=== PATIENT | female | born 1960 | race Caucasian/White ===

== ENCOUNTER 2017-08-03 12:04 | Inpatient (IN) | payer MEDICAID ==
--- NOTE | 2017-08-03 12:20 | ED Physician Chart ---
ED Chief Complaint/HPI - Patient Information Date Seen:: 08/03/17 Time Seen:: 12:10 Chief Complaint:: Weakness History of Present Illness:: onset x one day of weakness and dizziness; pt denies trauma, H/As, S/T, neck pain, cough, C/P. SOB, Abd. Pain, A/N/V/D/C, fever, chills, or urinary s/s Allergies:: Allergies Allergy/AdvReac Type Severity Reaction Status Date / Time warfarin Allergy Verified 07/18/16 21:13 Historian:: Patient, EMS Review:: Nurse's Note Reviewed, EMS run form Reviewed ED Review of Systems - Review of Systems General/Constitutional: No fever, No chills, No weight loss, No weakness, No diaphoresis, No edema, No loss of appetite Skin: No skin lesions, No rash, No bruising Head: No headache, No light-headedness Eyes: No loss of vision, No pain, No diplopia ENT: No earache, No nasal drainage, No sore throat, No tinnitus Neck: No neck pain, No swelling, No thyromegaly, No stiffness, No mass noted Cardio Vascular: No chest pain, No palpitations, No PND, No orthopnea, No edema Pulmonary: No SOB, No cough, No sputum, No wheezing GI: No nausea, No vomiting, No diarrhea, No pain, No melena, No hematochezia, No constipation, No hematemesis G/U: No dysuria, No frequency, No hematuria, No nacturia [employer] Gas: No vaginal discharge, No abnormal vaginal bleed, No contraction Musculoskeletal: No bone or joint pain, No back pain, No muscle pain Endocrine: Polyuria, Polydipsia Psychiatric: No prior psych history, No depression, No anxiety, No suicidal ideation Hematopoietic: No bruising, No lymphadenopathy Allergic/Immuno: No urticaria, No angioedema Neurological: No syncope, No focal symptoms, No weakness, No paresthesia, No headache, No seizure, No dizziness, No confusion, No vertigo ED Past Medical History - Past Medical History Obtainable: Yes Past Medical History: DM Family History: Diabetes [place] Social History: Non Smoker, No Alcohol, No Drug Use, Single, Homeless Surgical History: None Psychiatricy History: None Medication: Reviewed Family Medical History - Family Member Mother History Unknown: Yes ED Physical Exam - Physical Examination General/Constitutional: Awake, Well-developed, well-nourished, Alert, No distress, GCS 15, Non-toxic appearing, Ambulatory Head: Atraumatic Eyes: Lids, conjuctiva normal, PERRL, EOMI Skin: Nl inspection, No rash, No skin lesions, No ecchymosis, Well hydrated, No lymphadenopathy ENMT: External ears, nose nl, TM canals nl, Nasal exam nl, Lips, teeth, gums nl , Oropharynx nl, Tonsils nl Neck: Nontender, Full ROM w/o pain, No JVD, No nuchal rigidity, No bruit, No mass, No stridor Respiratory: Nl effort/Exclusion, Clear to Auscultation, No Wheeze/Rhonchi/Rales Cardio Vascular: RRR, No murmur, gallop, rubs, NL S1 S2, Carotid/Femoral/Distal pulses equal bilaterally GI: No tenderness/rebounding/guarding, No organomegaly, No hernia, Normal BS's, Nondistended, No mass/bruits, No McBurney tenderness : No CVA tenderness Extremities: No tenderness or effusion, Full ROM, normal strength in all extremities, No edema, Normal digits & nails Neuro/Psych: Alert/oriented, DTR's symmetric, Normal sensory exam, Normal motor strength, Judgement/insight normal, Mood normal, Normal gait, No focal deficits Misc: Normal back, No paraspinal tenderness ED Labs/Radiology/EKG Results - Lab Results Comments:: Glucose: 641; BUN: 30; + Ketones ED Septic Shock - . Is Septic Shock (SBP<90, OR Lactate>4 mmol\L) present?: No ED Reassessment (Disposition) - Reassessment Reassessment Condition:: Improved - Diagnosis Diagnosis:: Uncontrolled Diabetes; Dehydration; DKA; Diabetes Mellitus; Hyperglycemia; Ketosis - Aftercare/Follow up Instructions Aftercare/Follow-Up Instructions:: Counseled pt regarding lab results/diagnosis & need follow up, Counseled pt & family regarding lab results/diagnosis & need follow up - Patient Disposition Discharge/Transfer:: Acute Care w/in this hosp Accepting Physician:: Dr. Saini Time Called:: 1400 Time Responded:: 14:00 Admitted to:: Telemetry Spoke to:: Dr. Saini Admitting Medical Physician:: Dr. Saini Condition at Disposition:: Stable, Improved
[2017-08-03] MEDS ORDERED: Sodium Chloride 0.9% 1,000 ML IV ONE (12:21)
[2017-08-03] MEDS ORDERED: Haloperidol Lactate 5 mg/mL 1mL Vial IM STA (12:51)
[2017-08-03] MEDS ORDERED: Haloperidol Lactate 5 mg/mL 1mL Vial ONE (12:53)
[2017-08-03 13:00] LABS: % EOSINOPHILS 0.3 % (0.0-5.0); % LYMPHOCYTES 13.6 % (20.0-50.0); % NEUTROPHILS 79.1 % (40.0-80.0); HEMOGLOBIN 16.8 gm/dL (12-16); LYMPHOCYTE ABSOLUTE 1.3 Th/cmm (1.5-3.0); MEAN CELL VOLUME 90.5 fl (81-100); MEAN CORPUSCULAR HEMOGLOBIN 29.4 pg (27.0-31.0); MEAN CORPUSCULAR HGB CONC 32.5 pg (28.0-36.0); MEAN PLATELET VOLUME 9.8 fl; MONOCYTE ABSOLUTE 0.7 Th/cmm (0.3-1.0); NEUTROPHILE ABSOLUTE 7.3 Th/cmm (1.8-8.0); WHITE BLOOD COUNT 9.3 Th/cmm (4.8-10.8)
[2017-08-03 13:01] LABS: HEMATOCRIT 51.5 % (41.0-60); PLATELET COUNT 164 Th/cmm (150-400)
[2017-08-03 13:15] LABS: INR 1.08 (0.5-1.4); PROTHROMBIN TIME (TEST) 11.2 SECONDS (9.5-11.5)
[2017-08-03 13:20] LABS: ALB/GLOB RATIO 1.1 (1.0-1.8); ALBUMIN 4.3 gm/dL (3.7-5.3); ALKALINE PHOSPHATASE 171 U/L (34-104); AMYLASE SERUM 72 U/L (29-103); ANION GAP 16.2 (7.0-16.0); BUN - UREA NITROGEN 30 mg/dL (7-25); CARBON DIOXIDE 27.1 mEq/L (21.0-31.0); CHLORIDE 101 mEq/L (98-107); CHOLESTEROL 156 mg/dL (<200); CREATININE - SERUM 0.9 mg/dL (0.6-1.2); GFR AFRICAN-AMERICAN > 60.0 ml/min (>90); GFR NON AFRICAN-AMERICAN > 60.0 ml/min; HDL -HIGH DENSITY LIPOPROTEIN 40 mg/dL (23-92); LIPASE 97 U/L (11-82); POTASSIUM SERUM 4.3 mEq/L (3.5-5.1); SGOT 54 U/L (13-39); SGPT/ALT 67 U/L (7-52); SODIUM SERUM 140 mEq/L (136-145); TOTAL PROTEIN,SERUM 8.2 gm/dL (6.0-8.3); TRIGLYCERIDES 127 mg/dL (<150)
[2017-08-03 13:24] LABS: GLUCOSE 641 mg/dL (70-105)
[2017-08-03] MEDS ORDERED: INSULIN HUMAN REGULAR 100 UNITS/ML UNIT IV ONE (13:26)
[2017-08-03] MEDS ORDERED: INSULIN HUMAN REGULAR 100 UNITS/ML UNIT ONE ×2 (13:57→14:30)
[2017-08-03 14:40] LABS: A1C % 12.3 % (4.0-6.0)
[2017-08-03] MEDS ORDERED: Sodium Chloride 0.9% 1,000 ML IV SCH (15:44)
[2017-08-03] MEDS: Sodium Chloride 0.45% 1,000 ML IV SCH (17:32)
[2017-08-03 17:51] VITALS: BP 157/56
[2017-08-03] MEDS ORDERED: INSULIN ASPART SLIDING SCALE 100 UNITS/ML UNIT SUBQ SCH ×2 (21:00)
[2017-08-03 22:15] LABS: URINE MICROSCOPIC INDICATED? YES; URINE SOURCE CLEAN C
[2017-08-03 22:22] LABS: URINE BILIRUBIN NEGATIVE (NEGATIVE); URINE BLOOD TRACE (NEGATIVE); URINE GLUCOSE (UA) >=1000 mg/dL (NEGATIVE); URINE KETONE NEGATIVE (NEGATIVE); URINE LEUKOCYTE ESTERASE NEGATIVE (NEGATIVE); URINE NITRATE POSITIVE (NEGATIVE); URINE PROTEIN 100 mg/dL (NEGATIVE); URINE UROBILINOGEN 0.2 E.U./dL (0.2 - 1.0)
[2017-08-03 22:27] LABS: URINE CLARITY HAZY (CLEAR); URINE COLOR YELLOW
[2017-08-03 22:34] LABS: URINE RBC 0-2 /hpf (0-5)
[2017-08-03 22:36] LABS: URINE BACTERIA MANY /hpf (NONE SEEN); URINE EPITHELIAL CELLS MODERATE /lpf (FEW)
[2017-08-03 22:48] LABS: AMPHETAMINE URINE NEGATIVE (NEGATIVE); BARBITURATES URINE NEGATIVE (NEGATIVE); BENZODIAZEPINES QUAL URINE NEGATIVE (NEGATIVE); CANNABINOID THC NEGATIVE (NEGATIVE); COCAINE METABOLITE QUAL URINE NEGATIVE (NEGATIVE); METHADONE URINE NEGATIVE (NEGATIVE); METHAMPHETAMINES QUAL URINE NEGATIVE (NEGATIVE); OPIATES (MORPHINE) QUAL. URINE NEGATIVE (NEGATIVE); PHENCYCLIDINE (PCP) URINE NEGATIVE (NEGATIVE); TRICYCLICS (TCA) QUAL. URINE NEGATIVE (NEGATIVE)
[2017-08-04] MEDS ORDERED: INSULIN ASPART SLIDING SCALE 100 UNITS/ML UNIT SUBQ SCH
[2017-08-04] MEDS: Sodium Chloride 0.45% 1,000 ML IV SCH ×3 (00:15→15:14)
[2017-08-04 04:54] LABS: % EOSINOPHILS 1.2 % (0.0-5.0); % NEUTROPHILS 71.8 % (40.0-80.0); EOSINOPHILE ABSOLUTE 0.1 Th/cmm (0.1-0.4); LYMPHOCYTE ABSOLUTE 1.5 Th/cmm (1.5-3.0); MONOCYTE ABSOLUTE 0.5 Th/cmm (0.3-1.0)
[2017-08-04 05:08] LABS: % BASOPHILS 0.1 % (0.0-2.0); % MONOCYTES 6.9 % (2.0-10.0); MEAN CELL VOLUME 89.5 fl (81-100); MEAN CORPUSCULAR HEMOGLOBIN 30.4 pg (27.0-31.0); MEAN PLATELET VOLUME 9.3 fl; NEUTROPHILE ABSOLUTE 5.4 Th/cmm (1.8-8.0); RED BLOOD COUNT 4.38 Mil/cmm (3.80-5.10); RED CELL DISTRIBUTION WIDTH 14.5 % (11.5-20.0); WHITE BLOOD COUNT 7.5 Th/cmm (4.8-10.8)
[2017-08-04 05:21] LABS: HEMATOCRIT 39.2 % (41.0-60); HEMOGLOBIN 13.3 gm/dL (12-16); PLATELET COUNT 123 Th/cmm (150-400)
[2017-08-04 05:22] LABS: ANION GAP 11.6 (7.0-16.0); BUN - UREA NITROGEN 34 mg/dL (7-25); CALCIUM SERUM 8.7 mg/dL (8.6-10.3); CHLORIDE 109 mEq/L (98-107); CHOLESTEROL 103 mg/dL (<200); CREATININE - SERUM 0.7 mg/dL (0.6-1.2); GFR AFRICAN-AMERICAN > 60.0 ml/min (>90); GFR NON AFRICAN-AMERICAN > 60.0 ml/min; HDL -HIGH DENSITY LIPOPROTEIN 26 mg/dL (23-92); MAGNESIUM 1.6 mg/dL (1.9-2.7); POTASSIUM SERUM 3.6 mEq/L (3.5-5.1); SODIUM SERUM 140 mEq/L (136-145)
[2017-08-04 05:23] LABS: GLUCOSE 116 mg/dL (70-105)
[2017-08-04 07:18] LABS: TRIGLYCERIDES 113 mg/dL (<150)
[2017-08-04] MEDS: INSULIN ASPART SLIDING SCALE 100 UNITS/ML UNIT SUBQ SCH ×4 (08:45→21:38)
[2017-08-04] MEDS ORDERED: Pneumococcal Vaccine 0.5 mL Vial IM ONE (09:00)
--- NOTE | 2017-08-04 16:07 | History and Physical ---
History of Present Illness - HPI Vital Signs: Last Vital Signs Temp 96.6 F 08/04/17 12:00 Pulse 66 08/04/17 15:00 Resp 13 08/04/17 15:00 BP 130/64 08/04/17 15:00 Pulse Ox 97 08/04/17 15:00 Family Medical History - Family Member Mother History Unknown: Yes - Medications Home Medications: Home Medication Medication Instructions Recorded Type Insulin Aspart Sliding Scale See Protocol SUBQ ACHS #0 unit 01/15/16 Rx [NovoLOG INSULIN SLIDING SCALE] metFORMIN [Glucophage] 1,000 mg PO BID 07/18/16 History - Allergies Allergies/Adverse Reactions: Allergies Allergy/AdvReac Type Severity Reaction Status Date / Time warfarin Allergy Verified 07/18/16 21:13 - Lab Results All Lab Results last 24 hours: Laboratory Results - last 24 hr 08/03/17 08/03/17 08/03/17 16:58 19:01 20:25 WBC RBC Hgb Hct MCV MCH MCHC Differential RDW Plt Count MPV Neutrophils % Lymphocytes % Monocytes % Eosinophils % Basophils % Sodium Potassium Chloride Carbon Dioxide Anion Gap BUN Creatinine Est GFR ( Amer) Est GFR (Non-Af Amer) BUN/Creatinine Ratio Glucose POC Glucose 306 H 225 H Calcium Magnesium Triglycerides Cholesterol LDL Cholesterol Direct HDL Cholesterol TSH Urine Source CLEAN C Urine Color YELLOW Urine Clarity HAZY Urine pH 5.0 Ur Specific [place] 1.025 Urine Protein 100 H Urine Glucose (UA) >=1000 H Urine Ketones NEGATIVE Urine Blood TRACE Urine Nitrate POSITIVE H Urine Bilirubin NEGATIVE Urine Urobilinogen 0.2 Ur Leukocyte Esterase NEGATIVE Urine RBC 0-2 Urine WBC 10-25 H Ur Epithelial Cells MODERATE Urine Bacteria MANY Urine Opiates Screen Urine Methadone Screen Ur Barbiturates Screen Ur Tricyclics Screen Ur Phencyclidine Scrn Amphetamines Screen U Methamphetamines Scrn U Benzodiazepines Scrn U Cocaine Metab Screen U Cannabinoids Screen 08/03/17 08/03/17 08/04/17 20:25 22:40 00:07 WBC RBC Hgb Hct MCV MCH MCHC Differential RDW Plt Count MPV Neutrophils % Lymphocytes % Monocytes % Eosinophils % Basophils % Sodium Potassium Chloride Carbon Dioxide Anion Gap BUN Creatinine Est GFR ( Amer) Est GFR (Non-Af Amer) BUN/Creatinine Ratio Glucose POC Glucose 496 H* 445 H Calcium Magnesium Triglycerides Cholesterol LDL Cholesterol Direct HDL Cholesterol TSH Urine Source Urine Color Urine Clarity Urine pH Ur Specific [place] Urine Protein Urine Glucose (UA) Urine Ketones Urine Blood Urine Nitrate Urine Bilirubin Urine Urobilinogen Ur Leukocyte Esterase Urine RBC Urine WBC Ur Epithelial Cells Urine Bacteria Urine Opiates Screen NEGATIVE Urine Methadone Screen NEGATIVE Ur Barbiturates Screen NEGATIVE Ur Tricyclics Screen NEGATIVE Ur Phencyclidine Scrn NEGATIVE Amphetamines Screen NEGATIVE U Methamphetamines Scrn NEGATIVE U Benzodiazepines Scrn NEGATIVE U Cocaine Metab Screen NEGATIVE U Cannabinoids Screen NEGATIVE 08/04/17 08/04/17 08/04/17 02:10 04:30 04:30 WBC 7.5 RBC 4.38 Hgb 13.3 D Hct 39.2 L D MCV 89.5 MCH 30.4 MCHC Differential 34.0 RDW 14.5 Plt Count 123 L D MPV 9.3 Neutrophils % 71.8 Lymphocytes % 20.0 Monocytes % 6.9 Eosinophils % 1.2 Basophils % 0.1 Sodium 140 Potassium 3.6 Chloride 109 H Carbon Dioxide 23.0 Anion Gap 11.6 BUN 34 H Creatinine 0.7 Est GFR ( Amer) > 60.0 Est GFR (Non-Af Amer) > 60.0 BUN/Creatinine Ratio 48.6 Glucose 116 H D POC Glucose 90 Calcium 8.7 Magnesium 1.6 L Triglycerides 113 Cholesterol 103 LDL Cholesterol Direct 85 HDL Cholesterol 26 TSH Urine Source Urine Color Urine Clarity Urine pH Ur Specific [place] Urine Protein Urine Glucose (UA) Urine Ketones Urine Blood Urine Nitrate Urine Bilirubin Urine Urobilinogen Ur Leukocyte Esterase Urine RBC Urine WBC Ur Epithelial Cells Urine Bacteria Urine Opiates Screen Urine Methadone Screen Ur Barbiturates Screen Ur Tricyclics Screen Ur Phencyclidine Scrn Amphetamines Screen U Methamphetamines Scrn U Benzodiazepines Scrn U Cocaine Metab Screen U Cannabinoids Screen 08/04/17 08/04/17 08/04/17 04:30 04:37 07:51 WBC RBC Hgb Hct MCV MCH MCHC Differential RDW Plt Count MPV Neutrophils % Lymphocytes % Monocytes % Eosinophils % Basophils % Sodium Potassium Chloride Carbon Dioxide Anion Gap BUN Creatinine Est GFR ( Amer) Est GFR (Non-Af Amer) BUN/Creatinine Ratio Glucose POC Glucose 131 H 188 H Calcium Magnesium Triglycerides Cholesterol LDL Cholesterol Direct HDL Cholesterol TSH 1.17 Urine Source Urine Color Urine Clarity Urine pH Ur Specific [place] Urine Protein Urine Glucose (UA) Urine Ketones Urine Blood Urine Nitrate Urine Bilirubin Urine Urobilinogen Ur Leukocyte Esterase Urine RBC Urine WBC Ur Epithelial Cells Urine Bacteria Urine Opiates Screen Urine Methadone Screen Ur Barbiturates Screen Ur Tricyclics Screen Ur Phencyclidine Scrn Amphetamines Screen U Methamphetamines Scrn U Benzodiazepines Scrn U Cocaine Metab Screen U Cannabinoids Screen 08/04/17 11:58 WBC RBC Hgb Hct MCV MCH MCHC Differential RDW Plt Count MPV Neutrophils % Lymphocytes % Monocytes % Eosinophils % Basophils % Sodium Potassium Chloride Carbon Dioxide Anion Gap BUN Creatinine Est GFR ( Amer) Est GFR (Non-Af Amer) BUN/Creatinine Ratio Glucose POC Glucose 475 H* Calcium Magnesium Triglycerides Cholesterol LDL Cholesterol Direct HDL Cholesterol TSH Urine Source Urine Color Urine Clarity Urine pH Ur Specific [place] Urine Protein Urine Glucose (UA) Urine Ketones Urine Blood Urine Nitrate Urine Bilirubin Urine Urobilinogen Ur Leukocyte Esterase Urine RBC Urine WBC Ur Epithelial Cells Urine Bacteria Urine Opiates Screen Urine Methadone Screen Ur Barbiturates Screen Ur Tricyclics Screen Ur Phencyclidine Scrn Amphetamines Screen U Methamphetamines Scrn U Benzodiazepines Scrn U Cocaine Metab Screen U Cannabinoids Screen Microbiology 08/03/17 15:25 - Final Nares - Assessment Assessment: Current Active Problems Problem Status Onset DIZZINESS WITH ELEVATED BLOOD GLUCOSE Acute
[2017-08-05] MEDS: INSULIN ASPART SLIDING SCALE 100 UNITS/ML UNIT SUBQ SCH ×4 (07:12→21:33)
[2017-08-05 09:11] LABS: % BASOPHILS 0.2 % (0.0-2.0); % MONOCYTES 4.5 % (2.0-10.0); % NEUTROPHILS 75.3 % (40.0-80.0); EOSINOPHILE ABSOLUTE 0.1 Th/cmm (0.1-0.4); HEMOGLOBIN 14.9 gm/dL (12-16); LYMPHOCYTE ABSOLUTE 1.2 Th/cmm (1.5-3.0); MEAN CELL VOLUME 90.8 fl (81-100); MEAN CORPUSCULAR HEMOGLOBIN 29.4 pg (27.0-31.0); MEAN CORPUSCULAR HGB CONC 32.4 pg (28.0-36.0); MEAN PLATELET VOLUME 9.5 fl; MONOCYTE ABSOLUTE 0.3 Th/cmm (0.3-1.0); NEUTROPHILE ABSOLUTE 4.7 Th/cmm (1.8-8.0); PLATELET COUNT 137 Th/cmm (150-400); RED BLOOD COUNT 5.07 Mil/cmm (3.80-5.10); RED CELL DISTRIBUTION WIDTH 14.1 % (11.5-20.0); WHITE BLOOD COUNT 6.3 Th/cmm (4.8-10.8)
[2017-08-05 09:14] LABS: HEMATOCRIT 46.1 % (41.0-60)
[2017-08-05 09:34] LABS: BUN - UREA NITROGEN 30 mg/dL (7-25); CALCIUM SERUM 9.4 mg/dL (8.6-10.3); CARBON DIOXIDE 23.9 mEq/L (21.0-31.0); CHLORIDE 101 mEq/L (98-107); CREATININE - SERUM 0.7 mg/dL (0.6-1.2); GFR AFRICAN-AMERICAN > 60.0 ml/min (>90); GFR NON AFRICAN-AMERICAN > 60.0 ml/min; GLUCOSE 325 mg/dL (70-105); POTASSIUM SERUM 3.9 mEq/L (3.5-5.1); SODIUM SERUM 132 mEq/L (136-145)
--- NOTE | 2017-08-05 16:29 | General Progress Note ---
Subjective - Review of Systems Events since last encounter: patient c/o dizzines and weakness in no acute distress Objective - Results Result Diagrams: 08/05/17 08:45 08/05/17 08:45 Recent Labs: Laboratory Last Values WBC 6.3 Th/cmm (4.8-10.8) 08/05/17 08:45 RBC 5.07 Mil/cmm (3.80-5.10) 08/05/17 08:45 Hgb 14.9 gm/dL (12-16) 08/05/17 08:45 Hct 46.1 % (41.0-60) D 08/05/17 08:45 MCV 90.8 fl (81-100) 08/05/17 08:45 MCH 29.4 pg (27.0-31.0) 08/05/17 08:45 MCHC Differential 32.4 pg (28.0-36.0) 08/05/17 08:45 RDW 14.1 % (11.5-20.0) 08/05/17 08:45 Plt Count 137 Th/cmm (150-400) L 08/05/17 08:45 MPV 9.5 fl 08/05/17 08:45 Neutrophils % 75.3 % (40.0-80.0) 08/05/17 08:45 Lymphocytes % 19.0 % (20.0-50.0) L 08/05/17 08:45 Monocytes % 4.5 % (2.0-10.0) 08/05/17 08:45 Eosinophils % 1.0 % (0.0-5.0) 08/05/17 08:45 Basophils % 0.2 % (0.0-2.0) 08/05/17 08:45 PT 11.2 SECONDS (9.5-11.5) 08/03/17 12:40 INR 1.08 (0.5-1.4) 08/03/17 12:40 Sodium 132 mEq/L (136-145) L 08/05/17 08:45 Potassium 3.9 mEq/L (3.5-5.1) 08/05/17 08:45 Chloride 101 mEq/L (98-107) 08/05/17 08:45 Carbon Dioxide 23.9 mEq/L (21.0-31.0) 08/05/17 08:45 Anion Gap 11.0 (7.0-16.0) 08/05/17 08:45 BUN 30 mg/dL (7-25) H 08/05/17 08:45 Creatinine 0.7 mg/dL (0.6-1.2) 08/05/17 08:45 Est GFR ( Amer) > 60.0 ml/min (>90) 08/05/17 08:45 Est GFR (Non-Af Amer) > 60.0 ml/min 08/05/17 08:45 BUN/Creatinine Ratio 42.9 08/05/17 08:45 Glucose 325 mg/dL (70-105) H 08/05/17 08:45 POC Glucose 387 MG/DL (70 - 105) H 08/05/17 16:18 Hemoglobin A1c % 12.3 % (4.0-6.0) H 08/03/17 12:40 Calcium 9.4 mg/dL (8.6-10.3) 08/05/17 08:45 Magnesium 1.6 mg/dL (1.9-2.7) L 08/04/17 04:30 Total Bilirubin 1.0 mg/dL (0.3-1.0) 08/03/17 12:40 AST 54 U/L (13-39) H 08/03/17 12:40 ALT 67 U/L (7-52) H 08/03/17 12:40 Alkaline Phosphatase 171 U/L (34-104) H 08/03/17 12:40 Creatine Kinase 55 U/L (30-223) 08/03/17 12:40 Troponin I < 0.01 ng/mL (0.01-0.05) L 08/03/17 12:40 B-Natriuretic Peptide 38.1 pg/mL (5.0-100.0) 08/03/17 12:40 Total Protein 8.2 gm/dL (6.0-8.3) 08/03/17 12:40 Albumin 4.3 gm/dL (3.7-5.3) 08/03/17 12:40 Globulin 3.9 gm/dL 08/03/17 12:40 Albumin/Globulin Ratio 1.1 (1.0-1.8) 08/03/17 12:40 Triglycerides 113 mg/dL (<150) 08/04/17 04:30 Cholesterol 103 mg/dL (<200) 08/04/17 04:30 LDL Cholesterol Direct 85 mg/dL (75-193) 08/04/17 04:30 HDL Cholesterol 26 mg/dL (23-92) 08/04/17 04:30 Amylase 72 U/L (29-103) 08/03/17 12:40 Lipase 97 U/L (11-82) H 08/03/17 12:40 TSH 1.17 uIU/ml (0.34-5.60) 08/04/17 04:30 Serum , Qual NEGATIVE (NEGATIVE) 08/03/17 12:22 Urine Source CLEAN C 08/03/17 20:25 Urine Color YELLOW 08/03/17 20:25 Urine Clarity HAZY (CLEAR) 08/03/17 20:25 Urine pH 5.0 (4.6 - 8.0) 08/03/17 20:25 Ur Specific [place] 1.025 (1.005-1.030) 08/03/17 20:25 Urine Protein 100 mg/dL (NEGATIVE) H 08/03/17 20:25 Urine Glucose (UA) >=1000 mg/dL (NEGATIVE) H 08/03/17 20:25 Urine Ketones NEGATIVE mg/dL (NEGATIVE) 08/03/17 20:25 Urine Blood TRACE (NEGATIVE) 08/03/17 20:25 Urine Nitrate POSITIVE (NEGATIVE) H 08/03/17 20:25 Urine Bilirubin NEGATIVE (NEGATIVE) 08/03/17 20:25 Urine Urobilinogen 0.2 E.U./dL (0.2 - 1.0) 08/03/17 20:25 Ur Leukocyte Esterase NEGATIVE (NEGATIVE) 08/03/17 20:25 Urine RBC 0-2 /hpf (0-5) 08/03/17 20:25 Urine WBC 10-25 /hpf (0-5) H 08/03/17 20:25 Ur Epithelial Cells MODERATE /lpf (FEW) 08/03/17 20:25 Urine Bacteria MANY /hpf (NONE SEEN) 08/03/17 20:25 Urine Opiates Screen NEGATIVE (NEGATIVE) 08/03/17 20:25 Urine Methadone Screen NEGATIVE (NEGATIVE) 08/03/17 20:25 Ur Barbiturates Screen NEGATIVE (NEGATIVE) 08/03/17 20:25 Ur Tricyclics Screen NEGATIVE (NEGATIVE) 08/03/17 20:25 Ur Phencyclidine Scrn NEGATIVE (NEGATIVE) 08/03/17 20:25 Amphetamines Screen NEGATIVE (NEGATIVE) 08/03/17 20:25 U Methamphetamines Scrn NEGATIVE (NEGATIVE) 08/03/17 20:25 U Benzodiazepines Scrn NEGATIVE (NEGATIVE) 08/03/17 20:25 U Cocaine Metab Screen NEGATIVE (NEGATIVE) 08/03/17 20:25 U Cannabinoids Screen NEGATIVE (NEGATIVE) 08/03/17 20:25 Serum Ketones SMALL (NEGATIVE) H 08/03/17 12:40 - Physical Exam Vitals and I&O: Vital Signs Temp 97.5 F 08/05/17 13:00 Pulse 67 08/05/17 13:00 Resp 17 08/05/17 13:00 BP 109/75 08/05/17 13:00 Pulse Ox 98 08/05/17 13:00 Intake & Output 08/04/17 08/05/17 08/05/17 18:59 06:59 18:59 Intake Total 1590 1000 400 Output Total 1200 Balance 390 1000 400 Weight (lbs) 45.359 kg 54.159 kg Intake: Intake, IV Amount 950 1000 Sodium Chloride 0.45% 1, 950 1000 000 ml @ 150 mls/hr IV . Q6H40M [facility] Rx#:[id number] Oral 640 400 Output: Urine 1200 Other: # Voids 2 # Bowel Movements 1 2 Active Medications: Current Medications Escitalopram Oxalate (Lexapro) 5 mg PO DAILY WINSTON PRN Reason: Protocol Stop: 10/05/17 08:59 Sodium Chloride (Nacl 0.45%) 1,000 mls @ 150 mls/hr IV .Q6H40M [facility] Stop: 10/02/17 17:14 Last Infusion: 08/04/17 22:00 Dose: Infused Insulin Aspart (Novolog Insulin Sliding Scale) 0 units SUBQ ACHS WINSTON PRN Reason: Protocol Stop: 10/03/17 07:29 Last Admin: 08/05/17 13:10 Dose: 12 units Lorazepam (Ativan) 1 mg IVP Q6HR PRN; Protocol PRN Reason: Agitation Stop: 10/02/17 17:08 Metformin HCl (Glucophage) 1,000 mg PO BID [facility] Stop: 10/03/17 08:59 Last Admin: 08/05/17 09:31 Dose: 1,000 mg Mupirocin (Bactroban Oint) 1 appl TP BID WINSTON Stop: 10/03/17 16:59 Last Admin: 08/05/17 09:31 Dose: 1 appl Zolpidem Tartrate (Ambien) 5 mg PO HS PRN PRN Reason: Insomnia Stop: 10/02/17 18:39 - Procedures Procedures: Procedures Procedure Code Date ELECTROCARDIOGRAM 89.52 05/25/95 INJECT/INFUSE NEC 99.29 12/02/12 NASAL SURGERY PROCEDURE 64908 12/05/01 REMOVE NASAL PACKING 97.32 12/05/01 THER/PROPH/DIAG INJ SC/IM 16112 12/02/12 Assessment/Plan - Problem List Patient Problems: All Active Problems DIZZINESS WITH ELEVATED BLOOD GLUCOSE (Acute) Blood glucose elevated (Acute) R73.9 Diabetes mellitus type 2, uncontrolled, without complications (Acute) E11.65 - Assessment Assessment: Current Active Problems Problem Status Onset DIZZINESS WITH ELEVATED BLOOD GLUCOSE Acute Nutritional Asmnt/Malnutr-PDOC - Dietary Evaluation Malnutrition Findings (Please click <Entered> for more info): Nutritional Asmnt/Malnutrition Start: 08/04/17 15: 39 Text: Status: Complete Freq: Document 08/04/17 15:40 [id number] (Rec: 08/04/17 16:02 [id number] Nutritional Asmnt/Malnutrition Patient General Information Nutritional Screening High Risk Consult Diagnosis DKA, uncontrolled DM Pertinent Medical Hx/Surgical Hx DM Subjective Information Consult received for BG>600. Pt seen lying in bed, awake and alert during the time of visit, no teeth noted. Pt complained did not like baby food, stated she is able to chew, ground diet ok. Pt stated like milk shake, eat everything, "don't care blood sugar". Nutrition education attempted, pt wanted RD to get out. Per notes, PO intake 75% . Current Diet Order/ Nutrition Support CCHO 60gm pureed Pertinent Medications Nacl 0.45%, glucopage, novolog Pertinent Labs 08/04 Na 140, K 3.6, Cl 109, BUN 34, Cr 0.7, Glucose 116, POC 90-475, Mg 1.6 08/03 A1c 12.3, glucose 641 Nutritional Hx/Data Height 1.5 m Height (Calculated Centimeters) 149.9 Current Weight (lbs) 45.359 kg Weight (Calculated Kilograms) 45.4 Weight (Calculated Grams) 53051.2 [place] Body Weight 98 % [place] Body Weight 102 Body Mass Index (BMI) 20.2 Weight Status Approriate GI Symptoms GI Symptoms None Last BM none Difficult in: None Usual diet at home Per pt 3 meals and 1 snack daily, no diet restriction, take DM medicine. Skin Integrity/Comment: intact Estimated Nutritional Goals BEE in Kcals: Using Current wt Calories/Kcals/Kg 25-30 Kcals Calculated 2456-5772 Protein: Using Current wt Protein g/k-1.2 Protein Calculated 46-55 Fluid: ml 4421-0737 Nutritional Problem 1. Problem Problem altered nutrition related lab values Etiology hx of DM, possible imbalanced carbohydrate intake Signs/Symptoms: A1c 12.3, glucose 641 Malnutrition Alert Protein-Calorie Malnutrition N/A Is there a minimum of two criteria No selected? Query Text:Check all the applicable criteria. A minimum of two criteria are recommended for diagnosis of either severe or non-severe malnutrition. Intervention/Recommendation Comments 1. Continue with [facility] diet. Notified RN, RN will talk to MD for diet texture change. 2. Monitor PO intake, wt weekly, labs and skin integrity 3. F/U as moderate risk in 3-5 days, 08/07-08/09 Expected Outcomes/Goals Expected Outcomes/Goals 1. PO intake to meet at least 75% of nutritional needs with tolerance. 2. Wt stability, skin to remain intact, labs to improve
--- NOTE | 2017-08-05 20:07 | Consultation ---
DATE OF CONSULTATION: 08/05/2017 PHYSICIAN REQUESTING CONSULTATION: Dr. Saini. REASON FOR CONSULTATION: Depression. HISTORY OF PRESENT ILLNESS: This patient is a 57-year-old woman, currently homeless. Information obtained by directly interviewing the patient as well as reviewing the admission papers. JUSTIFICATION OF HOSPITALIZATION: The patient is admitted here on a voluntary basis after she was medically cleared in the ICU. The patient has been transferred to the [facility] unit, where the consult has been done. The patient has been mentioning that she has been homeless, but she never had any problem with taking any psychotropic medication, but the patient is stating that she is sick and then she cannot be on the streets and she needs to find a safe place to live. The patient's coping skills at this time are noted to be very poor. Insight and judgment are also noted to be very poor. The patient has been stating that she is feeling frustrated and she would be better off , but she does not have any clear plans what she wants to do. PAST PSYCHIATRIC HISTORY: None. MEDICAL HISTORY: Physical examination has been done by Dr. Saini and is significant for diabetes. SUBSTANCE ABUSE HISTORY: None. PHYSICAL OR SEXUAL ABUSE HISTORY: None. LEGAL PROBLEMS: None at this time. SOCIAL HISTORY: The patient is stating that she does not have any children and parents are and the patient is stating that she does not have any support system. MENTAL EXAMINATION: The patient is a 57-year-old, looking her stated age, cooperative. Eye contact is fair. Mood is noted to be depressed. Affect is constricted. Insight and judgment at this time are noted to be still impaired. Impulse control seems to be poor. Coping skills are also noted to be poor. The patient has been having difficult time to cope with the stress. The patient has been isolative and withdrawn at this time, but at any time of the time talking about any discharge plan. The patient is tearful and crying, stating that she does not know where to go. ASSESSMENT: AXIS I: Depressive disorder, not otherwise specified. AXIS II: None. AXIS III: Diabetes mellitus. IMMEDIATE TREATMENT PLAN: The patient is going to be started with 5 mg of Lexapro and the patient is going to be followed up with supportive therapy. Once stabilized, the patient is going to be discharged to [facility] to be followed up on an outpatient basis. JOB# [id number]
[2017-08-06] MEDS: INSULIN ASPART SLIDING SCALE 100 UNITS/ML UNIT SUBQ SCH ×4 (07:14→20:57)
[2017-08-06] MEDS: Escitalopram Oxalate 5 mg Tab PO SCH (08:38)
--- NOTE | 2017-08-06 18:42 | Internal Medicine Prog Note ---
Internal Medicine Subjective - Subjective Service Date: 08/06/17 Patient seen and examined:: with staff Patient is:: awake Per staff patient has:: tolerating meds Internal Medicine Objective - Results Result Diagrams: 08/05/17 08:45 08/05/17 08:45 Recent Labs: Laboratory Last Values WBC 6.3 Th/cmm (4.8-10.8) 08/05/17 08:45 RBC 5.07 Mil/cmm (3.80-5.10) 08/05/17 08:45 Hgb 14.9 gm/dL (12-16) 08/05/17 08:45 Hct 46.1 % (41.0-60) D 08/05/17 08:45 MCV 90.8 fl (81-100) 08/05/17 08:45 MCH 29.4 pg (27.0-31.0) 08/05/17 08:45 MCHC Differential 32.4 pg (28.0-36.0) 08/05/17 08:45 RDW 14.1 % (11.5-20.0) 08/05/17 08:45 Plt Count 137 Th/cmm (150-400) L 08/05/17 08:45 MPV 9.5 fl 08/05/17 08:45 Neutrophils % 75.3 % (40.0-80.0) 08/05/17 08:45 Lymphocytes % 19.0 % (20.0-50.0) L 08/05/17 08:45 Monocytes % 4.5 % (2.0-10.0) 08/05/17 08:45 Eosinophils % 1.0 % (0.0-5.0) 08/05/17 08:45 Basophils % 0.2 % (0.0-2.0) 08/05/17 08:45 PT 11.2 SECONDS (9.5-11.5) 08/03/17 12:40 INR 1.08 (0.5-1.4) 08/03/17 12:40 Sodium 132 mEq/L (136-145) L 08/05/17 08:45 Potassium 3.9 mEq/L (3.5-5.1) 08/05/17 08:45 Chloride 101 mEq/L (98-107) 08/05/17 08:45 Carbon Dioxide 23.9 mEq/L (21.0-31.0) 08/05/17 08:45 Anion Gap 11.0 (7.0-16.0) 08/05/17 08:45 BUN 30 mg/dL (7-25) H 08/05/17 08:45 Creatinine 0.7 mg/dL (0.6-1.2) 08/05/17 08:45 Est GFR ( Amer) > 60.0 ml/min (>90) 08/05/17 08:45 Est GFR (Non-Af Amer) > 60.0 ml/min 08/05/17 08:45 BUN/Creatinine Ratio 42.9 08/05/17 08:45 Glucose 325 mg/dL (70-105) H 08/05/17 08:45 POC Glucose 374 MG/DL (70 - 105) H 08/06/17 17:30 Hemoglobin A1c % 12.3 % (4.0-6.0) H 08/03/17 12:40 Calcium 9.4 mg/dL (8.6-10.3) 08/05/17 08:45 Magnesium 1.6 mg/dL (1.9-2.7) L 08/04/17 04:30 Total Bilirubin 1.0 mg/dL (0.3-1.0) 08/03/17 12:40 AST 54 U/L (13-39) H 08/03/17 12:40 ALT 67 U/L (7-52) H 08/03/17 12:40 Alkaline Phosphatase 171 U/L (34-104) H 08/03/17 12:40 Creatine Kinase 55 U/L (30-223) 08/03/17 12:40 Troponin I < 0.01 ng/mL (0.01-0.05) L 08/03/17 12:40 B-Natriuretic Peptide 38.1 pg/mL (5.0-100.0) 08/03/17 12:40 Total Protein 8.2 gm/dL (6.0-8.3) 08/03/17 12:40 Albumin 4.3 gm/dL (3.7-5.3) 08/03/17 12:40 Globulin 3.9 gm/dL 08/03/17 12:40 Albumin/Globulin Ratio 1.1 (1.0-1.8) 08/03/17 12:40 Triglycerides 113 mg/dL (<150) 08/04/17 04:30 Cholesterol 103 mg/dL (<200) 08/04/17 04:30 LDL Cholesterol Direct 85 mg/dL (75-193) 08/04/17 04:30 HDL Cholesterol 26 mg/dL (23-92) 08/04/17 04:30 Amylase 72 U/L (29-103) 08/03/17 12:40 Lipase 97 U/L (11-82) H 08/03/17 12:40 TSH 1.17 uIU/ml (0.34-5.60) 08/04/17 04:30 Serum , Qual NEGATIVE (NEGATIVE) 08/03/17 12:22 Urine Source CLEAN C 08/03/17 20:25 Urine Color YELLOW 08/03/17 20:25 Urine Clarity HAZY (CLEAR) 08/03/17 20:25 Urine pH 5.0 (4.6 - 8.0) 08/03/17 20:25 Ur Specific [place] 1.025 (1.005-1.030) 08/03/17 20:25 Urine Protein 100 mg/dL (NEGATIVE) H 08/03/17 20:25 Urine Glucose (UA) >=1000 mg/dL (NEGATIVE) H 08/03/17 20:25 Urine Ketones NEGATIVE mg/dL (NEGATIVE) 08/03/17 20:25 Urine Blood TRACE (NEGATIVE) 08/03/17 20:25 Urine Nitrate POSITIVE (NEGATIVE) H 08/03/17 20:25 Urine Bilirubin NEGATIVE (NEGATIVE) 08/03/17 20:25 Urine Urobilinogen 0.2 E.U./dL (0.2 - 1.0) 08/03/17 20:25 Ur Leukocyte Esterase NEGATIVE (NEGATIVE) 08/03/17 20:25 Urine RBC 0-2 /hpf (0-5) 08/03/17 20:25 Urine WBC 10-25 /hpf (0-5) H 08/03/17 20:25 Ur Epithelial Cells MODERATE /lpf (FEW) 08/03/17 20:25 Urine Bacteria MANY /hpf (NONE SEEN) 08/03/17 20:25 Urine Opiates Screen NEGATIVE (NEGATIVE) 08/03/17 20:25 Urine Methadone Screen NEGATIVE (NEGATIVE) 08/03/17 20:25 Ur Barbiturates Screen NEGATIVE (NEGATIVE) 08/03/17 20:25 Ur Tricyclics Screen NEGATIVE (NEGATIVE) 08/03/17 20:25 Ur Phencyclidine Scrn NEGATIVE (NEGATIVE) 08/03/17 20:25 Amphetamines Screen NEGATIVE (NEGATIVE) 08/03/17 20:25 U Methamphetamines Scrn NEGATIVE (NEGATIVE) 08/03/17 20:25 U Benzodiazepines Scrn NEGATIVE (NEGATIVE) 08/03/17 20:25 U Cocaine Metab Screen NEGATIVE (NEGATIVE) 08/03/17 20:25 U Cannabinoids Screen NEGATIVE (NEGATIVE) 08/03/17 20:25 Serum Ketones SMALL (NEGATIVE) H 08/03/17 12:40 - Physical Exam Vitals and I&O: Vital Signs Temp 97.9 F 08/06/17 16:00 Pulse 60 08/06/17 16:00 Resp 18 08/06/17 16:00 BP 134/88 08/06/17 16:00 Pulse Ox 97 08/06/17 16:00 Intake & Output 08/05/17 08/06/17 08/06/17 18:59 06:59 18:59 Intake Total 981 522 9747 Output Total 500 Balance 400 -140 2000 Weight (lbs) 119 lb 6.4 oz 132 lb 132 lb Intake: Oral 903 957 3394 Output: Urine 500 Other: # Voids 2 2 3 # Bowel Movements 2 2 0 Active Medications: Current Medications Escitalopram Oxalate (Lexapro) 5 mg PO DAILY [facility] PRN Reason: Protocol Stop: 10/05/17 08:59 Last Admin: 08/06/17 08:38 Dose: 5 mg Sodium Chloride (Nacl 0.45%) 1,000 mls @ 150 mls/hr IV .Q6H40M [facility] Stop: 10/02/17 17:14 Last Infusion: 08/04/17 22:00 Dose: Infused Insulin Aspart (Novolog Insulin Sliding Scale) 0 units SUBQ ACHS [facility] PRN Reason: Protocol Stop: 10/03/17 07:29 Last Admin: 08/06/17 17:38 Dose: 15 units Lorazepam (Ativan) 1 mg IVP Q6HR PRN; Protocol PRN Reason: Agitation Stop: 10/02/17 17:08 Metformin HCl (Glucophage) 1,000 mg PO BID [facility] Stop: 10/03/17 08:59 Last Admin: 08/06/17 16:57 Dose: 1,000 mg Mupirocin (Bactroban Oint) 1 appl TP BID [facility] Stop: 10/03/17 16:59 Last Admin: 08/06/17 16:58 Dose: 1 appl Zolpidem Tartrate (Ambien) 5 mg PO HS PRN PRN Reason: Insomnia Stop: 10/02/17 18:39 HEENT: NC/AT, PERRLA Neck: Supple Lungs: CTAB Abdomen: positive bowel sound Neurological: alert - Procedures Procedures: Procedures Procedure Code Date ELECTROCARDIOGRAM 89.52 05/25/95 INJECT/INFUSE NEC 99.29 12/02/12 NASAL SURGERY PROCEDURE 71502 12/05/01 REMOVE NASAL PACKING 97.32 12/05/01 THER/PROPH/DIAG INJ SC/IM 17347 12/02/12 Internal Medicine Assmt/Plan - Assessment Assessment: DIZZINESS WITH ELEVATED BLOOD GLUCOSE (Acute) Blood glucose elevated (Acute) R73.9 Diabetes mellitus type 2, uncontrolled, without complications (Acute) E11.65 - Plan Plan: follow up labs in am empiric ivabx monitor glucose cpm Nutritional Asmnt/Malnutr-PDOC - Dietary Evaluation Malnutrition Findings (Please click <Entered> for more info): Nutritional Asmnt/Malnutrition Start: 08/04/17 15: 39 Text: Status: Complete Freq: Document 08/04/17 15:40 [facility] (Rec: 08/04/17 16:02 [facility]NS[facility]) Nutritional Asmnt/Malnutrition Patient General Information Nutritional Screening High Risk Consult Diagnosis DKA, uncontrolled DM Pertinent Medical Hx/Surgical Hx DM Subjective Information Consult received for BG>600. Pt seen lying in bed, awake and alert during the time of visit, no teeth noted. Pt complained did not like baby food, stated she is able to chew, ground diet ok. Pt stated like milk shake, eat everything, "don't care blood sugar". Nutrition education attempted, pt wanted RD to get out. Per notes, PO intake 75% . Current Diet Order/ Nutrition Support CCHO 60gm pureed Pertinent Medications Nacl 0.45%, glucopage, novolog Pertinent Labs 08/04 Na 140, K 3.6, Cl 109, BUN 34, Cr 0.7, Glucose 116, POC 90-475, Mg 1.6 08/03 A1c 12.3, glucose 641 Nutritional Hx/Data Height 4 ft 11 in Height (Calculated Centimeters) 149.9 Current Weight (lbs) 100 lb Weight (Calculated Kilograms) 45.4 Weight (Calculated Grams) 13876.2 [place] Body Weight 98 % [place] Body Weight 102 Body Mass Index (BMI) 20.2 Weight Status Approriate GI Symptoms GI Symptoms None Last BM none Difficult in: None Usual diet at home Per pt 3 meals and 1 snack daily, no diet restriction, take DM medicine. Skin Integrity/Comment: intact Estimated Nutritional Goals BEE in Kcals: Using Current wt Calories/Kcals/Kg 25-30 Kcals Calculated 9058-8503 Protein: Using Current wt Protein g/k-1.2 Protein Calculated 46-55 Fluid: ml 7590-4734 Nutritional Problem 1. Problem Problem altered nutrition related lab values Etiology hx of DM, possible imbalanced carbohydrate intake Signs/Symptoms: A1c 12.3, glucose 641 Malnutrition Alert Protein-Calorie Malnutrition N/A Is there a minimum of two criteria No selected? Query Text:Check all the applicable criteria. A minimum of two criteria are recommended for diagnosis of either severe or non-severe malnutrition. Intervention/Recommendation Comments 1. Continue with [facility] diet. Notified RN, RN will talk to MD for diet texture change. 2. Monitor PO intake, wt weekly, labs and skin integrity 3. F/U as moderate risk in 3-5 days, 08/07-08/09 Expected Outcomes/Goals Expected Outcomes/Goals 1. PO intake to meet at least 75% of nutritional needs with tolerance. 2. Wt stability, skin to remain intact, labs to improve
--- NOTE | 2017-08-07 02:02 | Progress Notes ---
DATE: 08/06/2017 Staff was spoken to. The patient is interviewed. Mood is noted to be depressed. Affect is constricted. Insight and judgment at this time are noted to be still impaired. Impulse control seems to be poor. Coping skills are also noted to be poor. The patient has been having a difficult time to cope with the stress. No side effects to the medications are noted. The patient is currently on Lexapro and is able to tolerate it. ASSESSMENT: The patient is still depressed and the patient has no place to return to. PLAN: To continue the patient with the supportive therapy and followup. JOB# [id number]
[2017-08-07] MEDS: INSULIN ASPART SLIDING SCALE 100 UNITS/ML UNIT SUBQ SCH ×6 (06:56→20:56)
[2017-08-07] MEDS: Escitalopram Oxalate 5 mg Tab PO SCH (10:01)
--- NOTE | 2017-08-07 13:27 | Progress Notes ---
DATE: 08/07/2017 Staff has spoken to patient. The patient is interviewed. Mood is depressed. The patient is isolated and withdrawn. The patient is stating that no one is helping. The patient is getting easily frustrated. Coping determined to be very poor. No side effects to the medications are noted. The patient has no place to return to. ASSESSMENT: The patient is still depressed, but is not suicidal today. PLAN: Plan to increase the dose on the Lexapro to 10 mg. Encouraged the patient to verbalize the concerns rather than to act out. JOB# [id number]
--- NOTE | 2017-08-08 00:19 | Progress Notes ---
DATE: 08/07/2017 SUBJECTIVE: The patient was seen in her room, lying on the bed. The patient denies any pain or discomfort at this time, otherwise, appears to be in no acute distress. OBJECTIVE: VITAL SIGNS: Temperature 98, heart rate of 90, blood pressure of 123/72, respirations of 19 and 99% on room air. HEENT: Head is atraumatic and normocephalic. Eyes: Bilateral conjunctivae are clear. Bilateral pupils are equally round and reactive. NECK: Supple. No JVD. CARDIOVASCULAR: S1 and S2 without murmur. PULMONARY: Clear to auscultation. GASTROINTESTINAL: Soft and nontender without guarding. Positive bowel sounds. MUSCULOSKELETAL: No clubbing. No cyanosis noted. ASSESSMENT: 1. Diabetes mellitus. 2. Major depression disorder. PLAN: We will continue current treatment. We will follow up with a psychiatrist to monitor the patient's condition and behavior once the patient is medically cleared. Treatment plans were discussed with the patient's nurse. Treatment plans were discussed with Dr. Saini. JOB# [id number]
[2017-08-08] MEDS: INSULIN ASPART SLIDING SCALE 100 UNITS/ML UNIT SUBQ SCH ×4 (06:41→20:31)
--- NOTE | 2017-08-08 09:09 | General Progress Note ---
Subjective - Review of Systems Events since last encounter: patient in no distress awake alert Objective - Results Result Diagrams: 08/05/17 08:45 08/05/17 08:45 Recent Labs: Laboratory Last Values WBC 6.3 Th/cmm (4.8-10.8) 08/05/17 08:45 RBC 5.07 Mil/cmm (3.80-5.10) 08/05/17 08:45 Hgb 14.9 gm/dL (12-16) 08/05/17 08:45 Hct 46.1 % (41.0-60) D 08/05/17 08:45 MCV 90.8 fl (81-100) 08/05/17 08:45 MCH 29.4 pg (27.0-31.0) 08/05/17 08:45 MCHC Differential 32.4 pg (28.0-36.0) 08/05/17 08:45 RDW 14.1 % (11.5-20.0) 08/05/17 08:45 Plt Count 137 Th/cmm (150-400) L 08/05/17 08:45 MPV 9.5 fl 08/05/17 08:45 Neutrophils % 75.3 % (40.0-80.0) 08/05/17 08:45 Lymphocytes % 19.0 % (20.0-50.0) L 08/05/17 08:45 Monocytes % 4.5 % (2.0-10.0) 08/05/17 08:45 Eosinophils % 1.0 % (0.0-5.0) 08/05/17 08:45 Basophils % 0.2 % (0.0-2.0) 08/05/17 08:45 PT 11.2 SECONDS (9.5-11.5) 08/03/17 12:40 INR 1.08 (0.5-1.4) 08/03/17 12:40 Sodium 132 mEq/L (136-145) L 08/05/17 08:45 Potassium 3.9 mEq/L (3.5-5.1) 08/05/17 08:45 Chloride 101 mEq/L (98-107) 08/05/17 08:45 Carbon Dioxide 23.9 mEq/L (21.0-31.0) 08/05/17 08:45 Anion Gap 11.0 (7.0-16.0) 08/05/17 08:45 BUN 30 mg/dL (7-25) H 08/05/17 08:45 Creatinine 0.7 mg/dL (0.6-1.2) 08/05/17 08:45 Est GFR ( Amer) > 60.0 ml/min (>90) 08/05/17 08:45 Est GFR (Non-Af Amer) > 60.0 ml/min 08/05/17 08:45 BUN/Creatinine Ratio 42.9 08/05/17 08:45 Glucose 325 mg/dL (70-105) H 08/05/17 08:45 POC Glucose 365 MG/DL (70 - 105) H 08/08/17 05:49 Hemoglobin A1c % 12.3 % (4.0-6.0) H 08/03/17 12:40 Calcium 9.4 mg/dL (8.6-10.3) 08/05/17 08:45 Magnesium 1.6 mg/dL (1.9-2.7) L 08/04/17 04:30 Total Bilirubin 1.0 mg/dL (0.3-1.0) 08/03/17 12:40 AST 54 U/L (13-39) H 08/03/17 12:40 ALT 67 U/L (7-52) H 08/03/17 12:40 Alkaline Phosphatase 171 U/L (34-104) H 08/03/17 12:40 Creatine Kinase 55 U/L (30-223) 08/03/17 12:40 Troponin I < 0.01 ng/mL (0.01-0.05) L 08/03/17 12:40 B-Natriuretic Peptide 38.1 pg/mL (5.0-100.0) 08/03/17 12:40 Total Protein 8.2 gm/dL (6.0-8.3) 08/03/17 12:40 Albumin 4.3 gm/dL (3.7-5.3) 08/03/17 12:40 Globulin 3.9 gm/dL 08/03/17 12:40 Albumin/Globulin Ratio 1.1 (1.0-1.8) 08/03/17 12:40 Triglycerides 113 mg/dL (<150) 08/04/17 04:30 Cholesterol 103 mg/dL (<200) 08/04/17 04:30 LDL Cholesterol Direct 85 mg/dL (75-193) 08/04/17 04:30 HDL Cholesterol 26 mg/dL (23-92) 08/04/17 04:30 Amylase 72 U/L (29-103) 08/03/17 12:40 Lipase 97 U/L (11-82) H 08/03/17 12:40 TSH 1.17 uIU/ml (0.34-5.60) 08/04/17 04:30 Serum , Qual NEGATIVE (NEGATIVE) 08/03/17 12:22 Urine Source CLEAN C 08/03/17 20:25 Urine Color YELLOW 08/03/17 20:25 Urine Clarity HAZY (CLEAR) 08/03/17 20:25 Urine pH 5.0 (4.6 - 8.0) 08/03/17 20:25 Ur Specific [place] 1.025 (1.005-1.030) 08/03/17 20:25 Urine Protein 100 mg/dL (NEGATIVE) H 08/03/17 20:25 Urine Glucose (UA) >=1000 mg/dL (NEGATIVE) H 08/03/17 20:25 Urine Ketones NEGATIVE mg/dL (NEGATIVE) 08/03/17 20:25 Urine Blood TRACE (NEGATIVE) 08/03/17 20:25 Urine Nitrate POSITIVE (NEGATIVE) H 08/03/17 20:25 Urine Bilirubin NEGATIVE (NEGATIVE) 08/03/17 20:25 Urine Urobilinogen 0.2 E.U./dL (0.2 - 1.0) 08/03/17 20:25 Ur Leukocyte Esterase NEGATIVE (NEGATIVE) 08/03/17 20:25 Urine RBC 0-2 /hpf (0-5) 08/03/17 20:25 Urine WBC 10-25 /hpf (0-5) H 08/03/17 20:25 Ur Epithelial Cells MODERATE /lpf (FEW) 08/03/17 20:25 Urine Bacteria MANY /hpf (NONE SEEN) 08/03/17 20:25 Urine Opiates Screen NEGATIVE (NEGATIVE) 08/03/17 20:25 Urine Methadone Screen NEGATIVE (NEGATIVE) 08/03/17 20:25 Ur Barbiturates Screen NEGATIVE (NEGATIVE) 08/03/17 20:25 Ur Tricyclics Screen NEGATIVE (NEGATIVE) 08/03/17 20:25 Ur Phencyclidine Scrn NEGATIVE (NEGATIVE) 08/03/17 20:25 Amphetamines Screen NEGATIVE (NEGATIVE) 08/03/17 20:25 U Methamphetamines Scrn NEGATIVE (NEGATIVE) 08/03/17 20:25 U Benzodiazepines Scrn NEGATIVE (NEGATIVE) 08/03/17 20:25 U Cocaine Metab Screen NEGATIVE (NEGATIVE) 08/03/17 20:25 U Cannabinoids Screen NEGATIVE (NEGATIVE) 08/03/17 20:25 Serum Ketones SMALL (NEGATIVE) H 08/03/17 12:40 - Physical Exam Vitals and I&O: Vital Signs Temp 97.8 F 08/08/17 00:00 Pulse 78 08/08/17 00:00 Resp 18 08/08/17 00:00 BP 138/74 08/08/17 00:00 Pulse Ox 99 08/07/17 20:00 Intake & Output 08/07/17 08/08/17 08/08/17 18:59 06:59 18:59 Intake Total 1500 850 Balance 1500 850 Weight (lbs) 59.874 kg 54.885 kg Intake: Oral 1500 850 Other: # Voids 3 3 Active Medications: Current Medications Escitalopram Oxalate (Lexapro) 10 mg PO DAILY [facility] PRN Reason: Protocol Stop: 10/05/17 08:59 Sodium Chloride (Nacl 0.45%) 1,000 mls @ 150 mls/hr IV .Q6H40M [facility] Stop: 10/02/17 17:14 Last Infusion: 08/04/17 22:00 Dose: Infused Insulin Aspart (Novolog Insulin Sliding Scale) 0 units SUBQ ACHS [facility] PRN Reason: Protocol Stop: 10/03/17 07:29 Last Admin: 08/08/17 06:41 Dose: 15 units Lorazepam (Ativan) 1 mg IVP Q6HR PRN; Protocol PRN Reason: Agitation Stop: 10/02/17 17:08 Metformin HCl (Glucophage) 1,000 mg PO BID [facility] Stop: 10/03/17 08:59 Last Admin: 08/07/17 16:46 Dose: 1,000 mg Mupirocin (Bactroban Oint) 1 appl TP BID [facility] Stop: 10/03/17 16:59 Last Admin: 08/07/17 16:47 Dose: 1 appl Zolpidem Tartrate (Ambien) 5 mg PO HS PRN PRN Reason: Insomnia Stop: 10/02/17 18:39 Last Admin: 08/06/17 20:57 Dose: 5 mg General: No acute distress HEENT: Atraumatic Neck: Supple - Procedures Procedures: Procedures Procedure Code Date ELECTROCARDIOGRAM 89.52 05/25/95 INJECT/INFUSE NEC 99.29 12/02/12 NASAL SURGERY PROCEDURE 96068 12/05/01 REMOVE NASAL PACKING 97.32 12/05/01 THER/PROPH/DIAG INJ SC/IM 58597 12/02/12 Assessment/Plan - Problem List Patient Problems: All Active Problems DIZZINESS WITH ELEVATED BLOOD GLUCOSE (Acute) Blood glucose elevated (Acute) R73.9 Diabetes mellitus type 2, uncontrolled, without complications (Acute) E11.65 - Assessment Assessment: Current Active Problems Problem Status Onset DIZZINESS WITH ELEVATED BLOOD GLUCOSE Acute - Plan Plan: cpm Nutritional Asmnt/Malnutr-PDOC - Dietary Evaluation Malnutrition Findings (Please click <Entered> for more info): Nutritional Asmnt/Malnutrition Start: 08/04/17 15: 39 Text: Status: Complete Freq: Document 08/04/17 15:40 [facility] (Rec: 08/04/17 16:02 [facility]-FNS1) Nutritional Asmnt/Malnutrition Patient General Information Nutritional Screening High Risk Consult Diagnosis DKA, uncontrolled DM Pertinent Medical Hx/Surgical Hx DM Subjective Information Consult received for BG>600. Pt seen lying in bed, awake and alert during the time of visit, no teeth noted. Pt complained did not like baby food, stated she is able to chew, ground diet ok. Pt stated like milk shake, eat everything, "don't care blood sugar". Nutrition education attempted, pt wanted RD to get out. Per notes, PO intake 75% . Current Diet Order/ Nutrition Support CCHO 60gm pureed Pertinent Medications Nacl 0.45%, glucopage, novolog Pertinent Labs 08/04 Na 140, K 3.6, Cl 109, BUN 34, Cr 0.7, Glucose 116, POC 90-475, Mg 1.6 08/03 A1c 12.3, glucose 641 Nutritional Hx/Data Height 1.5 m Height (Calculated Centimeters) 149.9 Current Weight (lbs) 45.359 kg Weight (Calculated Kilograms) 45.4 Weight (Calculated Grams) 52375.2 [place] Body Weight 98 % [place] Body Weight 102 Body Mass Index (BMI) 20.2 Weight Status Approriate GI Symptoms GI Symptoms None Last BM none Difficult in: None Usual diet at home Per pt 3 meals and 1 snack daily, no diet restriction, take DM medicine. Skin Integrity/Comment: intact Estimated Nutritional Goals BEE in Kcals: Using Current wt Calories/Kcals/Kg 25-30 Kcals Calculated 7864-9110 Protein: Using Current wt Protein g/k-1.2 Protein Calculated 46-55 Fluid: ml 3194-9597 Nutritional Problem 1. Problem Problem altered nutrition related lab values Etiology hx of DM, possible imbalanced carbohydrate intake Signs/Symptoms: A1c 12.3, glucose 641 Malnutrition Alert Protein-Calorie Malnutrition N/A Is there a minimum of two criteria No selected? Query Text:Check all the applicable criteria. A minimum of two criteria are recommended for diagnosis of either severe or non-severe malnutrition. Intervention/Recommendation Comments 1. Continue with [facility] diet. Notified RN, RN will talk to MD for diet texture change. 2. Monitor PO intake, wt weekly, labs and skin integrity 3. F/U as moderate risk in 3-5 days, 08/07-08/09 Expected Outcomes/Goals Expected Outcomes/Goals 1. PO intake to meet at least 75% of nutritional needs with tolerance. 2. Wt stability, skin to remain intact, labs to improve
[2017-08-08] MEDS: Escitalopram Oxalate 5 mg Tab PO SCH (09:13)
[2017-08-09] MEDS: INSULIN ASPART SLIDING SCALE 100 UNITS/ML UNIT SUBQ SCH ×4 (08:10→22:11)
[2017-08-09] MEDS: Escitalopram Oxalate 5 mg Tab PO SCH (10:03)
--- NOTE | 2017-08-09 10:46 | General Progress Note ---
Subjective - Review of Systems Events since last encounter: no change Objective - Results Result Diagrams: 08/05/17 08:45 08/05/17 08:45 Recent Labs: Laboratory Last Values WBC 6.3 Th/cmm (4.8-10.8) 08/05/17 08:45 RBC 5.07 Mil/cmm (3.80-5.10) 08/05/17 08:45 Hgb 14.9 gm/dL (12-16) 08/05/17 08:45 Hct 46.1 % (41.0-60) D 08/05/17 08:45 MCV 90.8 fl (81-100) 08/05/17 08:45 MCH 29.4 pg (27.0-31.0) 08/05/17 08:45 MCHC Differential 32.4 pg (28.0-36.0) 08/05/17 08:45 RDW 14.1 % (11.5-20.0) 08/05/17 08:45 Plt Count 137 Th/cmm (150-400) L 08/05/17 08:45 MPV 9.5 fl 08/05/17 08:45 Neutrophils % 75.3 % (40.0-80.0) 08/05/17 08:45 Lymphocytes % 19.0 % (20.0-50.0) L 08/05/17 08:45 Monocytes % 4.5 % (2.0-10.0) 08/05/17 08:45 Eosinophils % 1.0 % (0.0-5.0) 08/05/17 08:45 Basophils % 0.2 % (0.0-2.0) 08/05/17 08:45 PT 11.2 SECONDS (9.5-11.5) 08/03/17 12:40 INR 1.08 (0.5-1.4) 08/03/17 12:40 Sodium 132 mEq/L (136-145) L 08/05/17 08:45 Potassium 3.9 mEq/L (3.5-5.1) 08/05/17 08:45 Chloride 101 mEq/L (98-107) 08/05/17 08:45 Carbon Dioxide 23.9 mEq/L (21.0-31.0) 08/05/17 08:45 Anion Gap 11.0 (7.0-16.0) 08/05/17 08:45 BUN 30 mg/dL (7-25) H 08/05/17 08:45 Creatinine 0.7 mg/dL (0.6-1.2) 08/05/17 08:45 Est GFR ( Amer) > 60.0 ml/min (>90) 08/05/17 08:45 Est GFR (Non-Af Amer) > 60.0 ml/min 08/05/17 08:45 BUN/Creatinine Ratio 42.9 08/05/17 08:45 Glucose 325 mg/dL (70-105) H 08/05/17 08:45 POC Glucose 260 MG/DL (70 - 105) H 08/09/17 07:45 Hemoglobin A1c % 12.3 % (4.0-6.0) H 08/03/17 12:40 Calcium 9.4 mg/dL (8.6-10.3) 08/05/17 08:45 Magnesium 1.6 mg/dL (1.9-2.7) L 08/04/17 04:30 Total Bilirubin 1.0 mg/dL (0.3-1.0) 08/03/17 12:40 AST 54 U/L (13-39) H 08/03/17 12:40 ALT 67 U/L (7-52) H 08/03/17 12:40 Alkaline Phosphatase 171 U/L (34-104) H 08/03/17 12:40 Creatine Kinase 55 U/L (30-223) 08/03/17 12:40 Troponin I < 0.01 ng/mL (0.01-0.05) L 08/03/17 12:40 B-Natriuretic Peptide 38.1 pg/mL (5.0-100.0) 08/03/17 12:40 Total Protein 8.2 gm/dL (6.0-8.3) 08/03/17 12:40 Albumin 4.3 gm/dL (3.7-5.3) 08/03/17 12:40 Globulin 3.9 gm/dL 08/03/17 12:40 Albumin/Globulin Ratio 1.1 (1.0-1.8) 08/03/17 12:40 Triglycerides 113 mg/dL (<150) 08/04/17 04:30 Cholesterol 103 mg/dL (<200) 08/04/17 04:30 LDL Cholesterol Direct 85 mg/dL (75-193) 08/04/17 04:30 HDL Cholesterol 26 mg/dL (23-92) 08/04/17 04:30 Amylase 72 U/L (29-103) 08/03/17 12:40 Lipase 97 U/L (11-82) H 08/03/17 12:40 TSH 1.17 uIU/ml (0.34-5.60) 08/04/17 04:30 Serum , Qual NEGATIVE (NEGATIVE) 08/03/17 12:22 Urine Source CLEAN C 08/03/17 20:25 Urine Color YELLOW 08/03/17 20:25 Urine Clarity HAZY (CLEAR) 08/03/17 20:25 Urine pH 5.0 (4.6 - 8.0) 08/03/17 20:25 Ur Specific [place] 1.025 (1.005-1.030) 08/03/17 20:25 Urine Protein 100 mg/dL (NEGATIVE) H 08/03/17 20:25 Urine Glucose (UA) >=1000 mg/dL (NEGATIVE) H 08/03/17 20:25 Urine Ketones NEGATIVE mg/dL (NEGATIVE) 08/03/17 20:25 Urine Blood TRACE (NEGATIVE) 08/03/17 20:25 Urine Nitrate POSITIVE (NEGATIVE) H 08/03/17 20:25 Urine Bilirubin NEGATIVE (NEGATIVE) 08/03/17 20:25 Urine Urobilinogen 0.2 E.U./dL (0.2 - 1.0) 08/03/17 20:25 Ur Leukocyte Esterase NEGATIVE (NEGATIVE) 08/03/17 20:25 Urine RBC 0-2 /hpf (0-5) 08/03/17 20:25 Urine WBC 10-25 /hpf (0-5) H 08/03/17 20:25 Ur Epithelial Cells MODERATE /lpf (FEW) 08/03/17 20:25 Urine Bacteria MANY /hpf (NONE SEEN) 08/03/17 20:25 Urine Opiates Screen NEGATIVE (NEGATIVE) 08/03/17 20:25 Urine Methadone Screen NEGATIVE (NEGATIVE) 08/03/17 20:25 Ur Barbiturates Screen NEGATIVE (NEGATIVE) 08/03/17 20:25 Ur Tricyclics Screen NEGATIVE (NEGATIVE) 08/03/17 20:25 Ur Phencyclidine Scrn NEGATIVE (NEGATIVE) 08/03/17 20:25 Amphetamines Screen NEGATIVE (NEGATIVE) 08/03/17 20:25 U Methamphetamines Scrn NEGATIVE (NEGATIVE) 08/03/17 20:25 U Benzodiazepines Scrn NEGATIVE (NEGATIVE) 08/03/17 20:25 U Cocaine Metab Screen NEGATIVE (NEGATIVE) 08/03/17 20:25 U Cannabinoids Screen NEGATIVE (NEGATIVE) 08/03/17 20:25 Serum Ketones SMALL (NEGATIVE) H 08/03/17 12:40 - Physical Exam Vitals and I&O: Vital Signs Temp 97.5 F 08/09/17 04:00 Pulse 72 08/09/17 04:00 Resp 18 08/09/17 08:00 BP 127/62 08/09/17 04:00 Pulse Ox 98 08/09/17 04:00 Intake & Output 08/08/17 08/09/17 08/09/17 18:59 06:59 18:59 Intake Total 1000 800 Balance 1000 800 Weight (lbs) 54.885 kg 54.703 kg Intake: Oral 1000 800 Other: # Voids 3 2 # Bowel Movements 1 0 Active Medications: Current Medications Escitalopram Oxalate (Lexapro) 10 mg PO DAILY [facility] PRN Reason: Protocol Stop: 10/05/17 08:59 Last Admin: 08/09/17 10:03 Dose: 10 mg Sodium Chloride (Nacl 0.45%) 1,000 mls @ 150 mls/hr IV .Q6H40M [facility] Stop: 10/02/17 17:14 Last Infusion: 08/04/17 22:00 Dose: Infused Insulin Aspart (Novolog Insulin Sliding Scale) 0 units SUBQ ACHS [facility] PRN Reason: Protocol Stop: 10/03/17 07:29 Last Admin: 08/08/17 20:31 Dose: Not Given Lorazepam (Ativan) 1 mg IVP Q6HR PRN; Protocol PRN Reason: Agitation Stop: 10/02/17 17:08 Metformin HCl (Glucophage) 1,000 mg PO BID [facility] Stop: 10/03/17 08:59 Last Admin: 08/09/17 10:02 Dose: 1,000 mg Mupirocin (Bactroban Oint) 1 appl TP BID [facility] Stop: 10/03/17 16:59 Last Admin: 08/09/17 10:03 Dose: 1 appl Zolpidem Tartrate (Ambien) 5 mg PO HS PRN PRN Reason: Insomnia Stop: 10/02/17 18:39 Last Admin: 08/08/17 20:32 Dose: 5 mg General: No acute distress HEENT: Atraumatic Neck: Supple - Procedures Procedures: Procedures Procedure Code Date ELECTROCARDIOGRAM 89.52 05/25/95 INJECT/INFUSE NEC 99.29 12/02/12 NASAL SURGERY PROCEDURE 76835 12/05/01 REMOVE NASAL PACKING 97.32 12/05/01 THER/PROPH/DIAG INJ SC/IM 24980 12/02/12 Assessment/Plan - Problem List Patient Problems: All Active Problems DIZZINESS WITH ELEVATED BLOOD GLUCOSE (Acute) Blood glucose elevated (Acute) R73.9 Diabetes mellitus type 2, uncontrolled, without complications (Acute) E11.65 - Assessment Assessment: Current Active Problems Problem Status Onset DIZZINESS WITH ELEVATED BLOOD GLUCOSE Acute - Plan Plan: cpm Nutritional Asmnt/Malnutr-PDOC - Dietary Evaluation Malnutrition Findings (Please click <Entered> for more info): Nutritional Asmnt/Malnutrition Start: 08/04/17 15: 39 Text: Status: Complete Freq: Document 08/04/17 15:40 LCHENG (Rec: 08/04/17 16:02 [email or web address] [email or web address]) Nutritional Asmnt/Malnutrition Patient General Information Nutritional Screening High Risk Consult Diagnosis DKA, uncontrolled DM Pertinent Medical Hx/Surgical Hx DM Subjective Information Consult received for BG>600. Pt seen lying in bed, awake and alert during the time of visit, no teeth noted. Pt complained did not like baby food, stated she is able to chew, ground diet ok. Pt stated like milk shake, eat everything, "don't care blood sugar". Nutrition education attempted, pt wanted RD to get out. Per notes, PO intake 75% . Current Diet Order/ Nutrition Support CCHO 60gm pureed Pertinent Medications Nacl 0.45%, glucopage, novolog Pertinent Labs 08/04 Na 140, K 3.6, Cl 109, BUN 34, Cr 0.7, Glucose 116, POC 90-475, Mg 1.6 08/03 A1c 12.3, glucose 641 Nutritional Hx/Data Height 1.5 m Height (Calculated Centimeters) 149.9 Current Weight (lbs) 45.359 kg Weight (Calculated Kilograms) 45.4 Weight (Calculated Grams) 32346.2 [place] Body Weight 98 % [place] Body Weight 102 Body Mass Index (BMI) 20.2 Weight Status Approriate GI Symptoms GI Symptoms None Last BM none Difficult in: None Usual diet at home Per pt 3 meals and 1 snack daily, no diet restriction, take DM medicine. Skin Integrity/Comment: intact Estimated Nutritional Goals BEE in Kcals: Using Current wt Calories/Kcals/Kg 25-30 Kcals Calculated 4453-5503 Protein: Using Current wt Protein g/k-1.2 Protein Calculated 46-55 Fluid: ml 7993-2365 Nutritional Problem 1. Problem Problem altered nutrition related lab values Etiology hx of DM, possible imbalanced carbohydrate intake Signs/Symptoms: A1c 12.3, glucose 641 Malnutrition Alert Protein-Calorie Malnutrition N/A Is there a minimum of two criteria No selected? Query Text:Check all the applicable criteria. A minimum of two criteria are recommended for diagnosis of either severe or non-severe malnutrition. Intervention/Recommendation Comments 1. Continue with [facility] diet. Notified RN, RN will talk to MD for diet texture change. 2. Monitor PO intake, wt weekly, labs and skin integrity 3. F/U as moderate risk in 3-5 days, 08/07-08/09 Expected Outcomes/Goals Expected Outcomes/Goals 1. PO intake to meet at least 75% of nutritional needs with tolerance. 2. Wt stability, skin to remain intact, labs to improve
[2017-08-10] MEDS: INSULIN ASPART SLIDING SCALE 100 UNITS/ML UNIT SUBQ SCH ×4 (06:49→21:30)
[2017-08-10] MEDS: Escitalopram Oxalate 5 mg Tab PO SCH (09:12)
--- NOTE | 2017-08-10 12:14 | Internal Medicine Prog Note ---
Internal Medicine Subjective - Subjective Service Date: 08/10/17 Patient seen and examined:: with staff Patient is:: awake Per staff patient has:: no adverse event, tolerating meds Internal Medicine Objective - Results Result Diagrams: 08/05/17 08:45 08/05/17 08:45 Recent Labs: Laboratory Last Values WBC 6.3 Th/cmm (4.8-10.8) 08/05/17 08:45 RBC 5.07 Mil/cmm (3.80-5.10) 08/05/17 08:45 Hgb 14.9 gm/dL (12-16) 08/05/17 08:45 Hct 46.1 % (41.0-60) D 08/05/17 08:45 MCV 90.8 fl (81-100) 08/05/17 08:45 MCH 29.4 pg (27.0-31.0) 08/05/17 08:45 MCHC Differential 32.4 pg (28.0-36.0) 08/05/17 08:45 RDW 14.1 % (11.5-20.0) 08/05/17 08:45 Plt Count 137 Th/cmm (150-400) L 08/05/17 08:45 MPV 9.5 fl 08/05/17 08:45 Neutrophils % 75.3 % (40.0-80.0) 08/05/17 08:45 Lymphocytes % 19.0 % (20.0-50.0) L 08/05/17 08:45 Monocytes % 4.5 % (2.0-10.0) 08/05/17 08:45 Eosinophils % 1.0 % (0.0-5.0) 08/05/17 08:45 Basophils % 0.2 % (0.0-2.0) 08/05/17 08:45 PT 11.2 SECONDS (9.5-11.5) 08/03/17 12:40 INR 1.08 (0.5-1.4) 08/03/17 12:40 Sodium 132 mEq/L (136-145) L 08/05/17 08:45 Potassium 3.9 mEq/L (3.5-5.1) 08/05/17 08:45 Chloride 101 mEq/L (98-107) 08/05/17 08:45 Carbon Dioxide 23.9 mEq/L (21.0-31.0) 08/05/17 08:45 Anion Gap 11.0 (7.0-16.0) 08/05/17 08:45 BUN 30 mg/dL (7-25) H 08/05/17 08:45 Creatinine 0.7 mg/dL (0.6-1.2) 08/05/17 08:45 Est GFR ( Amer) > 60.0 ml/min (>90) 08/05/17 08:45 Est GFR (Non-Af Amer) > 60.0 ml/min 08/05/17 08:45 BUN/Creatinine Ratio 42.9 08/05/17 08:45 Glucose 325 mg/dL (70-105) H 08/05/17 08:45 POC Glucose 256 MG/DL (70 - 105) H 08/10/17 06:41 Hemoglobin A1c % 12.3 % (4.0-6.0) H 08/03/17 12:40 Calcium 9.4 mg/dL (8.6-10.3) 08/05/17 08:45 Magnesium 1.6 mg/dL (1.9-2.7) L 08/04/17 04:30 Total Bilirubin 1.0 mg/dL (0.3-1.0) 08/03/17 12:40 AST 54 U/L (13-39) H 08/03/17 12:40 ALT 67 U/L (7-52) H 08/03/17 12:40 Alkaline Phosphatase 171 U/L (34-104) H 08/03/17 12:40 Creatine Kinase 55 U/L (30-223) 08/03/17 12:40 Troponin I < 0.01 ng/mL (0.01-0.05) L 08/03/17 12:40 B-Natriuretic Peptide 38.1 pg/mL (5.0-100.0) 08/03/17 12:40 Total Protein 8.2 gm/dL (6.0-8.3) 08/03/17 12:40 Albumin 4.3 gm/dL (3.7-5.3) 08/03/17 12:40 Globulin 3.9 gm/dL 08/03/17 12:40 Albumin/Globulin Ratio 1.1 (1.0-1.8) 08/03/17 12:40 Triglycerides 113 mg/dL (<150) 08/04/17 04:30 Cholesterol 103 mg/dL (<200) 08/04/17 04:30 LDL Cholesterol Direct 85 mg/dL (75-193) 08/04/17 04:30 HDL Cholesterol 26 mg/dL (23-92) 08/04/17 04:30 Amylase 72 U/L (29-103) 08/03/17 12:40 Lipase 97 U/L (11-82) H 08/03/17 12:40 TSH 1.17 uIU/ml (0.34-5.60) 08/04/17 04:30 Serum , Qual NEGATIVE (NEGATIVE) 08/03/17 12:22 Urine Source CLEAN C 08/03/17 20:25 Urine Color YELLOW 08/03/17 20:25 Urine Clarity HAZY (CLEAR) 08/03/17 20:25 Urine pH 5.0 (4.6 - 8.0) 08/03/17 20:25 Ur Specific [place] 1.025 (1.005-1.030) 08/03/17 20:25 Urine Protein 100 mg/dL (NEGATIVE) H 08/03/17 20:25 Urine Glucose (UA) >=1000 mg/dL (NEGATIVE) H 08/03/17 20:25 Urine Ketones NEGATIVE mg/dL (NEGATIVE) 08/03/17 20:25 Urine Blood TRACE (NEGATIVE) 08/03/17 20:25 Urine Nitrate POSITIVE (NEGATIVE) H 08/03/17 20:25 Urine Bilirubin NEGATIVE (NEGATIVE) 08/03/17 20:25 Urine Urobilinogen 0.2 E.U./dL (0.2 - 1.0) 08/03/17 20:25 Ur Leukocyte Esterase NEGATIVE (NEGATIVE) 08/03/17 20:25 Urine RBC 0-2 /hpf (0-5) 08/03/17 20:25 Urine WBC 10-25 /hpf (0-5) H 08/03/17 20:25 Ur Epithelial Cells MODERATE /lpf (FEW) 08/03/17 20:25 Urine Bacteria MANY /hpf (NONE SEEN) 08/03/17 20:25 Urine Opiates Screen NEGATIVE (NEGATIVE) 08/03/17 20:25 Urine Methadone Screen NEGATIVE (NEGATIVE) 08/03/17 20:25 Ur Barbiturates Screen NEGATIVE (NEGATIVE) 08/03/17 20:25 Ur Tricyclics Screen NEGATIVE (NEGATIVE) 08/03/17 20:25 Ur Phencyclidine Scrn NEGATIVE (NEGATIVE) 08/03/17 20:25 Amphetamines Screen NEGATIVE (NEGATIVE) 08/03/17 20:25 U Methamphetamines Scrn NEGATIVE (NEGATIVE) 08/03/17 20:25 U Benzodiazepines Scrn NEGATIVE (NEGATIVE) 08/03/17 20:25 U Cocaine Metab Screen NEGATIVE (NEGATIVE) 08/03/17 20:25 U Cannabinoids Screen NEGATIVE (NEGATIVE) 08/03/17 20:25 Serum Ketones SMALL (NEGATIVE) H 08/03/17 12:40 - Physical Exam Vitals and I&O: Vital Signs Temp 98.1 F 08/10/17 00:00 Pulse 83 08/10/17 00:00 Resp 17 08/10/17 04:00 BP 112/68 08/10/17 00:00 Pulse Ox 100 08/10/17 00:00 Intake & Output 08/09/17 08/10/17 08/10/17 18:59 06:59 18:59 Intake Total 900 50 Balance 900 50 Weight (lbs) 120 lb 9.6 oz 116 lb 4 oz Intake: Oral 900 50 Other: # Voids 3 2 # Bowel Movements 1 Active Medications: Current Medications Escitalopram Oxalate (Lexapro) 10 mg PO DAILY [facility] PRN Reason: Protocol Stop: 10/05/17 08:59 Last Admin: 08/10/17 09:12 Dose: 10 mg Sodium Chloride (Nacl 0.45%) 1,000 mls @ 150 mls/hr IV .Q6H40M [facility] Stop: 10/02/17 17:14 Last Infusion: 08/04/17 22:00 Dose: Infused Insulin Aspart (Novolog Insulin Sliding Scale) 0 units SUBQ ACHS [facility] PRN Reason: Protocol Stop: 10/03/17 07:29 Last Admin: 08/10/17 06:49 Dose: 10 units Lorazepam (Ativan) 1 mg IVP Q6HR PRN; Protocol PRN Reason: Agitation Stop: 10/02/17 17:08 Metformin HCl (Glucophage) 1,000 mg PO BID [facility] Stop: 10/03/17 08:59 Last Admin: 08/10/17 09:13 Dose: 1,000 mg Mupirocin (Bactroban Oint) 1 appl TP BID [facility] Stop: 10/03/17 16:59 Last Admin: 08/10/17 09:42 Dose: 1 appl Zolpidem Tartrate (Ambien) 5 mg PO HS PRN PRN Reason: Insomnia Stop: 10/02/17 18:39 Last Admin: 08/08/17 20:32 Dose: 5 mg HEENT: NC/AT, PERRLA Neck: Supple Lungs: CTAB Abdomen: positive bowel sound Neurological: alert - Procedures Procedures: Procedures Procedure Code Date ELECTROCARDIOGRAM 89.52 05/25/95 INJECT/INFUSE NEC 99.29 12/02/12 NASAL SURGERY PROCEDURE 32056 12/05/01 REMOVE NASAL PACKING 97.32 12/05/01 THER/PROPH/DIAG INJ SC/IM 47548 12/02/12 Internal Medicine Assmt/Plan - Assessment Assessment: DIZZINESS WITH ELEVATED BLOOD GLUCOSE (Acute) Blood glucose elevated (Acute) R73.9 Diabetes mellitus type 2, uncontrolled, without complications (Acute) E11.65 - Plan Plan: follow up labs in am empiric ivabx monitor glucose cpm Nutritional Asmnt/Malnutr-PDOC - Dietary Evaluation Malnutrition Findings (Please click <Entered> for more info): Nutritional Asmnt/Malnutrition Start: 08/04/17 15: 39 Text: Status: Complete Freq: Document 08/04/17 15:40 LCHENG (Rec: 08/04/17 16:02 LCHENG [email or web address]) Nutritional Asmnt/Malnutrition Patient General Information Nutritional Screening High Risk Consult Diagnosis DKA, uncontrolled DM Pertinent Medical Hx/Surgical Hx DM Subjective Information Consult received for BG>600. Pt seen lying in bed, awake and alert during the time of visit, no teeth noted. Pt complained did not like baby food, stated she is able to chew, ground diet ok. Pt stated like milk shake, eat everything, "don't care blood sugar". Nutrition education attempted, pt wanted RD to get out. Per notes, PO intake 75% . Current Diet Order/ Nutrition Support CCHO 60gm pureed Pertinent Medications Nacl 0.45%, glucopage, novolog Pertinent Labs 08/04 Na 140, K 3.6, Cl 109, BUN 34, Cr 0.7, Glucose 116, POC 90-475, Mg 1.6 08/03 A1c 12.3, glucose 641 Nutritional Hx/Data Height 4 ft 11 in Height (Calculated Centimeters) 149.9 Current Weight (lbs) 100 lb Weight (Calculated Kilograms) 45.4 Weight (Calculated Grams) 74358.2 [place] Body Weight 98 % [place] Body Weight 102 Body Mass Index (BMI) 20.2 Weight Status Approriate GI Symptoms GI Symptoms None Last BM none Difficult in: None Usual diet at home Per pt 3 meals and 1 snack daily, no diet restriction, take DM medicine. Skin Integrity/Comment: intact Estimated Nutritional Goals BEE in Kcals: Using Current wt Calories/Kcals/Kg 25-30 Kcals Calculated 1304-6480 Protein: Using Current wt Protein g/k-1.2 Protein Calculated 46-55 Fluid: ml 4172-6624 Nutritional Problem 1. Problem Problem altered nutrition related lab values Etiology hx of DM, possible imbalanced carbohydrate intake Signs/Symptoms: A1c 12.3, glucose 641 Malnutrition Alert Protein-Calorie Malnutrition N/A Is there a minimum of two criteria No selected? Query Text:Check all the applicable criteria. A minimum of two criteria are recommended for diagnosis of either severe or non-severe malnutrition. Intervention/Recommendation Comments 1. Continue with [facility] diet. Notified RN, RN will talk to MD for diet texture change. 2. Monitor PO intake, wt weekly, labs and skin integrity 3. F/U as moderate risk in 3-5 days, 08/07-08/09 Expected Outcomes/Goals Expected Outcomes/Goals 1. PO intake to meet at least 75% of nutritional needs with tolerance. 2. Wt stability, skin to remain intact, labs to improve
[2017-08-11] MEDS: INSULIN ASPART SLIDING SCALE 100 UNITS/ML UNIT SUBQ SCH ×4 (06:54→21:28)
[2017-08-11] MEDS: Escitalopram Oxalate 5 mg Tab PO SCH (09:33)
--- NOTE | 2017-08-11 15:02 | General Progress Note ---
Subjective - Review of Systems Events since last encounter: no distress no change Objective - Results Result Diagrams: 08/05/17 08:45 08/05/17 08:45 Recent Labs: Laboratory Last Values WBC 6.3 Th/cmm (4.8-10.8) 08/05/17 08:45 RBC 5.07 Mil/cmm (3.80-5.10) 08/05/17 08:45 Hgb 14.9 gm/dL (12-16) 08/05/17 08:45 Hct 46.1 % (41.0-60) D 08/05/17 08:45 MCV 90.8 fl (81-100) 08/05/17 08:45 MCH 29.4 pg (27.0-31.0) 08/05/17 08:45 MCHC Differential 32.4 pg (28.0-36.0) 08/05/17 08:45 RDW 14.1 % (11.5-20.0) 08/05/17 08:45 Plt Count 137 Th/cmm (150-400) L 08/05/17 08:45 MPV 9.5 fl 08/05/17 08:45 Neutrophils % 75.3 % (40.0-80.0) 08/05/17 08:45 Lymphocytes % 19.0 % (20.0-50.0) L 08/05/17 08:45 Monocytes % 4.5 % (2.0-10.0) 08/05/17 08:45 Eosinophils % 1.0 % (0.0-5.0) 08/05/17 08:45 Basophils % 0.2 % (0.0-2.0) 08/05/17 08:45 PT 11.2 SECONDS (9.5-11.5) 08/03/17 12:40 INR 1.08 (0.5-1.4) 08/03/17 12:40 Sodium 132 mEq/L (136-145) L 08/05/17 08:45 Potassium 3.9 mEq/L (3.5-5.1) 08/05/17 08:45 Chloride 101 mEq/L (98-107) 08/05/17 08:45 Carbon Dioxide 23.9 mEq/L (21.0-31.0) 08/05/17 08:45 Anion Gap 11.0 (7.0-16.0) 08/05/17 08:45 BUN 30 mg/dL (7-25) H 08/05/17 08:45 Creatinine 0.7 mg/dL (0.6-1.2) 08/05/17 08:45 Est GFR ( Amer) > 60.0 ml/min (>90) 08/05/17 08:45 Est GFR (Non-Af Amer) > 60.0 ml/min 08/05/17 08:45 BUN/Creatinine Ratio 42.9 08/05/17 08:45 Glucose 325 mg/dL (70-105) H 08/05/17 08:45 POC Glucose 254 MG/DL (70 - 105) H 08/11/17 06:16 Hemoglobin A1c % 12.3 % (4.0-6.0) H 08/03/17 12:40 Calcium 9.4 mg/dL (8.6-10.3) 08/05/17 08:45 Magnesium 1.6 mg/dL (1.9-2.7) L 08/04/17 04:30 Total Bilirubin 1.0 mg/dL (0.3-1.0) 08/03/17 12:40 AST 54 U/L (13-39) H 08/03/17 12:40 ALT 67 U/L (7-52) H 08/03/17 12:40 Alkaline Phosphatase 171 U/L (34-104) H 08/03/17 12:40 Creatine Kinase 55 U/L (30-223) 08/03/17 12:40 Troponin I < 0.01 ng/mL (0.01-0.05) L 08/03/17 12:40 B-Natriuretic Peptide 38.1 pg/mL (5.0-100.0) 08/03/17 12:40 Total Protein 8.2 gm/dL (6.0-8.3) 08/03/17 12:40 Albumin 4.3 gm/dL (3.7-5.3) 08/03/17 12:40 Globulin 3.9 gm/dL 08/03/17 12:40 Albumin/Globulin Ratio 1.1 (1.0-1.8) 08/03/17 12:40 Triglycerides 113 mg/dL (<150) 08/04/17 04:30 Cholesterol 103 mg/dL (<200) 08/04/17 04:30 LDL Cholesterol Direct 85 mg/dL (75-193) 08/04/17 04:30 HDL Cholesterol 26 mg/dL (23-92) 08/04/17 04:30 Amylase 72 U/L (29-103) 08/03/17 12:40 Lipase 97 U/L (11-82) H 08/03/17 12:40 TSH 1.17 uIU/ml (0.34-5.60) 08/04/17 04:30 Serum , Qual NEGATIVE (NEGATIVE) 08/03/17 12:22 Urine Source CLEAN C 08/03/17 20:25 Urine Color YELLOW 08/03/17 20:25 Urine Clarity HAZY (CLEAR) 08/03/17 20:25 Urine pH 5.0 (4.6 - 8.0) 08/03/17 20:25 Ur Specific [place] 1.025 (1.005-1.030) 08/03/17 20:25 Urine Protein 100 mg/dL (NEGATIVE) H 08/03/17 20:25 Urine Glucose (UA) >=1000 mg/dL (NEGATIVE) H 08/03/17 20:25 Urine Ketones NEGATIVE mg/dL (NEGATIVE) 08/03/17 20:25 Urine Blood TRACE (NEGATIVE) 08/03/17 20:25 Urine Nitrate POSITIVE (NEGATIVE) H 08/03/17 20:25 Urine Bilirubin NEGATIVE (NEGATIVE) 08/03/17 20:25 Urine Urobilinogen 0.2 E.U./dL (0.2 - 1.0) 08/03/17 20:25 Ur Leukocyte Esterase NEGATIVE (NEGATIVE) 08/03/17 20:25 Urine RBC 0-2 /hpf (0-5) 08/03/17 20:25 Urine WBC 10-25 /hpf (0-5) H 08/03/17 20:25 Ur Epithelial Cells MODERATE /lpf (FEW) 08/03/17 20:25 Urine Bacteria MANY /hpf (NONE SEEN) 08/03/17 20:25 Urine Opiates Screen NEGATIVE (NEGATIVE) 08/03/17 20:25 Urine Methadone Screen NEGATIVE (NEGATIVE) 08/03/17 20:25 Ur Barbiturates Screen NEGATIVE (NEGATIVE) 08/03/17 20:25 Ur Tricyclics Screen NEGATIVE (NEGATIVE) 08/03/17 20:25 Ur Phencyclidine Scrn NEGATIVE (NEGATIVE) 08/03/17 20:25 Amphetamines Screen NEGATIVE (NEGATIVE) 08/03/17 20:25 U Methamphetamines Scrn NEGATIVE (NEGATIVE) 08/03/17 20:25 U Benzodiazepines Scrn NEGATIVE (NEGATIVE) 08/03/17 20:25 U Cocaine Metab Screen NEGATIVE (NEGATIVE) 08/03/17 20:25 U Cannabinoids Screen NEGATIVE (NEGATIVE) 08/03/17 20:25 Serum Ketones SMALL (NEGATIVE) H 08/03/17 12:40 - Physical Exam Vitals and I&O: Vital Signs Temp 98.3 F 08/10/17 20:00 Pulse 87 08/11/17 00:00 Resp 20 08/11/17 00:00 BP 124/99 08/11/17 00:00 Pulse Ox 98 08/11/17 00:00 Intake & Output 08/10/17 08/11/17 08/11/17 18:59 06:59 18:59 Intake Total 1020 300 Balance 1020 300 Weight (lbs) 52.617 kg 52.617 kg 52.617 kg Intake: Oral 1020 300 Other: # Voids 3 # Bowel Movements 0 Active Medications: Current Medications Escitalopram Oxalate (Lexapro) 10 mg PO DAILY [facility] PRN Reason: Protocol Stop: 10/05/17 08:59 Last Admin: 08/11/17 09:33 Dose: 10 mg Sodium Chloride (Nacl 0.45%) 1,000 mls @ 150 mls/hr IV .Q6H40M [facility] Stop: 10/02/17 17:14 Last Infusion: 08/04/17 22:00 Dose: Infused Insulin Aspart (Novolog Insulin Sliding Scale) 0 units SUBQ ACHS [facility] PRN Reason: Protocol Stop: 10/03/17 07:29 Last Admin: 08/11/17 12:08 Dose: Not Given Lorazepam (Ativan) 1 mg IVP Q6HR PRN; Protocol PRN Reason: Agitation Stop: 10/02/17 17:08 Metformin HCl (Glucophage) 1,000 mg PO BID [facility] Stop: 10/03/17 08:59 Last Admin: 08/11/17 09:33 Dose: 1,000 mg Mupirocin (Bactroban Oint) 1 appl TP BID [facility] Stop: 10/03/17 16:59 Last Admin: 08/11/17 09:33 Dose: 1 appl Zolpidem Tartrate (Ambien) 5 mg PO HS PRN PRN Reason: Insomnia Stop: 10/02/17 18:39 Last Admin: 08/08/17 20:32 Dose: 5 mg General: No acute distress HEENT: Atraumatic Neck: Supple - Procedures Procedures: Procedures Procedure Code Date ELECTROCARDIOGRAM 89.52 05/25/95 INJECT/INFUSE NEC 99.29 12/02/12 NASAL SURGERY PROCEDURE 57677 12/05/01 REMOVE NASAL PACKING 97.32 12/05/01 THER/PROPH/DIAG INJ SC/IM 75509 12/02/12 Assessment/Plan - Problem List Patient Problems: All Active Problems DIZZINESS WITH ELEVATED BLOOD GLUCOSE (Acute) Blood glucose elevated (Acute) R73.9 Diabetes mellitus type 2, uncontrolled, without complications (Acute) E11.65 - Assessment Assessment: Current Active Problems Problem Status Onset DIZZINESS WITH ELEVATED BLOOD GLUCOSE Acute - Plan Plan: cpm Nutritional Asmnt/Malnutr-PDOC - Dietary Evaluation Malnutrition Findings (Please click <Entered> for more info): Nutritional Asmnt/Malnutrition Start: 08/04/17 15: 39 Text: Status: Complete Freq: Document 08/04/17 15:40 MARCOG (Rec: 08/04/17 16:02 MONA [email or web address]) Nutritional Asmnt/Malnutrition Patient General Information Nutritional Screening High Risk Consult Diagnosis DKA, uncontrolled DM Pertinent Medical Hx/Surgical Hx DM Subjective Information Consult received for BG>600. Pt seen lying in bed, awake and alert during the time of visit, no teeth noted. Pt complained did not like baby food, stated she is able to chew, ground diet ok. Pt stated like milk shake, eat everything, "don't care blood sugar". Nutrition education attempted, pt wanted RD to get out. Per notes, PO intake 75% . Current Diet Order/ Nutrition Support CCHO 60gm pureed Pertinent Medications Nacl 0.45%, glucopage, novolog Pertinent Labs 08/04 Na 140, K 3.6, Cl 109, BUN 34, Cr 0.7, Glucose 116, POC 90-475, Mg 1.6 08/03 A1c 12.3, glucose 641 Nutritional Hx/Data Height 1.5 m Height (Calculated Centimeters) 149.9 Current Weight (lbs) 45.359 kg Weight (Calculated Kilograms) 45.4 Weight (Calculated Grams) 56660.2 [place] Body Weight 98 % [place] Body Weight 102 Body Mass Index (BMI) 20.2 Weight Status Approriate GI Symptoms GI Symptoms None Last BM none Difficult in: None Usual diet at home Per pt 3 meals and 1 snack daily, no diet restriction, take DM medicine. Skin Integrity/Comment: intact Estimated Nutritional Goals BEE in Kcals: Using Current wt Calories/Kcals/Kg 25-30 Kcals Calculated 4016-7772 Protein: Using Current wt Protein g/k-1.2 Protein Calculated 46-55 Fluid: ml 7129-9501 Nutritional Problem 1. Problem Problem altered nutrition related lab values Etiology hx of DM, possible imbalanced carbohydrate intake Signs/Symptoms: A1c 12.3, glucose 641 Malnutrition Alert Protein-Calorie Malnutrition N/A Is there a minimum of two criteria No selected? Query Text:Check all the applicable criteria. A minimum of two criteria are recommended for diagnosis of either severe or non-severe malnutrition. Intervention/Recommendation Comments 1. Continue with [facility] diet. Notified RN, RN will talk to MD for diet texture change. 2. Monitor PO intake, wt weekly, labs and skin integrity 3. F/U as moderate risk in 3-5 days, 08/07-08/09 Expected Outcomes/Goals Expected Outcomes/Goals 1. PO intake to meet at least 75% of nutritional needs with tolerance. 2. Wt stability, skin to remain intact, labs to improve
[2017-08-12] MEDS: Escitalopram Oxalate 5 mg Tab PO SCH (09:11)
[2017-08-12] MEDS: INSULIN ASPART SLIDING SCALE 100 UNITS/ML UNIT SUBQ SCH ×4 (12:07→23:22)
--- NOTE | 2017-08-12 21:31 | Internal Medicine Prog Note ---
Internal Medicine Subjective - Subjective Service Date: 08/12/17 Patient is:: awake Per staff patient has:: no adverse event, tolerating meds Internal Medicine Objective - Results Result Diagrams: 08/05/17 08:45 08/05/17 08:45 Recent Labs: Laboratory Last Values WBC 6.3 Th/cmm (4.8-10.8) 08/05/17 08:45 RBC 5.07 Mil/cmm (3.80-5.10) 08/05/17 08:45 Hgb 14.9 gm/dL (12-16) 08/05/17 08:45 Hct 46.1 % (41.0-60) D 08/05/17 08:45 MCV 90.8 fl (81-100) 08/05/17 08:45 MCH 29.4 pg (27.0-31.0) 08/05/17 08:45 MCHC Differential 32.4 pg (28.0-36.0) 08/05/17 08:45 RDW 14.1 % (11.5-20.0) 08/05/17 08:45 Plt Count 137 Th/cmm (150-400) L 08/05/17 08:45 MPV 9.5 fl 08/05/17 08:45 Neutrophils % 75.3 % (40.0-80.0) 08/05/17 08:45 Lymphocytes % 19.0 % (20.0-50.0) L 08/05/17 08:45 Monocytes % 4.5 % (2.0-10.0) 08/05/17 08:45 Eosinophils % 1.0 % (0.0-5.0) 08/05/17 08:45 Basophils % 0.2 % (0.0-2.0) 08/05/17 08:45 PT 11.2 SECONDS (9.5-11.5) 08/03/17 12:40 INR 1.08 (0.5-1.4) 08/03/17 12:40 Sodium 132 mEq/L (136-145) L 08/05/17 08:45 Potassium 3.9 mEq/L (3.5-5.1) 08/05/17 08:45 Chloride 101 mEq/L (98-107) 08/05/17 08:45 Carbon Dioxide 23.9 mEq/L (21.0-31.0) 08/05/17 08:45 Anion Gap 11.0 (7.0-16.0) 08/05/17 08:45 BUN 30 mg/dL (7-25) H 08/05/17 08:45 Creatinine 0.7 mg/dL (0.6-1.2) 08/05/17 08:45 Est GFR ( Amer) > 60.0 ml/min (>90) 08/05/17 08:45 Est GFR (Non-Af Amer) > 60.0 ml/min 08/05/17 08:45 BUN/Creatinine Ratio 42.9 08/05/17 08:45 Glucose 325 mg/dL (70-105) H 08/05/17 08:45 POC Glucose 351 MG/DL (70 - 105) H 08/11/17 21:27 Hemoglobin A1c % 12.3 % (4.0-6.0) H 08/03/17 12:40 Calcium 9.4 mg/dL (8.6-10.3) 08/05/17 08:45 Magnesium 1.6 mg/dL (1.9-2.7) L 08/04/17 04:30 Total Bilirubin 1.0 mg/dL (0.3-1.0) 08/03/17 12:40 AST 54 U/L (13-39) H 08/03/17 12:40 ALT 67 U/L (7-52) H 08/03/17 12:40 Alkaline Phosphatase 171 U/L (34-104) H 08/03/17 12:40 Creatine Kinase 55 U/L (30-223) 08/03/17 12:40 Troponin I < 0.01 ng/mL (0.01-0.05) L 08/03/17 12:40 B-Natriuretic Peptide 38.1 pg/mL (5.0-100.0) 08/03/17 12:40 Total Protein 8.2 gm/dL (6.0-8.3) 08/03/17 12:40 Albumin 4.3 gm/dL (3.7-5.3) 08/03/17 12:40 Globulin 3.9 gm/dL 08/03/17 12:40 Albumin/Globulin Ratio 1.1 (1.0-1.8) 08/03/17 12:40 Triglycerides 113 mg/dL (<150) 08/04/17 04:30 Cholesterol 103 mg/dL (<200) 08/04/17 04:30 LDL Cholesterol Direct 85 mg/dL (75-193) 08/04/17 04:30 HDL Cholesterol 26 mg/dL (23-92) 08/04/17 04:30 Amylase 72 U/L (29-103) 08/03/17 12:40 Lipase 97 U/L (11-82) H 08/03/17 12:40 TSH 1.17 uIU/ml (0.34-5.60) 08/04/17 04:30 Serum , Qual NEGATIVE (NEGATIVE) 08/03/17 12:22 Urine Source CLEAN C 08/03/17 20:25 Urine Color YELLOW 08/03/17 20:25 Urine Clarity HAZY (CLEAR) 08/03/17 20:25 Urine pH 5.0 (4.6 - 8.0) 08/03/17 20:25 Ur Specific [place] 1.025 (1.005-1.030) 08/03/17 20:25 Urine Protein 100 mg/dL (NEGATIVE) H 08/03/17 20:25 Urine Glucose (UA) >=1000 mg/dL (NEGATIVE) H 08/03/17 20:25 Urine Ketones NEGATIVE mg/dL (NEGATIVE) 08/03/17 20:25 Urine Blood TRACE (NEGATIVE) 08/03/17 20:25 Urine Nitrate POSITIVE (NEGATIVE) H 08/03/17 20:25 Urine Bilirubin NEGATIVE (NEGATIVE) 08/03/17 20:25 Urine Urobilinogen 0.2 E.U./dL (0.2 - 1.0) 08/03/17 20:25 Ur Leukocyte Esterase NEGATIVE (NEGATIVE) 08/03/17 20:25 Urine RBC 0-2 /hpf (0-5) 08/03/17 20:25 Urine WBC 10-25 /hpf (0-5) H 08/03/17 20:25 Ur Epithelial Cells MODERATE /lpf (FEW) 08/03/17 20:25 Urine Bacteria MANY /hpf (NONE SEEN) 08/03/17 20:25 Urine Opiates Screen NEGATIVE (NEGATIVE) 08/03/17 20:25 Urine Methadone Screen NEGATIVE (NEGATIVE) 08/03/17 20:25 Ur Barbiturates Screen NEGATIVE (NEGATIVE) 08/03/17 20:25 Ur Tricyclics Screen NEGATIVE (NEGATIVE) 08/03/17 20:25 Ur Phencyclidine Scrn NEGATIVE (NEGATIVE) 08/03/17 20:25 Amphetamines Screen NEGATIVE (NEGATIVE) 08/03/17 20:25 U Methamphetamines Scrn NEGATIVE (NEGATIVE) 08/03/17 20:25 U Benzodiazepines Scrn NEGATIVE (NEGATIVE) 08/03/17 20:25 U Cocaine Metab Screen NEGATIVE (NEGATIVE) 08/03/17 20:25 U Cannabinoids Screen NEGATIVE (NEGATIVE) 08/03/17 20:25 Serum Ketones SMALL (NEGATIVE) H 08/03/17 12:40 - Physical Exam Vitals and I&O: Vital Signs Temp 98.3 F 08/12/17 20:00 Pulse 82 08/12/17 20:00 Resp 18 08/12/17 20:00 BP 133/59 08/12/17 20:00 Pulse Ox 96 08/12/17 20:00 Intake & Output 08/12/17 08/12/17 08/13/17 06:59 18:59 06:59 Intake Total 740 480 Output Total 0 Balance 740 480 Weight (lbs) 116 lb 116 lb Intake: Oral 740 480 Output: Stool 0 Other: # Voids 3 1 # Bowel Movements 0 Active Medications: Current Medications Escitalopram Oxalate (Lexapro) 10 mg PO DAILY [facility] PRN Reason: Protocol Stop: 10/05/17 08:59 Last Admin: 08/12/17 09:11 Dose: 10 mg Sodium Chloride (Nacl 0.45%) 1,000 mls @ 150 mls/hr IV .Q6H40M [facility] Stop: 10/02/17 17:14 Last Infusion: 08/04/17 22:00 Dose: Infused Insulin Aspart (Novolog Insulin Sliding Scale) 0 units SUBQ ACHS [facility] PRN Reason: Protocol Stop: 10/03/17 07:29 Last Admin: 08/12/17 18:11 Dose: Not Given Lorazepam (Ativan) 1 mg IVP Q6HR PRN; Protocol PRN Reason: Agitation Stop: 10/02/17 17:08 Metformin HCl (Glucophage) 1,000 mg PO BID [facility] Stop: 10/03/17 08:59 Last Admin: 08/12/17 18:15 Dose: 1,000 mg Mupirocin (Bactroban Oint) 1 appl TP BID [facility] Stop: 10/03/17 16:59 Last Admin: 08/12/17 18:12 Dose: Not Given Zolpidem Tartrate (Ambien) 5 mg PO HS PRN PRN Reason: Insomnia Stop: 10/02/17 18:39 Last Admin: 08/08/17 20:32 Dose: 5 mg HEENT: NC/AT, PERRLA Neck: Supple Lungs: CTAB Abdomen: positive bowel sound Neurological: alert - Procedures Procedures: Procedures Procedure Code Date ELECTROCARDIOGRAM 89.52 05/25/95 INJECT/INFUSE NEC 99.29 12/02/12 NASAL SURGERY PROCEDURE 53378 12/05/01 REMOVE NASAL PACKING 97.32 12/05/01 THER/PROPH/DIAG INJ SC/IM 55311 12/02/12 Internal Medicine Assmt/Plan - Assessment Assessment: DIZZINESS WITH ELEVATED BLOOD GLUCOSE (Acute) Blood glucose elevated (Acute) R73.9 Diabetes mellitus type 2, uncontrolled, without complications (Acute) E11.65 - Plan Plan: follow up labs in am empiric ivabx monitor glucose cpm Nutritional Asmnt/Malnutr-PDOC - Dietary Evaluation Malnutrition Findings (Please click <Entered> for more info): Nutritional Asmnt/Malnutrition Start: 08/04/17 15: 39 Text: Status: Complete Freq: Document 08/04/17 15:40 LCHENG (Rec: 08/04/17 16:02 [email or web address] Nutritional Asmnt/Malnutrition Patient General Information Nutritional Screening High Risk Consult Diagnosis DKA, uncontrolled DM Pertinent Medical Hx/Surgical Hx DM Subjective Information Consult received for BG>600. Pt seen lying in bed, awake and alert during the time of visit, no teeth noted. Pt complained did not like baby food, stated she is able to chew, ground diet ok. Pt stated like milk shake, eat everything, "don't care blood sugar". Nutrition education attempted, pt wanted RD to get out. Per notes, PO intake 75% . Current Diet Order/ Nutrition Support CCHO 60gm pureed Pertinent Medications Nacl 0.45%, glucopage, novolog Pertinent Labs 08/04 Na 140, K 3.6, Cl 109, BUN 34, Cr 0.7, Glucose 116, POC 90-475, Mg 1.6 08/03 A1c 12.3, glucose 641 Nutritional Hx/Data Height 4 ft 11 in Height (Calculated Centimeters) 149.9 Current Weight (lbs) 100 lb Weight (Calculated Kilograms) 45.4 Weight (Calculated Grams) 93762.2 [place] Body Weight 98 % [place] Body Weight 102 Body Mass Index (BMI) 20.2 Weight Status Approriate GI Symptoms GI Symptoms None Last BM none Difficult in: None Usual diet at home Per pt 3 meals and 1 snack daily, no diet restriction, take DM medicine. Skin Integrity/Comment: intact Estimated Nutritional Goals BEE in Kcals: Using Current wt Calories/Kcals/Kg 25-30 Kcals Calculated 6333-6841 Protein: Using Current wt Protein g/k-1.2 Protein Calculated 46-55 Fluid: ml 4248-6954 Nutritional Problem 1. Problem Problem altered nutrition related lab values Etiology hx of DM, possible imbalanced carbohydrate intake Signs/Symptoms: A1c 12.3, glucose 641 Malnutrition Alert Protein-Calorie Malnutrition N/A Is there a minimum of two criteria No selected? Query Text:Check all the applicable criteria. A minimum of two criteria are recommended for diagnosis of either severe or non-severe malnutrition. Intervention/Recommendation Comments 1. Continue with [facility] diet. Notified RN, RN will talk to MD for diet texture change. 2. Monitor PO intake, wt weekly, labs and skin integrity 3. F/U as moderate risk in 3-5 days, 08/07-08/09 Expected Outcomes/Goals Expected Outcomes/Goals 1. PO intake to meet at least 75% of nutritional needs with tolerance. 2. Wt stability, skin to remain intact, labs to improve
[2017-08-13] MEDS: INSULIN ASPART SLIDING SCALE 100 UNITS/ML UNIT SUBQ SCH ×4 (06:30→20:32)
[2017-08-13] MEDS: Escitalopram Oxalate 5 mg Tab PO SCH (08:50)
[2017-08-14] MEDS: INSULIN ASPART SLIDING SCALE 100 UNITS/ML UNIT SUBQ SCH ×4 (06:44→21:51)
[2017-08-14] MEDS: Escitalopram Oxalate 5 mg Tab PO SCH (10:53)
[2017-08-15] MEDS: INSULIN ASPART SLIDING SCALE 100 UNITS/ML UNIT SUBQ SCH ×4 (07:01→20:10)
[2017-08-15] MEDS: Escitalopram Oxalate 5 mg Tab PO SCH (09:06)
[2017-08-15] MEDS ORDERED: Probiotic Screen MC PRN (10:30)
--- NOTE | 2017-08-15 12:49 | General Progress Note ---
Subjective - Review of Systems Events since last encounter: no distress Objective - Results Result Diagrams: 08/05/17 08:45 08/05/17 08:45 Recent Labs: Laboratory Last Values WBC 6.3 Th/cmm (4.8-10.8) 08/05/17 08:45 RBC 5.07 Mil/cmm (3.80-5.10) 08/05/17 08:45 Hgb 14.9 gm/dL (12-16) 08/05/17 08:45 Hct 46.1 % (41.0-60) D 08/05/17 08:45 MCV 90.8 fl (81-100) 08/05/17 08:45 MCH 29.4 pg (27.0-31.0) 08/05/17 08:45 MCHC Differential 32.4 pg (28.0-36.0) 08/05/17 08:45 RDW 14.1 % (11.5-20.0) 08/05/17 08:45 Plt Count 137 Th/cmm (150-400) L 08/05/17 08:45 MPV 9.5 fl 08/05/17 08:45 Neutrophils % 75.3 % (40.0-80.0) 08/05/17 08:45 Lymphocytes % 19.0 % (20.0-50.0) L 08/05/17 08:45 Monocytes % 4.5 % (2.0-10.0) 08/05/17 08:45 Eosinophils % 1.0 % (0.0-5.0) 08/05/17 08:45 Basophils % 0.2 % (0.0-2.0) 08/05/17 08:45 PT 11.2 SECONDS (9.5-11.5) 08/03/17 12:40 INR 1.08 (0.5-1.4) 08/03/17 12:40 Sodium 132 mEq/L (136-145) L 08/05/17 08:45 Potassium 3.9 mEq/L (3.5-5.1) 08/05/17 08:45 Chloride 101 mEq/L (98-107) 08/05/17 08:45 Carbon Dioxide 23.9 mEq/L (21.0-31.0) 08/05/17 08:45 Anion Gap 11.0 (7.0-16.0) 08/05/17 08:45 BUN 30 mg/dL (7-25) H 08/05/17 08:45 Creatinine 0.7 mg/dL (0.6-1.2) 08/05/17 08:45 Est GFR ( Amer) > 60.0 ml/min (>90) 08/05/17 08:45 Est GFR (Non-Af Amer) > 60.0 ml/min 08/05/17 08:45 BUN/Creatinine Ratio 42.9 08/05/17 08:45 Glucose 325 mg/dL (70-105) H 08/05/17 08:45 POC Glucose 224 MG/DL (70 - 105) H 08/15/17 06:22 Hemoglobin A1c % 12.3 % (4.0-6.0) H 08/03/17 12:40 Calcium 9.4 mg/dL (8.6-10.3) 08/05/17 08:45 Magnesium 1.6 mg/dL (1.9-2.7) L 08/04/17 04:30 Total Bilirubin 1.0 mg/dL (0.3-1.0) 08/03/17 12:40 AST 54 U/L (13-39) H 08/03/17 12:40 ALT 67 U/L (7-52) H 08/03/17 12:40 Alkaline Phosphatase 171 U/L (34-104) H 08/03/17 12:40 Creatine Kinase 55 U/L (30-223) 08/03/17 12:40 Troponin I < 0.01 ng/mL (0.01-0.05) L 08/03/17 12:40 B-Natriuretic Peptide 38.1 pg/mL (5.0-100.0) 08/03/17 12:40 Total Protein 8.2 gm/dL (6.0-8.3) 08/03/17 12:40 Albumin 4.3 gm/dL (3.7-5.3) 08/03/17 12:40 Globulin 3.9 gm/dL 08/03/17 12:40 Albumin/Globulin Ratio 1.1 (1.0-1.8) 08/03/17 12:40 Triglycerides 113 mg/dL (<150) 08/04/17 04:30 Cholesterol 103 mg/dL (<200) 08/04/17 04:30 LDL Cholesterol Direct 85 mg/dL (75-193) 08/04/17 04:30 HDL Cholesterol 26 mg/dL (23-92) 08/04/17 04:30 Amylase 72 U/L (29-103) 08/03/17 12:40 Lipase 97 U/L (11-82) H 08/03/17 12:40 TSH 1.17 uIU/ml (0.34-5.60) 08/04/17 04:30 Serum , Qual NEGATIVE (NEGATIVE) 08/03/17 12:22 Urine Source CLEAN C 08/03/17 20:25 Urine Color YELLOW 08/03/17 20:25 Urine Clarity HAZY (CLEAR) 08/03/17 20:25 Urine pH 5.0 (4.6 - 8.0) 08/03/17 20:25 Ur Specific [place] 1.025 (1.005-1.030) 08/03/17 20:25 Urine Protein 100 mg/dL (NEGATIVE) H 08/03/17 20:25 Urine Glucose (UA) >=1000 mg/dL (NEGATIVE) H 08/03/17 20:25 Urine Ketones NEGATIVE mg/dL (NEGATIVE) 08/03/17 20:25 Urine Blood TRACE (NEGATIVE) 08/03/17 20:25 Urine Nitrate POSITIVE (NEGATIVE) H 08/03/17 20:25 Urine Bilirubin NEGATIVE (NEGATIVE) 08/03/17 20:25 Urine Urobilinogen 0.2 E.U./dL (0.2 - 1.0) 08/03/17 20:25 Ur Leukocyte Esterase NEGATIVE (NEGATIVE) 08/03/17 20:25 Urine RBC 0-2 /hpf (0-5) 08/03/17 20:25 Urine WBC 10-25 /hpf (0-5) H 08/03/17 20:25 Ur Epithelial Cells MODERATE /lpf (FEW) 08/03/17 20:25 Urine Bacteria MANY /hpf (NONE SEEN) 08/03/17 20:25 Urine Opiates Screen NEGATIVE (NEGATIVE) 08/03/17 20:25 Urine Methadone Screen NEGATIVE (NEGATIVE) 08/03/17 20:25 Ur Barbiturates Screen NEGATIVE (NEGATIVE) 08/03/17 20:25 Ur Tricyclics Screen NEGATIVE (NEGATIVE) 08/03/17 20:25 Ur Phencyclidine Scrn NEGATIVE (NEGATIVE) 08/03/17 20:25 Amphetamines Screen NEGATIVE (NEGATIVE) 08/03/17 20:25 U Methamphetamines Scrn NEGATIVE (NEGATIVE) 08/03/17 20:25 U Benzodiazepines Scrn NEGATIVE (NEGATIVE) 08/03/17 20:25 U Cocaine Metab Screen NEGATIVE (NEGATIVE) 08/03/17 20:25 U Cannabinoids Screen NEGATIVE (NEGATIVE) 08/03/17 20:25 Serum Ketones SMALL (NEGATIVE) H 08/03/17 12:40 - Physical Exam Vitals and I&O: Vital Signs Temp 98.4 F 08/14/17 20:00 Pulse 89 08/14/17 20:00 Resp 20 08/14/17 20:00 BP 130/70 08/14/17 20:00 Pulse Ox 97 08/14/17 20:00 Intake & Output 08/14/17 08/15/17 08/15/17 18:59 06:59 18:59 Intake Total 300 480 Balance 300 480 Weight (lbs) 52.163 kg 51.71 kg 51.71 kg Intake: Oral 300 480 Other: # Voids 3 3 # Bowel Movements 1 1 Active Medications: Current Medications Escitalopram Oxalate (Lexapro) 10 mg PO DAILY [facility] PRN Reason: Protocol Stop: 10/05/17 08:59 Last Admin: 08/15/17 09:06 Dose: 10 mg Sodium Chloride (Nacl 0.45%) 1,000 mls @ 150 mls/hr IV .Q6H40M [facility] Stop: 10/02/17 17:14 Last Infusion: 08/04/17 22:00 Dose: Infused Insulin Aspart (Novolog Insulin Sliding Scale) 0 units SUBQ ACHS [facility] PRN Reason: Protocol Stop: 10/03/17 07:29 Last Admin: 08/15/17 07:01 Dose: Not Given Lactobacillus Rhamnosus (Culturelle 15b) 1 each PO DAILY [facility] Stop: 10/15/17 08:59 Levofloxacin (Levaquin) 500 mg PO DAILY [facility] Stop: 10/14/17 08:59 Last Admin: 08/15/17 09:06 Dose: 500 mg Lorazepam (Ativan) 1 mg IVP Q6HR PRN; Protocol PRN Reason: Agitation Stop: 10/02/17 17:08 Metformin HCl (Glucophage) 1,000 mg PO BID [facility] Stop: 10/03/17 08:59 Last Admin: 08/15/17 09:05 Dose: 1,000 mg Miscellaneous (Probiotic Screen) 1 ea MC PRN PRN PRN Reason: PROTOCOL Stop: 10/14/17 10:29 Mupirocin (Bactroban Oint) 1 appl TP BID [facility] Stop: 10/03/17 16:59 Last Admin: 08/15/17 09:05 Dose: 1 appl Zolpidem Tartrate (Ambien) 5 mg PO HS PRN PRN Reason: Insomnia Stop: 10/02/17 18:39 Last Admin: 08/08/17 20:32 Dose: 5 mg General: No acute distress HEENT: Atraumatic Neck: Supple - Procedures Procedures: Procedures Procedure Code Date ELECTROCARDIOGRAM 89.52 05/25/95 INJECT/INFUSE NEC 99.29 12/02/12 NASAL SURGERY PROCEDURE 60164 12/05/01 REMOVE NASAL PACKING 97.32 12/05/01 THER/PROPH/DIAG INJ SC/IM 28562 12/02/12 Assessment/Plan - Problem List Patient Problems: All Active Problems DIZZINESS WITH ELEVATED BLOOD GLUCOSE (Acute) Blood glucose elevated (Acute) R73.9 Diabetes mellitus type 2, uncontrolled, without complications (Acute) E11.65 - Assessment Assessment: Current Active Problems Problem Status Onset DIZZINESS WITH ELEVATED BLOOD GLUCOSE Acute - Plan Plan: cpm Nutritional Asmnt/Malnutr-PDOC - Dietary Evaluation Malnutrition Findings (Please click <Entered> for more info): Nutritional Asmnt/Malnutrition Start: 08/04/17 15: 39 Text: Status: Complete Freq: Document 08/04/17 15:40 HEN (Rec: 08/04/17 16:02 [email or web address]) Nutritional Asmnt/Malnutrition Patient General Information Nutritional Screening High Risk Consult Diagnosis DKA, uncontrolled DM Pertinent Medical Hx/Surgical Hx DM Subjective Information Consult received for BG>600. Pt seen lying in bed, awake and alert during the time of visit, no teeth noted. Pt complained did not like baby food, stated she is able to chew, ground diet ok. Pt stated like milk shake, eat everything, "don't care blood sugar". Nutrition education attempted, pt wanted RD to get out. Per notes, PO intake 75% . Current Diet Order/ Nutrition Support CCHO 60gm pureed Pertinent Medications Nacl 0.45%, glucopage, novolog Pertinent Labs 08/04 Na 140, K 3.6, Cl 109, BUN 34, Cr 0.7, Glucose 116, POC 90-475, Mg 1.6 08/03 A1c 12.3, glucose 641 Nutritional Hx/Data Height 1.5 m Height (Calculated Centimeters) 149.9 Current Weight (lbs) 45.359 kg Weight (Calculated Kilograms) 45.4 Weight (Calculated Grams) 93984.2 [place] Body Weight 98 % [place] Body Weight 102 Body Mass Index (BMI) 20.2 Weight Status Approriate GI Symptoms GI Symptoms None Last BM none Difficult in: None Usual diet at home Per pt 3 meals and 1 snack daily, no diet restriction, take DM medicine. Skin Integrity/Comment: intact Estimated Nutritional Goals BEE in Kcals: Using Current wt Calories/Kcals/Kg 25-30 Kcals Calculated 6176-4797 Protein: Using Current wt Protein g/k-1.2 Protein Calculated 46-55 Fluid: ml 7539-1252 Nutritional Problem 1. Problem Problem altered nutrition related lab values Etiology hx of DM, possible imbalanced carbohydrate intake Signs/Symptoms: A1c 12.3, glucose 641 Malnutrition Alert Protein-Calorie Malnutrition N/A Is there a minimum of two criteria No selected? Query Text:Check all the applicable criteria. A minimum of two criteria are recommended for diagnosis of either severe or non-severe malnutrition. Intervention/Recommendation Comments 1. Continue with [facility] diet. Notified RN, RN will talk to MD for diet texture change. 2. Monitor PO intake, wt weekly, labs and skin integrity 3. F/U as moderate risk in 3-5 days, 08/07-08/09 Expected Outcomes/Goals Expected Outcomes/Goals 1. PO intake to meet at least 75% of nutritional needs with tolerance. 2. Wt stability, skin to remain intact, labs to improve
--- NOTE | 2017-08-15 21:02 | Progress Notes ---
DATE: 08/14/2017 SUBJECTIVE: The patient was seen in her room, lying on the bed. The patient appears to be guarded at this time. Denies any pain or discomfort. Nausea report and according to the nurses. Otherwise, the patient appears to be in no acute distress. OBJECTIVE: VITAL SIGNS: Temperature 98.5, heart rate of 80, respiration of 20, blood pressure 127/43, 97% on room air. HEENT: Head is atraumatic and normocephalic. Eyes: Bilateral conjunctivae are clear. Bilateral pupils are equally round and reactive. NECK: Supple. No JVD. CARDIOVASCULAR: S1 and S2, without murmur. PULMONARY: Clear to auscultation. GASTROINTESTINAL: Soft and nontender without guarding. Positive bowel sounds. MUSCULOSKELETAL: No clubbing. No cyanosis noted. ASSESSMENT: 1. Major depression disorder. 2. Diabetes mellitus. 3. Anxiety. PLAN: We will keep the patient inpatient. We will follow up with the psychiatrist. Monitor the patient's condition and behavior. Treatment plans were discussed with the nurse. Treatment plans were discussed with Dr. Saini. JOB# [id number]
[2017-08-16] MEDS: Escitalopram Oxalate 5 mg Tab PO SCH (08:47)
[2017-08-16] MEDS: Lactobacillus Rhamnosus GG 15 Billion CFU CAP.SPRINK PO SCH (08:47)
[2017-08-16] MEDS: INSULIN ASPART SLIDING SCALE 100 UNITS/ML UNIT SUBQ SCH ×4 (08:48→21:55)
--- NOTE | 2017-08-16 13:33 | General Progress Note ---
Subjective - Review of Systems Events since last encounter: patient denies pain in no distress Objective - Results Result Diagrams: 08/05/17 08:45 08/05/17 08:45 Recent Labs: Laboratory Last Values WBC 6.3 Th/cmm (4.8-10.8) 08/05/17 08:45 RBC 5.07 Mil/cmm (3.80-5.10) 08/05/17 08:45 Hgb 14.9 gm/dL (12-16) 08/05/17 08:45 Hct 46.1 % (41.0-60) D 08/05/17 08:45 MCV 90.8 fl (81-100) 08/05/17 08:45 MCH 29.4 pg (27.0-31.0) 08/05/17 08:45 MCHC Differential 32.4 pg (28.0-36.0) 08/05/17 08:45 RDW 14.1 % (11.5-20.0) 08/05/17 08:45 Plt Count 137 Th/cmm (150-400) L 08/05/17 08:45 MPV 9.5 fl 08/05/17 08:45 Neutrophils % 75.3 % (40.0-80.0) 08/05/17 08:45 Lymphocytes % 19.0 % (20.0-50.0) L 08/05/17 08:45 Monocytes % 4.5 % (2.0-10.0) 08/05/17 08:45 Eosinophils % 1.0 % (0.0-5.0) 08/05/17 08:45 Basophils % 0.2 % (0.0-2.0) 08/05/17 08:45 PT 11.2 SECONDS (9.5-11.5) 08/03/17 12:40 INR 1.08 (0.5-1.4) 08/03/17 12:40 Sodium 132 mEq/L (136-145) L 08/05/17 08:45 Potassium 3.9 mEq/L (3.5-5.1) 08/05/17 08:45 Chloride 101 mEq/L (98-107) 08/05/17 08:45 Carbon Dioxide 23.9 mEq/L (21.0-31.0) 08/05/17 08:45 Anion Gap 11.0 (7.0-16.0) 08/05/17 08:45 BUN 30 mg/dL (7-25) H 08/05/17 08:45 Creatinine 0.7 mg/dL (0.6-1.2) 08/05/17 08:45 Est GFR ( Amer) > 60.0 ml/min (>90) 08/05/17 08:45 Est GFR (Non-Af Amer) > 60.0 ml/min 08/05/17 08:45 BUN/Creatinine Ratio 42.9 08/05/17 08:45 Glucose 325 mg/dL (70-105) H 08/05/17 08:45 POC Glucose 303 MG/DL (70 - 105) H 08/16/17 11:03 Hemoglobin A1c % 12.3 % (4.0-6.0) H 08/03/17 12:40 Calcium 9.4 mg/dL (8.6-10.3) 08/05/17 08:45 Magnesium 1.6 mg/dL (1.9-2.7) L 08/04/17 04:30 Total Bilirubin 1.0 mg/dL (0.3-1.0) 08/03/17 12:40 AST 54 U/L (13-39) H 08/03/17 12:40 ALT 67 U/L (7-52) H 08/03/17 12:40 Alkaline Phosphatase 171 U/L (34-104) H 08/03/17 12:40 Creatine Kinase 55 U/L (30-223) 08/03/17 12:40 Troponin I < 0.01 ng/mL (0.01-0.05) L 08/03/17 12:40 B-Natriuretic Peptide 38.1 pg/mL (5.0-100.0) 08/03/17 12:40 Total Protein 8.2 gm/dL (6.0-8.3) 08/03/17 12:40 Albumin 4.3 gm/dL (3.7-5.3) 08/03/17 12:40 Globulin 3.9 gm/dL 08/03/17 12:40 Albumin/Globulin Ratio 1.1 (1.0-1.8) 08/03/17 12:40 Triglycerides 113 mg/dL (<150) 08/04/17 04:30 Cholesterol 103 mg/dL (<200) 08/04/17 04:30 LDL Cholesterol Direct 85 mg/dL (75-193) 08/04/17 04:30 HDL Cholesterol 26 mg/dL (23-92) 08/04/17 04:30 Amylase 72 U/L (29-103) 08/03/17 12:40 Lipase 97 U/L (11-82) H 08/03/17 12:40 TSH 1.17 uIU/ml (0.34-5.60) 08/04/17 04:30 Serum , Qual NEGATIVE (NEGATIVE) 08/03/17 12:22 Urine Source CLEAN C 08/03/17 20:25 Urine Color YELLOW 08/03/17 20:25 Urine Clarity HAZY (CLEAR) 08/03/17 20:25 Urine pH 5.0 (4.6 - 8.0) 08/03/17 20:25 Ur Specific [place] 1.025 (1.005-1.030) 08/03/17 20:25 Urine Protein 100 mg/dL (NEGATIVE) H 08/03/17 20:25 Urine Glucose (UA) >=1000 mg/dL (NEGATIVE) H 08/03/17 20:25 Urine Ketones NEGATIVE mg/dL (NEGATIVE) 08/03/17 20:25 Urine Blood TRACE (NEGATIVE) 08/03/17 20:25 Urine Nitrate POSITIVE (NEGATIVE) H 08/03/17 20:25 Urine Bilirubin NEGATIVE (NEGATIVE) 08/03/17 20:25 Urine Urobilinogen 0.2 E.U./dL (0.2 - 1.0) 08/03/17 20:25 Ur Leukocyte Esterase NEGATIVE (NEGATIVE) 08/03/17 20:25 Urine RBC 0-2 /hpf (0-5) 08/03/17 20:25 Urine WBC 10-25 /hpf (0-5) H 08/03/17 20:25 Ur Epithelial Cells MODERATE /lpf (FEW) 08/03/17 20:25 Urine Bacteria MANY /hpf (NONE SEEN) 08/03/17 20:25 Urine Opiates Screen NEGATIVE (NEGATIVE) 08/03/17 20:25 Urine Methadone Screen NEGATIVE (NEGATIVE) 08/03/17 20:25 Ur Barbiturates Screen NEGATIVE (NEGATIVE) 08/03/17 20:25 Ur Tricyclics Screen NEGATIVE (NEGATIVE) 08/03/17 20:25 Ur Phencyclidine Scrn NEGATIVE (NEGATIVE) 08/03/17 20:25 Amphetamines Screen NEGATIVE (NEGATIVE) 08/03/17 20:25 U Methamphetamines Scrn NEGATIVE (NEGATIVE) 08/03/17 20:25 U Benzodiazepines Scrn NEGATIVE (NEGATIVE) 08/03/17 20:25 U Cocaine Metab Screen NEGATIVE (NEGATIVE) 08/03/17 20:25 U Cannabinoids Screen NEGATIVE (NEGATIVE) 08/03/17 20:25 Serum Ketones SMALL (NEGATIVE) H 08/03/17 12:40 - Physical Exam Vitals and I&O: Vital Signs Temp 96.8 F 08/16/17 11:57 Pulse 66 08/16/17 11:57 Resp 18 08/16/17 11:57 BP 127/59 08/16/17 11:57 Pulse Ox 100 08/16/17 11:57 Intake & Output 08/15/17 08/16/17 08/16/17 18:59 06:59 18:59 Intake Total 480 450 Balance 480 450 Weight (lbs) 51.71 kg 51.71 kg Intake: Oral 480 450 Other: # Voids 4 # Bowel Movements 1 Active Medications: Current Medications Escitalopram Oxalate (Lexapro) 10 mg PO DAILY [facility] PRN Reason: Protocol Stop: 10/05/17 08:59 Last Admin: 08/16/17 08:47 Dose: 10 mg Sodium Chloride (Nacl 0.45%) 1,000 mls @ 150 mls/hr IV .Q6H40M [facility] Stop: 10/02/17 17:14 Last Infusion: 08/04/17 22:00 Dose: Infused Insulin Aspart (Novolog Insulin Sliding Scale) 0 units SUBQ ACHS [facility] PRN Reason: Protocol Stop: 10/03/17 07:29 Last Admin: 08/16/17 11:29 Dose: 12 units Lactobacillus Rhamnosus (Culturelle 15b) 1 each PO DAILY [facility] Stop: 10/15/17 08:59 Last Admin: 08/16/17 08:47 Dose: 1 each Levofloxacin (Levaquin) 500 mg PO DAILY [facility] Stop: 10/14/17 08:59 Last Admin: 08/16/17 08:46 Dose: 500 mg Lorazepam (Ativan) 1 mg IVP Q6HR PRN; Protocol PRN Reason: Agitation Stop: 10/02/17 17:08 Metformin HCl (Glucophage) 1,000 mg PO BID [facility] Stop: 10/03/17 08:59 Last Admin: 08/16/17 08:47 Dose: 1,000 mg Miscellaneous (Probiotic Screen) 1 ea MC PRN PRN PRN Reason: PROTOCOL Stop: 10/14/17 10:29 Mupirocin (Bactroban Oint) 1 appl TP BID [facility] Stop: 10/03/17 16:59 Last Admin: 08/16/17 08:46 Dose: 1 appl Zolpidem Tartrate (Ambien) 5 mg PO HS PRN PRN Reason: Insomnia Stop: 10/02/17 18:39 Last Admin: 08/08/17 20:32 Dose: 5 mg General: No acute distress HEENT: Atraumatic Neck: Supple - Procedures Procedures: Procedures Procedure Code Date ELECTROCARDIOGRAM 89.52 05/25/95 INJECT/INFUSE NEC 99.29 12/02/12 NASAL SURGERY PROCEDURE 20446 12/05/01 REMOVE NASAL PACKING 97.32 12/05/01 THER/PROPH/DIAG INJ SC/IM 73485 12/02/12 Assessment/Plan - Problem List Patient Problems: All Active Problems DIZZINESS WITH ELEVATED BLOOD GLUCOSE (Acute) Blood glucose elevated (Acute) R73.9 Diabetes mellitus type 2, uncontrolled, without complications (Acute) E11.65 - Assessment Assessment: Current Active Problems Problem Status Onset DIZZINESS WITH ELEVATED BLOOD GLUCOSE Acute - Plan Plan: cpm Nutritional Asmnt/Malnutr-PDOC - Dietary Evaluation Malnutrition Findings (Please click <Entered> for more info): Nutritional Asmnt/Malnutrition Start: 08/04/17 15: 39 Text: Status: Complete Freq: Document 08/04/17 15:40 LCHENG (Rec: 08/04/17 16:02 [email or web address]) Nutritional Asmnt/Malnutrition Patient General Information Nutritional Screening High Risk Consult Diagnosis DKA, uncontrolled DM Pertinent Medical Hx/Surgical Hx DM Subjective Information Consult received for BG>600. Pt seen lying in bed, awake and alert during the time of visit, no teeth noted. Pt complained did not like baby food, stated she is able to chew, ground diet ok. Pt stated like milk shake, eat everything, "don't care blood sugar". Nutrition education attempted, pt wanted RD to get out. Per notes, PO intake 75% . Current Diet Order/ Nutrition Support [facility] 60gm pureed Pertinent Medications Nacl 0.45%, glucopage, novolog Pertinent Labs 08/04 Na 140, K 3.6, Cl 109, BUN 34, Cr 0.7, Glucose 116, POC 90-475, Mg 1.6 08/03 A1c 12.3, glucose 641 Nutritional Hx/Data Height 1.5 m Height (Calculated Centimeters) 149.9 Current Weight (lbs) 45.359 kg Weight (Calculated Kilograms) 45.4 Weight (Calculated Grams) 27108.2 [place] Body Weight 98 % [place] Body Weight 102 Body Mass Index (BMI) 20.2 Weight Status Approriate GI Symptoms GI Symptoms None Last BM none Difficult in: None Usual diet at home Per pt 3 meals and 1 snack daily, no diet restriction, take DM medicine. Skin Integrity/Comment: intact Estimated Nutritional Goals BEE in Kcals: Using Current wt Calories/Kcals/Kg 25-30 Kcals Calculated 0997-8444 Protein: Using Current wt Protein g/k-1.2 Protein Calculated 46-55 Fluid: ml 4630-3645 Nutritional Problem 1. Problem Problem altered nutrition related lab values Etiology hx of DM, possible imbalanced carbohydrate intake Signs/Symptoms: A1c 12.3, glucose 641 Malnutrition Alert Protein-Calorie Malnutrition N/A Is there a minimum of two criteria No selected? Query Text:Check all the applicable criteria. A minimum of two criteria are recommended for diagnosis of either severe or non-severe malnutrition. Intervention/Recommendation Comments 1. Continue with [facility] diet. Notified RN, RN will talk to MD for diet texture change. 2. Monitor PO intake, wt weekly, labs and skin integrity 3. F/U as moderate risk in 3-5 days, 08/07-08/09 Expected Outcomes/Goals Expected Outcomes/Goals 1. PO intake to meet at least 75% of nutritional needs with tolerance. 2. Wt stability, skin to remain intact, labs to improve
[2017-08-17] MEDS: INSULIN ASPART SLIDING SCALE 100 UNITS/ML UNIT SUBQ SCH ×4 (06:36→20:48)
[2017-08-17] MEDS: Lactobacillus Rhamnosus GG 15 Billion CFU CAP.SPRINK PO SCH (08:30)
[2017-08-17] MEDS: Escitalopram Oxalate 5 mg Tab PO SCH (08:30)
--- NOTE | 2017-08-17 10:47 | Internal Medicine Prog Note ---
Internal Medicine Subjective - Subjective Service Date: 08/17/17 Patient is:: awake Per staff patient has:: no adverse event, tolerating meds Internal Medicine Objective - Results Result Diagrams: 08/05/17 08:45 08/05/17 08:45 Recent Labs: Laboratory Last Values WBC 6.3 Th/cmm (4.8-10.8) 08/05/17 08:45 RBC 5.07 Mil/cmm (3.80-5.10) 08/05/17 08:45 Hgb 14.9 gm/dL (12-16) 08/05/17 08:45 Hct 46.1 % (41.0-60) D 08/05/17 08:45 MCV 90.8 fl (81-100) 08/05/17 08:45 MCH 29.4 pg (27.0-31.0) 08/05/17 08:45 MCHC Differential 32.4 pg (28.0-36.0) 08/05/17 08:45 RDW 14.1 % (11.5-20.0) 08/05/17 08:45 Plt Count 137 Th/cmm (150-400) L 08/05/17 08:45 MPV 9.5 fl 08/05/17 08:45 Neutrophils % 75.3 % (40.0-80.0) 08/05/17 08:45 Lymphocytes % 19.0 % (20.0-50.0) L 08/05/17 08:45 Monocytes % 4.5 % (2.0-10.0) 08/05/17 08:45 Eosinophils % 1.0 % (0.0-5.0) 08/05/17 08:45 Basophils % 0.2 % (0.0-2.0) 08/05/17 08:45 PT 11.2 SECONDS (9.5-11.5) 08/03/17 12:40 INR 1.08 (0.5-1.4) 08/03/17 12:40 Sodium 132 mEq/L (136-145) L 08/05/17 08:45 Potassium 3.9 mEq/L (3.5-5.1) 08/05/17 08:45 Chloride 101 mEq/L (98-107) 08/05/17 08:45 Carbon Dioxide 23.9 mEq/L (21.0-31.0) 08/05/17 08:45 Anion Gap 11.0 (7.0-16.0) 08/05/17 08:45 BUN 30 mg/dL (7-25) H 08/05/17 08:45 Creatinine 0.7 mg/dL (0.6-1.2) 08/05/17 08:45 Est GFR ( Amer) > 60.0 ml/min (>90) 08/05/17 08:45 Est GFR (Non-Af Amer) > 60.0 ml/min 08/05/17 08:45 BUN/Creatinine Ratio 42.9 08/05/17 08:45 Glucose 325 mg/dL (70-105) H 08/05/17 08:45 POC Glucose 263 MG/DL (70 - 105) H 08/16/17 20:30 Hemoglobin A1c % 12.3 % (4.0-6.0) H 08/03/17 12:40 Calcium 9.4 mg/dL (8.6-10.3) 08/05/17 08:45 Magnesium 1.6 mg/dL (1.9-2.7) L 08/04/17 04:30 Total Bilirubin 1.0 mg/dL (0.3-1.0) 08/03/17 12:40 AST 54 U/L (13-39) H 08/03/17 12:40 ALT 67 U/L (7-52) H 08/03/17 12:40 Alkaline Phosphatase 171 U/L (34-104) H 08/03/17 12:40 Creatine Kinase 55 U/L (30-223) 08/03/17 12:40 Troponin I < 0.01 ng/mL (0.01-0.05) L 08/03/17 12:40 B-Natriuretic Peptide 38.1 pg/mL (5.0-100.0) 08/03/17 12:40 Total Protein 8.2 gm/dL (6.0-8.3) 08/03/17 12:40 Albumin 4.3 gm/dL (3.7-5.3) 08/03/17 12:40 Globulin 3.9 gm/dL 08/03/17 12:40 Albumin/Globulin Ratio 1.1 (1.0-1.8) 08/03/17 12:40 Triglycerides 113 mg/dL (<150) 08/04/17 04:30 Cholesterol 103 mg/dL (<200) 08/04/17 04:30 LDL Cholesterol Direct 85 mg/dL (75-193) 08/04/17 04:30 HDL Cholesterol 26 mg/dL (23-92) 08/04/17 04:30 Amylase 72 U/L (29-103) 08/03/17 12:40 Lipase 97 U/L (11-82) H 08/03/17 12:40 TSH 1.17 uIU/ml (0.34-5.60) 08/04/17 04:30 Serum , Qual NEGATIVE (NEGATIVE) 08/03/17 12:22 Urine Source CLEAN C 08/03/17 20:25 Urine Color YELLOW 08/03/17 20:25 Urine Clarity HAZY (CLEAR) 08/03/17 20:25 Urine pH 5.0 (4.6 - 8.0) 08/03/17 20:25 Ur Specific [place] 1.025 (1.005-1.030) 08/03/17 20:25 Urine Protein 100 mg/dL (NEGATIVE) H 08/03/17 20:25 Urine Glucose (UA) >=1000 mg/dL (NEGATIVE) H 08/03/17 20:25 Urine Ketones NEGATIVE mg/dL (NEGATIVE) 08/03/17 20:25 Urine Blood TRACE (NEGATIVE) 08/03/17 20:25 Urine Nitrate POSITIVE (NEGATIVE) H 08/03/17 20:25 Urine Bilirubin NEGATIVE (NEGATIVE) 08/03/17 20:25 Urine Urobilinogen 0.2 E.U./dL (0.2 - 1.0) 08/03/17 20:25 Ur Leukocyte Esterase NEGATIVE (NEGATIVE) 08/03/17 20:25 Urine RBC 0-2 /hpf (0-5) 08/03/17 20:25 Urine WBC 10-25 /hpf (0-5) H 08/03/17 20:25 Ur Epithelial Cells MODERATE /lpf (FEW) 08/03/17 20:25 Urine Bacteria MANY /hpf (NONE SEEN) 08/03/17 20:25 Urine Opiates Screen NEGATIVE (NEGATIVE) 08/03/17 20:25 Urine Methadone Screen NEGATIVE (NEGATIVE) 08/03/17 20:25 Ur Barbiturates Screen NEGATIVE (NEGATIVE) 08/03/17 20:25 Ur Tricyclics Screen NEGATIVE (NEGATIVE) 08/03/17 20:25 Ur Phencyclidine Scrn NEGATIVE (NEGATIVE) 08/03/17 20:25 Amphetamines Screen NEGATIVE (NEGATIVE) 08/03/17 20:25 U Methamphetamines Scrn NEGATIVE (NEGATIVE) 08/03/17 20:25 U Benzodiazepines Scrn NEGATIVE (NEGATIVE) 08/03/17 20:25 U Cocaine Metab Screen NEGATIVE (NEGATIVE) 08/03/17 20:25 U Cannabinoids Screen NEGATIVE (NEGATIVE) 08/03/17 20:25 Serum Ketones SMALL (NEGATIVE) H 08/03/17 12:40 - Physical Exam Vitals and I&O: Vital Signs Temp 97.6 F 08/17/17 08:00 Pulse 54 08/17/17 08:00 Resp 18 08/17/17 10:00 BP 149/83 08/17/17 08:00 Pulse Ox 98 08/17/17 08:00 Intake & Output 08/16/17 08/17/17 08/17/17 18:59 06:59 18:59 Intake Total 450 Balance 450 Weight (lbs) 114 lb Intake: Oral 450 Other: # Voids 4 # Bowel Movements 1 Active Medications: Current Medications Escitalopram Oxalate (Lexapro) 10 mg PO DAILY [facility] PRN Reason: Protocol Stop: 10/05/17 08:59 Last Admin: 08/17/17 08:30 Dose: 10 mg Sodium Chloride (Nacl 0.45%) 1,000 mls @ 150 mls/hr IV .Q6H40M [facility] Stop: 10/02/17 17:14 Last Infusion: 08/04/17 22:00 Dose: Infused Insulin Aspart (Novolog Insulin Sliding Scale) 0 units SUBQ ACHS [facility] PRN Reason: Protocol Stop: 10/03/17 07:29 Last Admin: 08/17/17 06:36 Dose: Not Given Lactobacillus Rhamnosus (Culturelle 15b) 1 each PO DAILY [facility] Stop: 10/15/17 08:59 Last Admin: 08/17/17 08:30 Dose: 1 each Levofloxacin (Levaquin) 500 mg PO DAILY [facility] Stop: 10/14/17 08:59 Last Admin: 08/17/17 08:30 Dose: 500 mg Lorazepam (Ativan) 1 mg IVP Q6HR PRN; Protocol PRN Reason: Agitation Stop: 10/02/17 17:08 Metformin HCl (Glucophage) 1,000 mg PO BID [facility] Stop: 10/03/17 08:59 Last Admin: 08/17/17 08:29 Dose: 1,000 mg Miscellaneous (Probiotic Screen) 1 ea MC PRN PRN PRN Reason: PROTOCOL Stop: 10/14/17 10:29 Mupirocin (Bactroban Oint) 1 appl TP BID [facility] Stop: 10/03/17 16:59 Last Admin: 08/17/17 08:29 Dose: 1 appl Zolpidem Tartrate (Ambien) 5 mg PO HS PRN PRN Reason: Insomnia Stop: 10/02/17 18:39 Last Admin: 08/08/17 20:32 Dose: 5 mg HEENT: NC/AT, PERRLA Neck: Supple Lungs: CTAB Abdomen: positive bowel sound Neurological: alert - Procedures Procedures: Procedures Procedure Code Date ELECTROCARDIOGRAM 89.52 05/25/95 INJECT/INFUSE NEC 99.29 12/02/12 NASAL SURGERY PROCEDURE 32797 12/05/01 REMOVE NASAL PACKING 97.32 12/05/01 THER/PROPH/DIAG INJ SC/IM 40983 12/02/12 Internal Medicine Assmt/Plan - Assessment Assessment: DIZZINESS WITH ELEVATED BLOOD GLUCOSE (Acute) Blood glucose elevated (Acute) R73.9 Diabetes mellitus type 2, uncontrolled, without complications (Acute) E11.65 - Plan Plan: follow up labs in am empiric ivabx monitor glucose cpm Nutritional Asmnt/Malnutr-PDOC - Dietary Evaluation Malnutrition Findings (Please click <Entered> for more info): Nutritional Asmnt/Malnutrition Start: 08/04/17 15: 39 Text: Status: Complete Freq: Document 08/04/17 15:40 LCHENG (Rec: 08/04/17 16:02 [email or web address]) Nutritional Asmnt/Malnutrition Patient General Information Nutritional Screening High Risk Consult Diagnosis DKA, uncontrolled DM Pertinent Medical Hx/Surgical Hx DM Subjective Information Consult received for BG>600. Pt seen lying in bed, awake and alert during the time of visit, no teeth noted. Pt complained did not like baby food, stated she is able to chew, ground diet ok. Pt stated like milk shake, eat everything, "don't care blood sugar". Nutrition education attempted, pt wanted RD to get out. Per notes, PO intake 75% . Current Diet Order/ Nutrition Support [facility] 60gm pureed Pertinent Medications Nacl 0.45%, glucopage, novolog Pertinent Labs 08/04 Na 140, K 3.6, Cl 109, BUN 34, Cr 0.7, Glucose 116, POC 90-475, Mg 1.6 08/03 A1c 12.3, glucose 641 Nutritional Hx/Data Height 4 ft 11 in Height (Calculated Centimeters) 149.9 Current Weight (lbs) 100 lb Weight (Calculated Kilograms) 45.4 Weight (Calculated Grams) 97133.2 [place] Body Weight 98 % [place] Body Weight 102 Body Mass Index (BMI) 20.2 Weight Status Approriate GI Symptoms GI Symptoms None Last BM none Difficult in: None Usual diet at home Per pt 3 meals and 1 snack daily, no diet restriction, take DM medicine. Skin Integrity/Comment: intact Estimated Nutritional Goals BEE in Kcals: Using Current wt Calories/Kcals/Kg 25-30 Kcals Calculated 4017-3094 Protein: Using Current wt Protein g/k-1.2 Protein Calculated 46-55 Fluid: ml 7956-4182 Nutritional Problem 1. Problem Problem altered nutrition related lab values Etiology hx of DM, possible imbalanced carbohydrate intake Signs/Symptoms: A1c 12.3, glucose 641 Malnutrition Alert Protein-Calorie Malnutrition N/A Is there a minimum of two criteria No selected? Query Text:Check all the applicable criteria. A minimum of two criteria are recommended for diagnosis of either severe or non-severe malnutrition. Intervention/Recommendation Comments 1. Continue with [facility] diet. Notified RN, RN will talk to MD for diet texture change. 2. Monitor PO intake, wt weekly, labs and skin integrity 3. F/U as moderate risk in 3-5 days, 08/07-08/09 Expected Outcomes/Goals Expected Outcomes/Goals 1. PO intake to meet at least 75% of nutritional needs with tolerance. 2. Wt stability, skin to remain intact, labs to improve
[2017-08-18] MEDS: INSULIN ASPART SLIDING SCALE 100 UNITS/ML UNIT SUBQ SCH ×4 (06:40→20:39)
[2017-08-18] MEDS: Escitalopram Oxalate 5 mg Tab PO SCH (10:05)
[2017-08-18] MEDS: Lactobacillus Rhamnosus GG 15 Billion CFU CAP.SPRINK PO SCH (10:05)
--- NOTE | 2017-08-18 16:18 | General Progress Note ---
Subjective - Review of Systems Events since last encounter: no distress Objective - Results Result Diagrams: 08/05/17 08:45 08/05/17 08:45 Recent Labs: Laboratory Last Values WBC 6.3 Th/cmm (4.8-10.8) 08/05/17 08:45 RBC 5.07 Mil/cmm (3.80-5.10) 08/05/17 08:45 Hgb 14.9 gm/dL (12-16) 08/05/17 08:45 Hct 46.1 % (41.0-60) D 08/05/17 08:45 MCV 90.8 fl (81-100) 08/05/17 08:45 MCH 29.4 pg (27.0-31.0) 08/05/17 08:45 MCHC Differential 32.4 pg (28.0-36.0) 08/05/17 08:45 RDW 14.1 % (11.5-20.0) 08/05/17 08:45 Plt Count 137 Th/cmm (150-400) L 08/05/17 08:45 MPV 9.5 fl 08/05/17 08:45 Neutrophils % 75.3 % (40.0-80.0) 08/05/17 08:45 Lymphocytes % 19.0 % (20.0-50.0) L 08/05/17 08:45 Monocytes % 4.5 % (2.0-10.0) 08/05/17 08:45 Eosinophils % 1.0 % (0.0-5.0) 08/05/17 08:45 Basophils % 0.2 % (0.0-2.0) 08/05/17 08:45 PT 11.2 SECONDS (9.5-11.5) 08/03/17 12:40 INR 1.08 (0.5-1.4) 08/03/17 12:40 Sodium 132 mEq/L (136-145) L 08/05/17 08:45 Potassium 3.9 mEq/L (3.5-5.1) 08/05/17 08:45 Chloride 101 mEq/L (98-107) 08/05/17 08:45 Carbon Dioxide 23.9 mEq/L (21.0-31.0) 08/05/17 08:45 Anion Gap 11.0 (7.0-16.0) 08/05/17 08:45 BUN 30 mg/dL (7-25) H 08/05/17 08:45 Creatinine 0.7 mg/dL (0.6-1.2) 08/05/17 08:45 Est GFR ( Amer) > 60.0 ml/min (>90) 08/05/17 08:45 Est GFR (Non-Af Amer) > 60.0 ml/min 08/05/17 08:45 BUN/Creatinine Ratio 42.9 08/05/17 08:45 Glucose 325 mg/dL (70-105) H 08/05/17 08:45 POC Glucose 307 MG/DL (70 - 105) H 08/18/17 11:15 Hemoglobin A1c % 12.3 % (4.0-6.0) H 08/03/17 12:40 Calcium 9.4 mg/dL (8.6-10.3) 08/05/17 08:45 Magnesium 1.6 mg/dL (1.9-2.7) L 08/04/17 04:30 Total Bilirubin 1.0 mg/dL (0.3-1.0) 08/03/17 12:40 AST 54 U/L (13-39) H 08/03/17 12:40 ALT 67 U/L (7-52) H 08/03/17 12:40 Alkaline Phosphatase 171 U/L (34-104) H 08/03/17 12:40 Creatine Kinase 55 U/L (30-223) 08/03/17 12:40 Troponin I < 0.01 ng/mL (0.01-0.05) L 08/03/17 12:40 B-Natriuretic Peptide 38.1 pg/mL (5.0-100.0) 08/03/17 12:40 Total Protein 8.2 gm/dL (6.0-8.3) 08/03/17 12:40 Albumin 4.3 gm/dL (3.7-5.3) 08/03/17 12:40 Globulin 3.9 gm/dL 08/03/17 12:40 Albumin/Globulin Ratio 1.1 (1.0-1.8) 08/03/17 12:40 Triglycerides 113 mg/dL (<150) 08/04/17 04:30 Cholesterol 103 mg/dL (<200) 08/04/17 04:30 LDL Cholesterol Direct 85 mg/dL (75-193) 08/04/17 04:30 HDL Cholesterol 26 mg/dL (23-92) 08/04/17 04:30 Amylase 72 U/L (29-103) 08/03/17 12:40 Lipase 97 U/L (11-82) H 08/03/17 12:40 TSH 1.17 uIU/ml (0.34-5.60) 08/04/17 04:30 Serum , Qual NEGATIVE (NEGATIVE) 08/03/17 12:22 Urine Source CLEAN C 08/03/17 20:25 Urine Color YELLOW 08/03/17 20:25 Urine Clarity HAZY (CLEAR) 08/03/17 20:25 Urine pH 5.0 (4.6 - 8.0) 08/03/17 20:25 Ur Specific [place] 1.025 (1.005-1.030) 08/03/17 20:25 Urine Protein 100 mg/dL (NEGATIVE) H 08/03/17 20:25 Urine Glucose (UA) >=1000 mg/dL (NEGATIVE) H 08/03/17 20:25 Urine Ketones NEGATIVE mg/dL (NEGATIVE) 08/03/17 20:25 Urine Blood TRACE (NEGATIVE) 08/03/17 20:25 Urine Nitrate POSITIVE (NEGATIVE) H 08/03/17 20:25 Urine Bilirubin NEGATIVE (NEGATIVE) 08/03/17 20:25 Urine Urobilinogen 0.2 E.U./dL (0.2 - 1.0) 08/03/17 20:25 Ur Leukocyte Esterase NEGATIVE (NEGATIVE) 08/03/17 20:25 Urine RBC 0-2 /hpf (0-5) 08/03/17 20:25 Urine WBC 10-25 /hpf (0-5) H 08/03/17 20:25 Ur Epithelial Cells MODERATE /lpf (FEW) 08/03/17 20:25 Urine Bacteria MANY /hpf (NONE SEEN) 08/03/17 20:25 Urine Opiates Screen NEGATIVE (NEGATIVE) 08/03/17 20:25 Urine Methadone Screen NEGATIVE (NEGATIVE) 08/03/17 20:25 Ur Barbiturates Screen NEGATIVE (NEGATIVE) 08/03/17 20:25 Ur Tricyclics Screen NEGATIVE (NEGATIVE) 08/03/17 20:25 Ur Phencyclidine Scrn NEGATIVE (NEGATIVE) 08/03/17 20:25 Amphetamines Screen NEGATIVE (NEGATIVE) 08/03/17 20:25 U Methamphetamines Scrn NEGATIVE (NEGATIVE) 08/03/17 20:25 U Benzodiazepines Scrn NEGATIVE (NEGATIVE) 08/03/17 20:25 U Cocaine Metab Screen NEGATIVE (NEGATIVE) 08/03/17 20:25 U Cannabinoids Screen NEGATIVE (NEGATIVE) 08/03/17 20:25 Serum Ketones SMALL (NEGATIVE) H 08/03/17 12:40 - Physical Exam Vitals and I&O: Vital Signs Temp 97.6 F 08/18/17 00:00 Pulse 77 08/18/17 00:00 Resp 18 08/18/17 10:00 BP 113/46 08/18/17 00:00 Pulse Ox 98 08/18/17 00:00 Intake & Output 08/17/17 08/18/17 08/18/17 18:59 06:59 18:59 Intake Total 420 250 Balance 420 250 Weight (lbs) 51.71 kg 51.71 kg Intake: Oral 420 250 Other: # Voids 3 # Bowel Movements 1 Active Medications: Current Medications Escitalopram Oxalate (Lexapro) 10 mg PO DAILY [facility] PRN Reason: Protocol Stop: 10/05/17 08:59 Last Admin: 08/18/17 10:05 Dose: 10 mg Sodium Chloride (Nacl 0.45%) 1,000 mls @ 150 mls/hr IV .Q6H40M [facility] Stop: 10/02/17 17:14 Last Infusion: 08/04/17 22:00 Dose: Infused Insulin Aspart (Novolog Insulin Sliding Scale) 0 units SUBQ ACHS [facility] PRN Reason: Protocol Stop: 10/03/17 07:29 Last Admin: 08/18/17 12:52 Dose: 12 units Lactobacillus Rhamnosus (Culturelle 15b) 1 each PO DAILY [facility] Stop: 10/15/17 08:59 Last Admin: 08/18/17 10:05 Dose: 1 each Levofloxacin (Levaquin) 500 mg PO DAILY [facility] Stop: 10/14/17 08:59 Last Admin: 08/18/17 10:05 Dose: 500 mg Metformin HCl (Glucophage) 1,000 mg PO BID [facility] Stop: 10/03/17 08:59 Last Admin: 08/18/17 10:05 Dose: 1,000 mg Miscellaneous (Probiotic Screen) 1 ea MC PRN PRN PRN Reason: PROTOCOL Stop: 10/14/17 10:29 Mupirocin (Bactroban Oint) 1 appl TP BID [facility] Stop: 10/03/17 16:59 Last Admin: 08/18/17 10:05 Dose: 1 appl General: No acute distress HEENT: Atraumatic Neck: Supple - Procedures Procedures: Procedures Procedure Code Date ELECTROCARDIOGRAM 89.52 05/25/95 INJECT/INFUSE NEC 99.29 12/02/12 NASAL SURGERY PROCEDURE 21196 12/05/01 REMOVE NASAL PACKING 97.32 12/05/01 THER/PROPH/DIAG INJ SC/IM 77125 12/02/12 Assessment/Plan - Problem List Patient Problems: All Active Problems DIZZINESS WITH ELEVATED BLOOD GLUCOSE (Acute) Blood glucose elevated (Acute) R73.9 Diabetes mellitus type 2, uncontrolled, without complications (Acute) E11.65 - Assessment Assessment: Current Active Problems Problem Status Onset DIZZINESS WITH ELEVATED BLOOD GLUCOSE Acute - Plan Plan: cpm Nutritional Asmnt/Malnutr-PDOC - Dietary Evaluation Malnutrition Findings (Please click <Entered> for more info): Nutritional Asmnt/Malnutrition Start: 08/04/17 15: 39 Text: Status: Complete Freq: Document 08/04/17 15:40 MINALG (Rec: 08/04/17 16:02 [email or web address] Nutritional Asmnt/Malnutrition Patient General Information Nutritional Screening High Risk Consult Diagnosis DKA, uncontrolled DM Pertinent Medical Hx/Surgical Hx DM Subjective Information Consult received for BG>600. Pt seen lying in bed, awake and alert during the time of visit, no teeth noted. Pt complained did not like baby food, stated she is able to chew, ground diet ok. Pt stated like milk shake, eat everything, "don't care blood sugar". Nutrition education attempted, pt wanted RD to get out. Per notes, PO intake 75% . Current Diet Order/ Nutrition Support [facility] 60gm pureed Pertinent Medications Nacl 0.45%, glucopage, novolog Pertinent Labs 08/04 Na 140, K 3.6, Cl 109, BUN 34, Cr 0.7, Glucose 116, POC 90-475, Mg 1.6 08/03 A1c 12.3, glucose 641 Nutritional Hx/Data Height 1.5 m Height (Calculated Centimeters) 149.9 Current Weight (lbs) 45.359 kg Weight (Calculated Kilograms) 45.4 Weight (Calculated Grams) 63065.2 [place] Body Weight 98 % [place] Body Weight 102 Body Mass Index (BMI) 20.2 Weight Status Approriate GI Symptoms GI Symptoms None Last BM none Difficult in: None Usual diet at home Per pt 3 meals and 1 snack daily, no diet restriction, take DM medicine. Skin Integrity/Comment: intact Estimated Nutritional Goals BEE in Kcals: Using Current wt Calories/Kcals/Kg 25-30 Kcals Calculated 5542-8628 Protein: Using Current wt Protein g/k-1.2 Protein Calculated 46-55 Fluid: ml 0439-4414 Nutritional Problem 1. Problem Problem altered nutrition related lab values Etiology hx of DM, possible imbalanced carbohydrate intake Signs/Symptoms: A1c 12.3, glucose 641 Malnutrition Alert Protein-Calorie Malnutrition N/A Is there a minimum of two criteria No selected? Query Text:Check all the applicable criteria. A minimum of two criteria are recommended for diagnosis of either severe or non-severe malnutrition. Intervention/Recommendation Comments 1. Continue with [facility] diet. Notified RN, RN will talk to MD for diet texture change. 2. Monitor PO intake, wt weekly, labs and skin integrity 3. F/U as moderate risk in 3-5 days, 08/07-08/09 Expected Outcomes/Goals Expected Outcomes/Goals 1. PO intake to meet at least 75% of nutritional needs with tolerance. 2. Wt stability, skin to remain intact, labs to improve
[2017-08-19] MEDS: INSULIN ASPART SLIDING SCALE 100 UNITS/ML UNIT SUBQ SCH ×3 (07:46→18:17)
[2017-08-19] MEDS: Escitalopram Oxalate 5 mg Tab PO SCH (08:40)
[2017-08-19] MEDS: Lactobacillus Rhamnosus GG 15 Billion CFU CAP.SPRINK PO SCH (08:40)
[2017-08-20] MEDS: INSULIN ASPART SLIDING SCALE 100 UNITS/ML UNIT SUBQ SCH ×5 (03:47→21:20)
[2017-08-20] MEDS: Lactobacillus Rhamnosus GG 15 Billion CFU CAP.SPRINK PO SCH (09:59)
[2017-08-20] MEDS: Escitalopram Oxalate 5 mg Tab PO SCH (09:59)
--- NOTE | 2017-08-20 12:15 | Internal Medicine Prog Note ---
Internal Medicine Subjective - Subjective Service Date: 08/20/17 Patient is:: awake Per staff patient has:: no adverse event, tolerating meds Internal Medicine Objective - Results Result Diagrams: 08/05/17 08:45 08/05/17 08:45 Recent Labs: Laboratory Last Values WBC 6.3 Th/cmm (4.8-10.8) 08/05/17 08:45 RBC 5.07 Mil/cmm (3.80-5.10) 08/05/17 08:45 Hgb 14.9 gm/dL (12-16) 08/05/17 08:45 Hct 46.1 % (41.0-60) D 08/05/17 08:45 MCV 90.8 fl (81-100) 08/05/17 08:45 MCH 29.4 pg (27.0-31.0) 08/05/17 08:45 MCHC Differential 32.4 pg (28.0-36.0) 08/05/17 08:45 RDW 14.1 % (11.5-20.0) 08/05/17 08:45 Plt Count 137 Th/cmm (150-400) L 08/05/17 08:45 MPV 9.5 fl 08/05/17 08:45 Neutrophils % 75.3 % (40.0-80.0) 08/05/17 08:45 Lymphocytes % 19.0 % (20.0-50.0) L 08/05/17 08:45 Monocytes % 4.5 % (2.0-10.0) 08/05/17 08:45 Eosinophils % 1.0 % (0.0-5.0) 08/05/17 08:45 Basophils % 0.2 % (0.0-2.0) 08/05/17 08:45 PT 11.2 SECONDS (9.5-11.5) 08/03/17 12:40 INR 1.08 (0.5-1.4) 08/03/17 12:40 Sodium 132 mEq/L (136-145) L 08/05/17 08:45 Potassium 3.9 mEq/L (3.5-5.1) 08/05/17 08:45 Chloride 101 mEq/L (98-107) 08/05/17 08:45 Carbon Dioxide 23.9 mEq/L (21.0-31.0) 08/05/17 08:45 Anion Gap 11.0 (7.0-16.0) 08/05/17 08:45 BUN 30 mg/dL (7-25) H 08/05/17 08:45 Creatinine 0.7 mg/dL (0.6-1.2) 08/05/17 08:45 Est GFR ( Amer) > 60.0 ml/min (>90) 08/05/17 08:45 Est GFR (Non-Af Amer) > 60.0 ml/min 08/05/17 08:45 BUN/Creatinine Ratio 42.9 08/05/17 08:45 Glucose 325 mg/dL (70-105) H 08/05/17 08:45 POC Glucose 374 MG/DL (70 - 105) H 08/19/17 20:35 Hemoglobin A1c % 12.3 % (4.0-6.0) H 08/03/17 12:40 Calcium 9.4 mg/dL (8.6-10.3) 08/05/17 08:45 Magnesium 1.6 mg/dL (1.9-2.7) L 08/04/17 04:30 Total Bilirubin 1.0 mg/dL (0.3-1.0) 08/03/17 12:40 AST 54 U/L (13-39) H 08/03/17 12:40 ALT 67 U/L (7-52) H 08/03/17 12:40 Alkaline Phosphatase 171 U/L (34-104) H 08/03/17 12:40 Creatine Kinase 55 U/L (30-223) 08/03/17 12:40 Troponin I < 0.01 ng/mL (0.01-0.05) L 08/03/17 12:40 B-Natriuretic Peptide 38.1 pg/mL (5.0-100.0) 08/03/17 12:40 Total Protein 8.2 gm/dL (6.0-8.3) 08/03/17 12:40 Albumin 4.3 gm/dL (3.7-5.3) 08/03/17 12:40 Globulin 3.9 gm/dL 08/03/17 12:40 Albumin/Globulin Ratio 1.1 (1.0-1.8) 08/03/17 12:40 Triglycerides 113 mg/dL (<150) 08/04/17 04:30 Cholesterol 103 mg/dL (<200) 08/04/17 04:30 LDL Cholesterol Direct 85 mg/dL (75-193) 08/04/17 04:30 HDL Cholesterol 26 mg/dL (23-92) 08/04/17 04:30 Amylase 72 U/L (29-103) 08/03/17 12:40 Lipase 97 U/L (11-82) H 08/03/17 12:40 TSH 1.17 uIU/ml (0.34-5.60) 08/04/17 04:30 Serum , Qual NEGATIVE (NEGATIVE) 08/03/17 12:22 Urine Source CLEAN C 08/03/17 20:25 Urine Color YELLOW 08/03/17 20:25 Urine Clarity HAZY (CLEAR) 08/03/17 20:25 Urine pH 5.0 (4.6 - 8.0) 08/03/17 20:25 Ur Specific Felt 1.025 (1.005-1.030) 08/03/17 20:25 Urine Protein 100 mg/dL (NEGATIVE) H 08/03/17 20:25 Urine Glucose (UA) >=1000 mg/dL (NEGATIVE) H 08/03/17 20:25 Urine Ketones NEGATIVE mg/dL (NEGATIVE) 08/03/17 20:25 Urine Blood TRACE (NEGATIVE) 08/03/17 20:25 Urine Nitrate POSITIVE (NEGATIVE) H 08/03/17 20:25 Urine Bilirubin NEGATIVE (NEGATIVE) 08/03/17 20:25 Urine Urobilinogen 0.2 E.U./dL (0.2 - 1.0) 08/03/17 20:25 Ur Leukocyte Esterase NEGATIVE (NEGATIVE) 08/03/17 20:25 Urine RBC 0-2 /hpf (0-5) 08/03/17 20:25 Urine WBC 10-25 /hpf (0-5) H 08/03/17 20:25 Ur Epithelial Cells MODERATE /lpf (FEW) 08/03/17 20:25 Urine Bacteria MANY /hpf (NONE SEEN) 08/03/17 20:25 Urine Opiates Screen NEGATIVE (NEGATIVE) 08/03/17 20:25 Urine Methadone Screen NEGATIVE (NEGATIVE) 08/03/17 20:25 Ur Barbiturates Screen NEGATIVE (NEGATIVE) 08/03/17 20:25 Ur Tricyclics Screen NEGATIVE (NEGATIVE) 08/03/17 20:25 Ur Phencyclidine Scrn NEGATIVE (NEGATIVE) 08/03/17 20:25 Amphetamines Screen NEGATIVE (NEGATIVE) 08/03/17 20:25 U Methamphetamines Scrn NEGATIVE (NEGATIVE) 08/03/17 20:25 U Benzodiazepines Scrn NEGATIVE (NEGATIVE) 08/03/17 20:25 U Cocaine Metab Screen NEGATIVE (NEGATIVE) 08/03/17 20:25 U Cannabinoids Screen NEGATIVE (NEGATIVE) 08/03/17 20:25 Serum Ketones SMALL (NEGATIVE) H 08/03/17 12:40 - Physical Exam Vitals and I&O: Vital Signs Temp 97.6 F 08/20/17 11:39 Pulse 59 08/20/17 11:39 Resp 17 08/20/17 11:39 BP 137/75 08/20/17 11:39 Pulse Ox 100 08/20/17 11:39 Intake & Output 08/19/17 08/20/17 08/20/17 18:59 06:59 18:59 Intake Total 300 Balance 300 Weight (lbs) 114 lb 116 lb 14.4 oz Intake: Oral 300 Other: # Voids 4 2 # Bowel Movements 1 Active Medications: Current Medications Escitalopram Oxalate (Lexapro) 10 mg PO DAILY [facility] PRN Reason: Protocol Stop: 10/05/17 08:59 Last Admin: 08/20/17 09:59 Dose: 10 mg Sodium Chloride (Nacl 0.45%) 1,000 mls @ 150 mls/hr IV .Q6H40M [facility] Stop: 10/02/17 17:14 Last Infusion: 08/04/17 22:00 Dose: Infused Insulin Aspart (Novolog Insulin Sliding Scale) 0 units SUBQ ACHS [facility] PRN Reason: Protocol Stop: 10/03/17 07:29 Last Admin: 08/20/17 09:59 Dose: Not Given Lactobacillus Rhamnosus (Culturelle 15b) 1 each PO DAILY [facility] Stop: 10/15/17 08:59 Last Admin: 08/20/17 09:59 Dose: 1 each Levofloxacin (Levaquin) 500 mg PO DAILY [facility] Stop: 10/14/17 08:59 Last Admin: 08/20/17 09:59 Dose: 500 mg Metformin HCl (Glucophage) 1,000 mg PO BID [facility] Stop: 10/03/17 08:59 Last Admin: 08/20/17 10:00 Dose: 1,000 mg Miscellaneous (Probiotic Screen) 1 ea [facility] PRN PRN PRN Reason: PROTOCOL Stop: 10/14/17 10:29 Mupirocin (Bactroban Oint) 1 appl TP BID [facility] Stop: 10/03/17 16:59 Last Admin: 08/20/17 10:00 Dose: 1 appl HEENT: NC/AT, PERRLA Neck: Supple Lungs: CTAB Abdomen: positive bowel sound Neurological: alert - Procedures Procedures: Procedures Procedure Code Date ELECTROCARDIOGRAM 89.52 05/25/95 INJECT/INFUSE NEC 99.29 12/02/12 NASAL SURGERY PROCEDURE 58644 12/05/01 REMOVE NASAL PACKING 97.32 12/05/01 THER/PROPH/DIAG INJ SC/IM 00299 12/02/12 Internal Medicine Assmt/Plan - Assessment Assessment: DIZZINESS WITH ELEVATED BLOOD GLUCOSE (Acute) Blood glucose elevated (Acute) R73.9 Diabetes mellitus type 2, uncontrolled, without complications (Acute) E11.65 - Plan Plan: follow up labs in am empiric ivabx monitor glucose cpm Nutritional Asmnt/Malnutr-PDOC - Dietary Evaluation Malnutrition Findings (Please click <Entered> for more info): Nutritional Asmnt/Malnutrition Start: 08/04/17 15: 39 Text: Status: Complete Freq: Document 08/04/17 15:40 LCHENG (Rec: 08/04/17 16:02 [email or web address]) Nutritional Asmnt/Malnutrition Patient General Information Nutritional Screening High Risk Consult Diagnosis DKA, uncontrolled DM Pertinent Medical Hx/Surgical Hx DM Subjective Information Consult received for BG>600. Pt seen lying in bed, awake and alert during the time of visit, no teeth noted. Pt complained did not like baby food, stated she is able to chew, ground diet ok. Pt stated like milk shake, eat everything, "don't care blood sugar". Nutrition education attempted, pt wanted RD to get out. Per notes, PO intake 75% . Current Diet Order/ Nutrition Support CCHO 60gm pureed Pertinent Medications Nacl 0.45%, glucopage, novolog Pertinent Labs 08/04 Na 140, K 3.6, Cl 109, BUN 34, Cr 0.7, Glucose 116, POC 90-475, Mg 1.6 08/03 A1c 12.3, glucose 641 Nutritional Hx/Data Height 4 ft 11 in Height (Calculated Centimeters) 149.9 Current Weight (lbs) 100 lb Weight (Calculated Kilograms) 45.4 Weight (Calculated Grams) 90396.2 [place] Body Weight 98 % [place] Body Weight 102 Body Mass Index (BMI) 20.2 Weight Status Approriate GI Symptoms GI Symptoms None Last BM none Difficult in: None Usual diet at home Per pt 3 meals and 1 snack daily, no diet restriction, take DM medicine. Skin Integrity/Comment: intact Estimated Nutritional Goals BEE in Kcals: Using Current wt Calories/Kcals/Kg 25-30 Kcals Calculated 0684-3083 Protein: Using Current wt Protein g/k-1.2 Protein Calculated 46-55 Fluid: ml 3836-5214 Nutritional Problem 1. Problem Problem altered nutrition related lab values Etiology hx of DM, possible imbalanced carbohydrate intake Signs/Symptoms: A1c 12.3, glucose 641 Malnutrition Alert Protein-Calorie Malnutrition N/A Is there a minimum of two criteria No selected? Query Text:Check all the applicable criteria. A minimum of two criteria are recommended for diagnosis of either severe or non-severe malnutrition. Intervention/Recommendation Comments 1. Continue with [facility] diet. Notified RN, RN will talk to MD for diet texture change. 2. Monitor PO intake, wt weekly, labs and skin integrity 3. F/U as moderate risk in 3-5 days, 08/07-08/09 Expected Outcomes/Goals Expected Outcomes/Goals 1. PO intake to meet at least 75% of nutritional needs with tolerance. 2. Wt stability, skin to remain intact, labs to improve
[2017-08-21] MEDS: INSULIN ASPART SLIDING SCALE 100 UNITS/ML UNIT SUBQ SCH ×4 (08:12→20:46)
[2017-08-21] MEDS: Lactobacillus Rhamnosus GG 15 Billion CFU CAP.SPRINK PO SCH (12:16)
[2017-08-21] MEDS: Escitalopram Oxalate 5 mg Tab PO SCH (12:21)
[2017-08-21 15:09] LABS: % BASOPHILS 0.2 % (0.0-2.0); % EOSINOPHILS 1.6 % (0.0-5.0); % LYMPHOCYTES 22.5 % (20.0-50.0); % NEUTROPHILS 67.7 % (40.0-80.0); EOSINOPHILE ABSOLUTE 0.1 Th/cmm (0.1-0.4); HEMATOCRIT 43.1 % (41.0-60); HEMOGLOBIN 14.1 gm/dL (12-16); LYMPHOCYTE ABSOLUTE 1.4 Th/cmm (1.5-3.0); MEAN CELL VOLUME 90.5 fl (81-100); MEAN CORPUSCULAR HEMOGLOBIN 29.7 pg (27.0-31.0); MEAN CORPUSCULAR HGB CONC 32.8 pg (28.0-36.0); MEAN PLATELET VOLUME 9.3 fl; MONOCYTE ABSOLUTE 0.5 Th/cmm (0.3-1.0); NEUTROPHILE ABSOLUTE 4.1 Th/cmm (1.8-8.0); PLATELET COUNT 131 Th/cmm (150-400); RED BLOOD COUNT 4.76 Mil/cmm (3.80-5.10); RED CELL DISTRIBUTION WIDTH 14.5 % (11.5-20.0); WHITE BLOOD COUNT 6.1 Th/cmm (4.8-10.8)
[2017-08-21 15:46] LABS: ANION GAP 7.4 (7.0-16.0); BUN - UREA NITROGEN 26 mg/dL (7-25); CARBON DIOXIDE 29.1 mEq/L (21.0-31.0); CHLORIDE 103 mEq/L (98-107); CREATININE - SERUM 0.7 mg/dL (0.6-1.2); GFR AFRICAN-AMERICAN > 60.0 ml/min (>90); GFR NON AFRICAN-AMERICAN > 60.0 ml/min; GLUCOSE 165 mg/dL (70-105); POTASSIUM SERUM 4.5 mEq/L (3.5-5.1); SODIUM SERUM 135 mEq/L (136-145)
--- NOTE | 2017-08-21 22:12 | Progress Notes ---
DATE: 08/21/2017 SUBJECTIVE: The patient was seen in her room, lying in a bed. The patient is asleep, but she is arousable. Denies any pain or discomfort. OBJECTIVE: GENERAL: The patient appears to be comfortable and in no acute distress. VITAL SIGNS: Temperature 97, heart rate of 80, blood pressure 130/66, respiratory rate of 18 and 97% on room air. HEENT: Head is atraumatic and normocephalic. Eyes: Bilateral conjunctivae are clear. Bilateral pupils are equally round and reactive. NECK: Supple. No JVD. CARDIOVASCULAR: S1 and S2 without murmur. PULMONARY: Clear to auscultation. GASTROINTESTINAL: Soft and nontender without guarding. Positive bowel sounds. MUSCULOSKELETAL: No clubbing, no cyanosis noted. ASSESSMENT: 1. Diabetes mellitus, uncontrolled. 2. Major depression disorder. 3. Anxiety. PLAN: We will continue to monitor the patient's electrolytes. We will also continue to monitor patient's blood glucose and also going to monitor the patient's nutritional status. Treatment plans were discussed with the patient's nurse. Treatment plans were discussed with Dr. Saini. JOB# [id number]
[2017-08-22] MEDS: INSULIN ASPART SLIDING SCALE 100 UNITS/ML UNIT SUBQ SCH ×4 (07:30→22:58)
[2017-08-22] MEDS: Lactobacillus Rhamnosus GG 15 Billion CFU CAP.SPRINK PO SCH (10:31)
[2017-08-22] MEDS: Escitalopram Oxalate 5 mg Tab PO SCH (10:32)
--- NOTE | 2017-08-22 10:38 | General Progress Note ---
Subjective - Review of Systems Events since last encounter: patient awake denies pain in no distress Objective - Results Result Diagrams: 08/21/17 14:42 08/21/17 14:42 Recent Labs: Laboratory Last Values WBC 6.1 Th/cmm (4.8-10.8) 08/21/17 14:42 RBC 4.76 Mil/cmm (3.80-5.10) 08/21/17 14:42 Hgb 14.1 gm/dL (12-16) 08/21/17 14:42 Hct 43.1 % (41.0-60) 08/21/17 14:42 MCV 90.5 fl (81-100) 08/21/17 14:42 MCH 29.7 pg (27.0-31.0) 08/21/17 14:42 MCHC Differential 32.8 pg (28.0-36.0) 08/21/17 14:42 RDW 14.5 % (11.5-20.0) 08/21/17 14:42 Plt Count 131 Th/cmm (150-400) L 08/21/17 14:42 MPV 9.3 fl 08/21/17 14:42 Neutrophils % 67.7 % (40.0-80.0) 08/21/17 14:42 Lymphocytes % 22.5 % (20.0-50.0) 08/21/17 14:42 Monocytes % 8.0 % (2.0-10.0) 08/21/17 14:42 Eosinophils % 1.6 % (0.0-5.0) 08/21/17 14:42 Basophils % 0.2 % (0.0-2.0) 08/21/17 14:42 PT 11.2 SECONDS (9.5-11.5) 08/03/17 12:40 INR 1.08 (0.5-1.4) 08/03/17 12:40 Sodium 135 mEq/L (136-145) L 08/21/17 14:42 Potassium 4.5 mEq/L (3.5-5.1) 08/21/17 14:42 Chloride 103 mEq/L (98-107) 08/21/17 14:42 Carbon Dioxide 29.1 mEq/L (21.0-31.0) 08/21/17 14:42 Anion Gap 7.4 (7.0-16.0) 08/21/17 14:42 BUN 26 mg/dL (7-25) H 08/21/17 14:42 Creatinine 0.7 mg/dL (0.6-1.2) 08/21/17 14:42 Est GFR ( Amer) > 60.0 ml/min (>90) 08/21/17 14:42 Est GFR (Non-Af Amer) > 60.0 ml/min 08/21/17 14:42 BUN/Creatinine Ratio 37.1 08/21/17 14:42 Glucose 165 mg/dL (70-105) H 08/21/17 14:42 POC Glucose 264 MG/DL (70 - 105) H 08/21/17 20:37 Hemoglobin A1c % 12.3 % (4.0-6.0) H 08/03/17 12:40 Calcium 9.0 mg/dL (8.6-10.3) 08/21/17 14:42 Magnesium 1.6 mg/dL (1.9-2.7) L 08/04/17 04:30 Total Bilirubin 1.0 mg/dL (0.3-1.0) 08/03/17 12:40 AST 54 U/L (13-39) H 08/03/17 12:40 ALT 67 U/L (7-52) H 08/03/17 12:40 Alkaline Phosphatase 171 U/L (34-104) H 08/03/17 12:40 Creatine Kinase 55 U/L (30-223) 08/03/17 12:40 Troponin I < 0.01 ng/mL (0.01-0.05) L 08/03/17 12:40 B-Natriuretic Peptide 38.1 pg/mL (5.0-100.0) 08/03/17 12:40 Total Protein 8.2 gm/dL (6.0-8.3) 08/03/17 12:40 Albumin 4.3 gm/dL (3.7-5.3) 08/03/17 12:40 Globulin 3.9 gm/dL 08/03/17 12:40 Albumin/Globulin Ratio 1.1 (1.0-1.8) 08/03/17 12:40 Triglycerides 113 mg/dL (<150) 08/04/17 04:30 Cholesterol 103 mg/dL (<200) 08/04/17 04:30 LDL Cholesterol Direct 85 mg/dL (75-193) 08/04/17 04:30 HDL Cholesterol 26 mg/dL (23-92) 08/04/17 04:30 Amylase 72 U/L (29-103) 08/03/17 12:40 Lipase 97 U/L (11-82) H 08/03/17 12:40 TSH 1.17 uIU/ml (0.34-5.60) 08/04/17 04:30 Serum , Qual NEGATIVE (NEGATIVE) 08/03/17 12:22 Urine Source CLEAN C 08/03/17 20:25 Urine Color YELLOW 08/03/17 20:25 Urine Clarity HAZY (CLEAR) 08/03/17 20:25 Urine pH 5.0 (4.6 - 8.0) 08/03/17 20:25 Ur Specific [place] 1.025 (1.005-1.030) 08/03/17 20:25 Urine Protein 100 mg/dL (NEGATIVE) H 08/03/17 20:25 Urine Glucose (UA) >=1000 mg/dL (NEGATIVE) H 08/03/17 20:25 Urine Ketones NEGATIVE mg/dL (NEGATIVE) 08/03/17 20:25 Urine Blood TRACE (NEGATIVE) 08/03/17 20:25 Urine Nitrate POSITIVE (NEGATIVE) H 08/03/17 20:25 Urine Bilirubin NEGATIVE (NEGATIVE) 08/03/17 20:25 Urine Urobilinogen 0.2 E.U./dL (0.2 - 1.0) 08/03/17 20:25 Ur Leukocyte Esterase NEGATIVE (NEGATIVE) 08/03/17 20:25 Urine RBC 0-2 /hpf (0-5) 08/03/17 20:25 Urine WBC 10-25 /hpf (0-5) H 08/03/17 20:25 Ur Epithelial Cells MODERATE /lpf (FEW) 08/03/17 20:25 Urine Bacteria MANY /hpf (NONE SEEN) 08/03/17 20:25 Urine Opiates Screen NEGATIVE (NEGATIVE) 08/03/17 20:25 Urine Methadone Screen NEGATIVE (NEGATIVE) 08/03/17 20:25 Ur Barbiturates Screen NEGATIVE (NEGATIVE) 08/03/17 20:25 Ur Tricyclics Screen NEGATIVE (NEGATIVE) 08/03/17 20:25 Ur Phencyclidine Scrn NEGATIVE (NEGATIVE) 08/03/17 20:25 Amphetamines Screen NEGATIVE (NEGATIVE) 08/03/17 20:25 U Methamphetamines Scrn NEGATIVE (NEGATIVE) 08/03/17 20:25 U Benzodiazepines Scrn NEGATIVE (NEGATIVE) 08/03/17 20:25 U Cocaine Metab Screen NEGATIVE (NEGATIVE) 08/03/17 20:25 U Cannabinoids Screen NEGATIVE (NEGATIVE) 08/03/17 20:25 Serum Ketones SMALL (NEGATIVE) H 08/03/17 12:40 - Physical Exam Vitals and I&O: Vital Signs Temp 98 F 08/22/17 04:00 Pulse 72 08/22/17 04:00 Resp 18 08/22/17 04:00 BP 134/56 08/22/17 04:00 Pulse Ox 97 08/22/17 04:00 Intake & Output 08/21/17 08/22/17 08/22/17 18:59 06:59 18:59 Intake Total 1000 360 Balance 1000 360 Weight (lbs) 53.07 kg 52.617 kg Intake: Oral 1000 360 Other: # Voids 5 3 # Bowel Movements 1 Active Medications: Current Medications Escitalopram Oxalate (Lexapro) 10 mg PO DAILY [facility] PRN Reason: Protocol Stop: 10/05/17 08:59 Last Admin: 08/22/17 10:32 Dose: Not Given Sodium Chloride (Nacl 0.45%) 1,000 mls @ 150 mls/hr IV .Q6H40M [facility] Stop: 10/02/17 17:14 Last Infusion: 08/04/17 22:00 Dose: Infused Insulin Aspart (Novolog Insulin Sliding Scale) 0 units SUBQ ACHS [facility] PRN Reason: Protocol Stop: 10/03/17 07:29 Last Admin: 08/22/17 07:30 Dose: Not Given Lactobacillus Rhamnosus (Culturelle 15b) 1 each PO DAILY [facility] Stop: 10/15/17 08:59 Last Admin: 08/22/17 10:31 Dose: Not Given Levofloxacin (Levaquin) 500 mg PO DAILY [facility] Stop: 10/14/17 08:59 Last Admin: 08/22/17 10:30 Dose: 500 mg Metformin HCl (Glucophage) 1,000 mg PO BID [facility] Stop: 10/03/17 08:59 Last Admin: 08/22/17 10:30 Dose: 1,000 mg Miscellaneous (Probiotic Screen) 1 ea [facility] PRN PRN PRN Reason: PROTOCOL Stop: 10/14/17 10:29 Mupirocin (Bactroban Oint) 1 appl TP BID [facility] Stop: 10/03/17 16:59 Last Admin: 08/22/17 10:30 Dose: Not Given General: No acute distress HEENT: Atraumatic Neck: Supple - Procedures Procedures: Procedures Procedure Code Date ELECTROCARDIOGRAM 89.52 05/25/95 INJECT/INFUSE NEC 99.29 12/02/12 NASAL SURGERY PROCEDURE 34309 12/05/01 REMOVE NASAL PACKING 97.32 12/05/01 THER/PROPH/DIAG INJ SC/IM 80291 12/02/12 Assessment/Plan - Problem List Patient Problems: All Active Problems DIZZINESS WITH ELEVATED BLOOD GLUCOSE (Acute) Blood glucose elevated (Acute) R73.9 Diabetes mellitus type 2, uncontrolled, without complications (Acute) E11.65 - Assessment Assessment: Current Active Problems Problem Status Onset DIZZINESS WITH ELEVATED BLOOD GLUCOSE Acute - Plan Plan: continue current management Nutritional Asmnt/Malnutr-PDOC - Dietary Evaluation Malnutrition Findings (Please click <Entered> for more info): Nutritional Asmnt/Malnutrition Start: 08/04/17 15: 39 Text: Status: Complete Freq: Document 08/04/17 15:40 HENG (Rec: 08/04/17 16:02 HENG [email or web address]) Nutritional Asmnt/Malnutrition Patient General Information Nutritional Screening High Risk Consult Diagnosis DKA, uncontrolled DM Pertinent Medical Hx/Surgical Hx DM Subjective Information Consult received for BG>600. Pt seen lying in bed, awake and alert during the time of visit, no teeth noted. Pt complained did not like baby food, stated she is able to chew, ground diet ok. Pt stated like milk shake, eat everything, "don't care blood sugar". Nutrition education attempted, pt wanted RD to get out. Per notes, PO intake 75% . Current Diet Order/ Nutrition Support CCHO 60gm pureed Pertinent Medications Nacl 0.45%, glucopage, novolog Pertinent Labs 08/04 Na 140, K 3.6, Cl 109, BUN 34, Cr 0.7, Glucose 116, POC 90-475, Mg 1.6 08/03 A1c 12.3, glucose 641 Nutritional Hx/Data Height 1.5 m Height (Calculated Centimeters) 149.9 Current Weight (lbs) 45.359 kg Weight (Calculated Kilograms) 45.4 Weight (Calculated Grams) 67693.2 [place] Body Weight 98 % [place] Body Weight 102 Body Mass Index (BMI) 20.2 Weight Status Approriate GI Symptoms GI Symptoms None Last BM none Difficult in: None Usual diet at home Per pt 3 meals and 1 snack daily, no diet restriction, take DM medicine. Skin Integrity/Comment: intact Estimated Nutritional Goals BEE in Kcals: Using Current wt Calories/Kcals/Kg 25-30 Kcals Calculated 6019-8706 Protein: Using Current wt Protein g/k-1.2 Protein Calculated 46-55 Fluid: ml 2246-5663 Nutritional Problem 1. Problem Problem altered nutrition related lab values Etiology hx of DM, possible imbalanced carbohydrate intake Signs/Symptoms: A1c 12.3, glucose 641 Malnutrition Alert Protein-Calorie Malnutrition N/A Is there a minimum of two criteria No selected? Query Text:Check all the applicable criteria. A minimum of two criteria are recommended for diagnosis of either severe or non-severe malnutrition. Intervention/Recommendation Comments 1. Continue with [facility] diet. Notified RN, RN will talk to MD for diet texture change. 2. Monitor PO intake, wt weekly, labs and skin integrity 3. F/U as moderate risk in 3-5 days, 08/07-08/09 Expected Outcomes/Goals Expected Outcomes/Goals 1. PO intake to meet at least 75% of nutritional needs with tolerance. 2. Wt stability, skin to remain intact, labs to improve
[2017-08-23] MEDS: INSULIN ASPART SLIDING SCALE 100 UNITS/ML UNIT SUBQ SCH ×4 (08:10→21:19)
[2017-08-23] MEDS: Lactobacillus Rhamnosus GG 15 Billion CFU CAP.SPRINK PO SCH (09:44)
[2017-08-23] MEDS: Escitalopram Oxalate 5 mg Tab PO SCH (09:44)
--- NOTE | 2017-08-23 11:33 | Internal Medicine Prog Note ---
Internal Medicine Subjective - Subjective Service Date: 08/23/17 Patient is:: awake Per staff patient has:: no adverse event, tolerating meds Internal Medicine Objective - Results Result Diagrams: 08/21/17 14:42 08/21/17 14:42 Recent Labs: Laboratory Last Values WBC 6.1 Th/cmm (4.8-10.8) 08/21/17 14:42 RBC 4.76 Mil/cmm (3.80-5.10) 08/21/17 14:42 Hgb 14.1 gm/dL (12-16) 08/21/17 14:42 Hct 43.1 % (41.0-60) 08/21/17 14:42 MCV 90.5 fl (81-100) 08/21/17 14:42 MCH 29.7 pg (27.0-31.0) 08/21/17 14:42 MCHC Differential 32.8 pg (28.0-36.0) 08/21/17 14:42 RDW 14.5 % (11.5-20.0) 08/21/17 14:42 Plt Count 131 Th/cmm (150-400) L 08/21/17 14:42 MPV 9.3 fl 08/21/17 14:42 Neutrophils % 67.7 % (40.0-80.0) 08/21/17 14:42 Lymphocytes % 22.5 % (20.0-50.0) 08/21/17 14:42 Monocytes % 8.0 % (2.0-10.0) 08/21/17 14:42 Eosinophils % 1.6 % (0.0-5.0) 08/21/17 14:42 Basophils % 0.2 % (0.0-2.0) 08/21/17 14:42 PT 11.2 SECONDS (9.5-11.5) 08/03/17 12:40 INR 1.08 (0.5-1.4) 08/03/17 12:40 Sodium 135 mEq/L (136-145) L 08/21/17 14:42 Potassium 4.5 mEq/L (3.5-5.1) 08/21/17 14:42 Chloride 103 mEq/L (98-107) 08/21/17 14:42 Carbon Dioxide 29.1 mEq/L (21.0-31.0) 08/21/17 14:42 Anion Gap 7.4 (7.0-16.0) 08/21/17 14:42 BUN 26 mg/dL (7-25) H 08/21/17 14:42 Creatinine 0.7 mg/dL (0.6-1.2) 08/21/17 14:42 Est GFR ( Amer) > 60.0 ml/min (>90) 08/21/17 14:42 Est GFR (Non-Af Amer) > 60.0 ml/min 08/21/17 14:42 BUN/Creatinine Ratio 37.1 08/21/17 14:42 Glucose 165 mg/dL (70-105) H 08/21/17 14:42 POC Glucose 286 MG/DL (70 - 105) H 08/22/17 22:18 Hemoglobin A1c % 12.3 % (4.0-6.0) H 08/03/17 12:40 Calcium 9.0 mg/dL (8.6-10.3) 08/21/17 14:42 Magnesium 1.6 mg/dL (1.9-2.7) L 08/04/17 04:30 Total Bilirubin 1.0 mg/dL (0.3-1.0) 08/03/17 12:40 AST 54 U/L (13-39) H 08/03/17 12:40 ALT 67 U/L (7-52) H 08/03/17 12:40 Alkaline Phosphatase 171 U/L (34-104) H 08/03/17 12:40 Creatine Kinase 55 U/L (30-223) 08/03/17 12:40 Troponin I < 0.01 ng/mL (0.01-0.05) L 08/03/17 12:40 B-Natriuretic Peptide 38.1 pg/mL (5.0-100.0) 08/03/17 12:40 Total Protein 8.2 gm/dL (6.0-8.3) 08/03/17 12:40 Albumin 4.3 gm/dL (3.7-5.3) 08/03/17 12:40 Globulin 3.9 gm/dL 08/03/17 12:40 Albumin/Globulin Ratio 1.1 (1.0-1.8) 08/03/17 12:40 Triglycerides 113 mg/dL (<150) 08/04/17 04:30 Cholesterol 103 mg/dL (<200) 08/04/17 04:30 LDL Cholesterol Direct 85 mg/dL (75-193) 08/04/17 04:30 HDL Cholesterol 26 mg/dL (23-92) 08/04/17 04:30 Amylase 72 U/L (29-103) 08/03/17 12:40 Lipase 97 U/L (11-82) H 08/03/17 12:40 TSH 1.17 uIU/ml (0.34-5.60) 08/04/17 04:30 Serum , Qual NEGATIVE (NEGATIVE) 08/03/17 12:22 Urine Source CLEAN C 08/03/17 20:25 Urine Color YELLOW 08/03/17 20:25 Urine Clarity HAZY (CLEAR) 08/03/17 20:25 Urine pH 5.0 (4.6 - 8.0) 08/03/17 20:25 Ur Specific [place] 1.025 (1.005-1.030) 08/03/17 20:25 Urine Protein 100 mg/dL (NEGATIVE) H 08/03/17 20:25 Urine Glucose (UA) >=1000 mg/dL (NEGATIVE) H 08/03/17 20:25 Urine Ketones NEGATIVE mg/dL (NEGATIVE) 08/03/17 20:25 Urine Blood TRACE (NEGATIVE) 08/03/17 20:25 Urine Nitrate POSITIVE (NEGATIVE) H 08/03/17 20:25 Urine Bilirubin NEGATIVE (NEGATIVE) 08/03/17 20:25 Urine Urobilinogen 0.2 E.U./dL (0.2 - 1.0) 08/03/17 20:25 Ur Leukocyte Esterase NEGATIVE (NEGATIVE) 08/03/17 20:25 Urine RBC 0-2 /hpf (0-5) 08/03/17 20:25 Urine WBC 10-25 /hpf (0-5) H 08/03/17 20:25 Ur Epithelial Cells MODERATE /lpf (FEW) 08/03/17 20:25 Urine Bacteria MANY /hpf (NONE SEEN) 08/03/17 20:25 Urine Opiates Screen NEGATIVE (NEGATIVE) 08/03/17 20:25 Urine Methadone Screen NEGATIVE (NEGATIVE) 08/03/17 20:25 Ur Barbiturates Screen NEGATIVE (NEGATIVE) 08/03/17 20:25 Ur Tricyclics Screen NEGATIVE (NEGATIVE) 08/03/17 20:25 Ur Phencyclidine Scrn NEGATIVE (NEGATIVE) 08/03/17 20:25 Amphetamines Screen NEGATIVE (NEGATIVE) 08/03/17 20:25 U Methamphetamines Scrn NEGATIVE (NEGATIVE) 08/03/17 20:25 U Benzodiazepines Scrn NEGATIVE (NEGATIVE) 08/03/17 20:25 U Cocaine Metab Screen NEGATIVE (NEGATIVE) 08/03/17 20:25 U Cannabinoids Screen NEGATIVE (NEGATIVE) 08/03/17 20:25 Serum Ketones SMALL (NEGATIVE) H 08/03/17 12:40 - Physical Exam Vitals and I&O: Vital Signs Temp 97.1 F 08/23/17 08:00 Pulse 52 08/23/17 08:00 Resp 17 08/23/17 08:00 BP 150/62 08/23/17 08:00 Pulse Ox 100 08/23/17 08:00 Intake & Output 08/22/17 08/23/17 08/23/17 18:59 06:59 18:59 Intake Total 1600 480 Output Total 0 Balance 1600 480 Weight (lbs) 116 lb 118 lb Intake: Oral 1600 480 Output: Stool 0 Other: # Voids 5 3 # Bowel Movements 1 Active Medications: Current Medications Escitalopram Oxalate (Lexapro) 10 mg PO DAILY WINSTON PRN Reason: Protocol Stop: 10/05/17 08:59 Last Admin: 08/23/17 09:44 Dose: 10 mg Sodium Chloride (Nacl 0.45%) 1,000 mls @ 150 mls/hr IV .Q6H40M [facility] Stop: 10/02/17 17:14 Last Infusion: 08/04/17 22:00 Dose: Infused Insulin Aspart (Novolog Insulin Sliding Scale) 0 units SUBQ ACHS WINSTON PRN Reason: Protocol Stop: 10/03/17 07:29 Last Admin: 08/23/17 08:10 Dose: Not Given Lactobacillus Rhamnosus (Culturelle 15b) 1 each PO DAILY WINSTON Stop: 10/15/17 08:59 Last Admin: 08/23/17 09:44 Dose: 1 each Metformin HCl (Glucophage) 1,000 mg PO BID WINSTON Stop: 10/03/17 08:59 Last Admin: 08/23/17 09:44 Dose: 1,000 mg Miscellaneous (Probiotic Screen) 1 ea MC PRN PRN PRN Reason: PROTOCOL Stop: 10/14/17 10:29 Mupirocin (Bactroban Oint) 1 appl TP BID WINSTON Stop: 10/03/17 16:59 Last Admin: 08/23/17 09:50 Dose: 1 appl HEENT: NC/AT, PERRLA Neck: Supple Lungs: CTAB Abdomen: positive bowel sound Neurological: alert - Procedures Procedures: Procedures Procedure Code Date ELECTROCARDIOGRAM 89.52 05/25/95 INJECT/INFUSE NEC 99.29 12/02/12 NASAL SURGERY PROCEDURE 77715 12/05/01 REMOVE NASAL PACKING 97.32 12/05/01 THER/PROPH/DIAG INJ SC/IM 52074 12/02/12 Internal Medicine Assmt/Plan - Assessment Assessment: DIZZINESS WITH ELEVATED BLOOD GLUCOSE (Acute) Blood glucose elevated (Acute) R73.9 Diabetes mellitus type 2, uncontrolled, without complications (Acute) E11.65 - Plan Plan: placement issues follow up labs in am empiric ivabx monitor glucose cpm Nutritional Asmnt/Malnutr-PDOC - Dietary Evaluation Malnutrition Findings (Please click <Entered> for more info): Nutritional Asmnt/Malnutrition Start: 08/04/17 15: 39 Text: Status: Complete Freq: Document 08/04/17 15:40 LCHENG (Rec: 08/04/17 16:02 [email or web address]) Nutritional Asmnt/Malnutrition Patient General Information Nutritional Screening High Risk Consult Diagnosis DKA, uncontrolled DM Pertinent Medical Hx/Surgical Hx DM Subjective Information Consult received for BG>600. Pt seen lying in bed, awake and alert during the time of visit, no teeth noted. Pt complained did not like baby food, stated she is able to chew, ground diet ok. Pt stated like milk shake, eat everything, "don't care blood sugar". Nutrition education attempted, pt wanted RD to get out. Per notes, PO intake 75% . Current Diet Order/ Nutrition Support CCHO 60gm pureed Pertinent Medications Nacl 0.45%, glucopage, novolog Pertinent Labs 08/04 Na 140, K 3.6, Cl 109, BUN 34, Cr 0.7, Glucose 116, POC 90-475, Mg 1.6 08/03 A1c 12.3, glucose 641 Nutritional Hx/Data Height 4 ft 11 in Height (Calculated Centimeters) 149.9 Current Weight (lbs) 100 lb Weight (Calculated Kilograms) 45.4 Weight (Calculated Grams) 80421.2 [place] Body Weight 98 % [place] Body Weight 102 Body Mass Index (BMI) 20.2 Weight Status Approriate GI Symptoms GI Symptoms None Last BM none Difficult in: None Usual diet at home Per pt 3 meals and 1 snack daily, no diet restriction, take DM medicine. Skin Integrity/Comment: intact Estimated Nutritional Goals BEE in Kcals: Using Current wt Calories/Kcals/Kg 25-30 Kcals Calculated 8701-1837 Protein: Using Current wt Protein g/k-1.2 Protein Calculated 46-55 Fluid: ml 5147-9295 Nutritional Problem 1. Problem Problem altered nutrition related lab values Etiology hx of DM, possible imbalanced carbohydrate intake Signs/Symptoms: A1c 12.3, glucose 641 Malnutrition Alert Protein-Calorie Malnutrition N/A Is there a minimum of two criteria No selected? Query Text:Check all the applicable criteria. A minimum of two criteria are recommended for diagnosis of either severe or non-severe malnutrition. Intervention/Recommendation Comments 1. Continue with [facility] diet. Notified RN, RN will talk to MD for diet texture change. 2. Monitor PO intake, wt weekly, labs and skin integrity 3. F/U as moderate risk in 3-5 days, 08/07-08/09 Expected Outcomes/Goals Expected Outcomes/Goals 1. PO intake to meet at least 75% of nutritional needs with tolerance. 2. Wt stability, skin to remain intact, labs to improve
[2017-08-24] MEDS: INSULIN ASPART SLIDING SCALE 100 UNITS/ML UNIT SUBQ SCH ×4 (07:54→21:09)
[2017-08-24] MEDS: Lactobacillus Rhamnosus GG 15 Billion CFU CAP.SPRINK PO SCH (08:50)
[2017-08-24] MEDS: Escitalopram Oxalate 5 mg Tab PO SCH (08:51)
[2017-08-24 10:23] LABS: % BASOPHILS 0.5 % (0.0-2.0); % EOSINOPHILS 1.7 % (0.0-5.0); % LYMPHOCYTES 23.4 % (20.0-50.0); % MONOCYTES 8.4 % (2.0-10.0); EOSINOPHILE ABSOLUTE 0.1 Th/cmm (0.1-0.4); HEMATOCRIT 41.9 % (41.0-60); MEAN CELL VOLUME 90.1 fl (81-100); MEAN CORPUSCULAR HGB CONC 33.3 pg (28.0-36.0); MEAN PLATELET VOLUME 9.7 fl; MONOCYTE ABSOLUTE 0.4 Th/cmm (0.3-1.0); NEUTROPHILE ABSOLUTE 2.9 Th/cmm (1.8-8.0); RED BLOOD COUNT 4.66 Mil/cmm (3.80-5.10); RED CELL DISTRIBUTION WIDTH 14.7 % (11.5-20.0)
[2017-08-24 10:30] LABS: PLATELET COUNT 102 Th/cmm (150-400); WHITE BLOOD COUNT 4.4 Th/cmm (4.8-10.8)
[2017-08-24 10:41] LABS: ANION GAP 9.5 (7.0-16.0); BUN - UREA NITROGEN 21 mg/dL (7-25); CALCIUM SERUM 9.2 mg/dL (8.6-10.3); CARBON DIOXIDE 29.5 mEq/L (21.0-31.0); CHLORIDE 101 mEq/L (98-107); CREATININE - SERUM 0.6 mg/dL (0.6-1.2); GFR AFRICAN-AMERICAN > 60.0 ml/min (>90); GFR NON AFRICAN-AMERICAN > 60.0 ml/min; GLUCOSE 243 mg/dL (70-105); SODIUM SERUM 136 mEq/L (136-145)
--- NOTE | 2017-08-24 16:09 | General Progress Note ---
Subjective - Review of Systems Events since last encounter: no distress Objective - Results Result Diagrams: 08/24/17 10:10 08/24/17 10:10 Recent Labs: Laboratory Last Values WBC 4.4 Th/cmm (4.8-10.8) L D 08/24/17 10:10 RBC 4.66 Mil/cmm (3.80-5.10) 08/24/17 10:10 Hgb 14.0 gm/dL (12-16) 08/24/17 10:10 Hct 41.9 % (41.0-60) 08/24/17 10:10 MCV 90.1 fl (81-100) 08/24/17 10:10 MCH 30.0 pg (27.0-31.0) 08/24/17 10:10 MCHC Differential 33.3 pg (28.0-36.0) 08/24/17 10:10 RDW 14.7 % (11.5-20.0) 08/24/17 10:10 Plt Count 102 Th/cmm (150-400) L D 08/24/17 10:10 MPV 9.7 fl 08/24/17 10:10 Neutrophils % 66.0 % (40.0-80.0) 08/24/17 10:10 Lymphocytes % 23.4 % (20.0-50.0) 08/24/17 10:10 Monocytes % 8.4 % (2.0-10.0) 08/24/17 10:10 Eosinophils % 1.7 % (0.0-5.0) 08/24/17 10:10 Basophils % 0.5 % (0.0-2.0) 08/24/17 10:10 PT 11.2 SECONDS (9.5-11.5) 08/03/17 12:40 INR 1.08 (0.5-1.4) 08/03/17 12:40 Sodium 136 mEq/L (136-145) 08/24/17 10:10 Potassium 4.0 mEq/L (3.5-5.1) 08/24/17 10:10 Chloride 101 mEq/L (98-107) 08/24/17 10:10 Carbon Dioxide 29.5 mEq/L (21.0-31.0) 08/24/17 10:10 Anion Gap 9.5 (7.0-16.0) 08/24/17 10:10 BUN 21 mg/dL (7-25) 08/24/17 10:10 Creatinine 0.6 mg/dL (0.6-1.2) 08/24/17 10:10 Est GFR ( Amer) > 60.0 ml/min (>90) 08/24/17 10:10 Est GFR (Non-Af Amer) > 60.0 ml/min 08/24/17 10:10 BUN/Creatinine Ratio 35.0 08/24/17 10:10 Glucose 243 mg/dL (70-105) H 08/24/17 10:10 POC Glucose 303 MG/DL (70 - 105) H 08/24/17 12:27 Hemoglobin A1c % 12.3 % (4.0-6.0) H 08/03/17 12:40 Calcium 9.2 mg/dL (8.6-10.3) 08/24/17 10:10 Magnesium 1.6 mg/dL (1.9-2.7) L 08/04/17 04:30 Total Bilirubin 1.0 mg/dL (0.3-1.0) 08/03/17 12:40 AST 54 U/L (13-39) H 08/03/17 12:40 ALT 67 U/L (7-52) H 08/03/17 12:40 Alkaline Phosphatase 171 U/L (34-104) H 08/03/17 12:40 Creatine Kinase 55 U/L (30-223) 08/03/17 12:40 Troponin I < 0.01 ng/mL (0.01-0.05) L 08/03/17 12:40 B-Natriuretic Peptide 38.1 pg/mL (5.0-100.0) 08/03/17 12:40 Total Protein 8.2 gm/dL (6.0-8.3) 08/03/17 12:40 Albumin 4.3 gm/dL (3.7-5.3) 08/03/17 12:40 Globulin 3.9 gm/dL 08/03/17 12:40 Albumin/Globulin Ratio 1.1 (1.0-1.8) 08/03/17 12:40 Triglycerides 113 mg/dL (<150) 08/04/17 04:30 Cholesterol 103 mg/dL (<200) 08/04/17 04:30 LDL Cholesterol Direct 85 mg/dL (75-193) 08/04/17 04:30 HDL Cholesterol 26 mg/dL (23-92) 08/04/17 04:30 Amylase 72 U/L (29-103) 08/03/17 12:40 Lipase 97 U/L (11-82) H 08/03/17 12:40 TSH 1.17 uIU/ml (0.34-5.60) 08/04/17 04:30 Serum , Qual NEGATIVE (NEGATIVE) 08/03/17 12:22 Urine Source CLEAN C 08/03/17 20:25 Urine Color YELLOW 08/03/17 20:25 Urine Clarity HAZY (CLEAR) 08/03/17 20:25 Urine pH 5.0 (4.6 - 8.0) 08/03/17 20:25 Ur Specific [place] 1.025 (1.005-1.030) 08/03/17 20:25 Urine Protein 100 mg/dL (NEGATIVE) H 08/03/17 20:25 Urine Glucose (UA) >=1000 mg/dL (NEGATIVE) H 08/03/17 20:25 Urine Ketones NEGATIVE mg/dL (NEGATIVE) 08/03/17 20:25 Urine Blood TRACE (NEGATIVE) 08/03/17 20:25 Urine Nitrate POSITIVE (NEGATIVE) H 08/03/17 20:25 Urine Bilirubin NEGATIVE (NEGATIVE) 08/03/17 20:25 Urine Urobilinogen 0.2 E.U./dL (0.2 - 1.0) 08/03/17 20:25 Ur Leukocyte Esterase NEGATIVE (NEGATIVE) 08/03/17 20:25 Urine RBC 0-2 /hpf (0-5) 08/03/17 20:25 Urine WBC 10-25 /hpf (0-5) H 08/03/17 20:25 Ur Epithelial Cells MODERATE /lpf (FEW) 08/03/17 20:25 Urine Bacteria MANY /hpf (NONE SEEN) 08/03/17 20:25 Urine Opiates Screen NEGATIVE (NEGATIVE) 08/03/17 20:25 Urine Methadone Screen NEGATIVE (NEGATIVE) 08/03/17 20:25 Ur Barbiturates Screen NEGATIVE (NEGATIVE) 08/03/17 20:25 Ur Tricyclics Screen NEGATIVE (NEGATIVE) 08/03/17 20:25 Ur Phencyclidine Scrn NEGATIVE (NEGATIVE) 08/03/17 20:25 Amphetamines Screen NEGATIVE (NEGATIVE) 08/03/17 20:25 U Methamphetamines Scrn NEGATIVE (NEGATIVE) 08/03/17 20:25 U Benzodiazepines Scrn NEGATIVE (NEGATIVE) 08/03/17 20:25 U Cocaine Metab Screen NEGATIVE (NEGATIVE) 08/03/17 20:25 U Cannabinoids Screen NEGATIVE (NEGATIVE) 08/03/17 20:25 Serum Ketones SMALL (NEGATIVE) H 08/03/17 12:40 - Physical Exam Vitals and I&O: Vital Signs Temp 97.4 F 08/24/17 00:00 Pulse 64 08/24/17 00:00 Resp 20 08/24/17 00:00 BP 145/64 08/24/17 00:00 Pulse Ox 95 08/24/17 00:00 Intake & Output 08/23/17 08/24/17 08/24/17 18:59 06:59 18:59 Intake Total 1200 450 Balance 1200 450 Weight (lbs) 53.524 kg 54.431 kg Intake: Oral 1200 450 Other: # Voids 3 3 # Bowel Movements 1 Stool Characteristics Soft Formed Active Medications: Current Medications Escitalopram Oxalate (Lexapro) 10 mg PO DAILY WINSTON PRN Reason: Protocol Stop: 10/05/17 08:59 Last Admin: 08/24/17 08:51 Dose: 10 mg Insulin Aspart (Novolog Insulin Sliding Scale) 0 units SUBQ ACHS WINSTON PRN Reason: Protocol Stop: 10/03/17 07:29 Last Admin: 08/24/17 12:36 Dose: 10 units Lactobacillus Rhamnosus (Culturelle 15b) 1 each PO DAILY WINSTON Stop: 10/15/17 08:59 Last Admin: 08/24/17 08:50 Dose: 1 each Metformin HCl (Glucophage) 1,000 mg PO BID WINSTON Stop: 10/03/17 08:59 Last Admin: 08/24/17 08:50 Dose: 1,000 mg Miscellaneous (Probiotic Screen) 1 ea MC PRN PRN PRN Reason: PROTOCOL Stop: 10/14/17 10:29 General: No acute distress HEENT: Atraumatic Neck: Supple - Procedures Procedures: Procedures Procedure Code Date ELECTROCARDIOGRAM 89.52 05/25/95 INJECT/INFUSE NEC 99.29 12/02/12 NASAL SURGERY PROCEDURE 05303 12/05/01 REMOVE NASAL PACKING 97.32 12/05/01 THER/PROPH/DIAG INJ SC/IM 19124 12/02/12 Assessment/Plan - Problem List Patient Problems: All Active Problems DIZZINESS WITH ELEVATED BLOOD GLUCOSE (Acute) Blood glucose elevated (Acute) R73.9 Diabetes mellitus type 2, uncontrolled, without complications (Acute) E11.65 - Assessment Assessment: Current Active Problems Problem Status Onset DIZZINESS WITH ELEVATED BLOOD GLUCOSE Acute - Plan Plan: continue current management Nutritional Asmnt/Malnutr-PDOC - Dietary Evaluation Malnutrition Findings (Please click <Entered> for more info): Nutritional Asmnt/Malnutrition Start: 08/04/17 15: 39 Text: Status: Complete Freq: Document 08/04/17 15:40 MINAL (Rec: 08/04/17 16:02 MINAL [email or web address]) Nutritional Asmnt/Malnutrition Patient General Information Nutritional Screening High Risk Consult Diagnosis DKA, uncontrolled DM Pertinent Medical Hx/Surgical Hx DM Subjective Information Consult received for BG>600. Pt seen lying in bed, awake and alert during the time of visit, no teeth noted. Pt complained did not like baby food, stated she is able to chew, ground diet ok. Pt stated like milk shake, eat everything, "don't care blood sugar". Nutrition education attempted, pt wanted RD to get out. Per notes, PO intake 75% . Current Diet Order/ Nutrition Support CCHO 60gm pureed Pertinent Medications Nacl 0.45%, glucopage, novolog Pertinent Labs 08/04 Na 140, K 3.6, Cl 109, BUN 34, Cr 0.7, Glucose 116, POC 90-475, Mg 1.6 08/03 A1c 12.3, glucose 641 Nutritional Hx/Data Height 1.5 m Height (Calculated Centimeters) 149.9 Current Weight (lbs) 45.359 kg Weight (Calculated Kilograms) 45.4 Weight (Calculated Grams) [address]174.2 [place] Body Weight 98 % [place] Body Weight 102 Body Mass Index (BMI) 20.2 Weight Status Approriate GI Symptoms GI Symptoms None Last BM none Difficult in: None Usual diet at home Per pt 3 meals and 1 snack daily, no diet restriction, take DM medicine. Skin Integrity/Comment: intact Estimated Nutritional Goals BEE in Kcals: Using Current wt Calories/Kcals/Kg 25-30 Kcals Calculated 9819-2034 Protein: Using Current wt Protein g/k-1.2 Protein Calculated 46-55 Fluid: ml 6901-2355 Nutritional Problem 1. Problem Problem altered nutrition related lab values Etiology hx of DM, possible imbalanced carbohydrate intake Signs/Symptoms: A1c 12.3, glucose 641 Malnutrition Alert Protein-Calorie Malnutrition N/A Is there a minimum of two criteria No selected? Query Text:Check all the applicable criteria. A minimum of two criteria are recommended for diagnosis of either severe or non-severe malnutrition. Intervention/Recommendation Comments 1. Continue with [facility] diet. Notified RN, RN will talk to MD for diet texture change. 2. Monitor PO intake, wt weekly, labs and skin integrity 3. F/U as moderate risk in 3-5 days, 08/07-08/09 Expected Outcomes/Goals Expected Outcomes/Goals 1. PO intake to meet at least 75% of nutritional needs with tolerance. 2. Wt stability, skin to remain intact, labs to improve
[2017-08-25] MEDS: INSULIN ASPART SLIDING SCALE 100 UNITS/ML UNIT SUBQ SCH ×2 (07:54→12:06)
[2017-08-25] MEDS: Escitalopram Oxalate 5 mg Tab PO SCH (08:41)
[2017-08-25] MEDS: Lactobacillus Rhamnosus GG 15 Billion CFU CAP.SPRINK PO SCH (08:42)
--- NOTE | 2017-08-25 09:04 | General Progress Note ---
Subjective - Review of Systems Events since last encounter: patient denies pain no distress Objective - Results Result Diagrams: 08/24/17 10:10 08/24/17 10:10 Recent Labs: Laboratory Last Values WBC 4.4 Th/cmm (4.8-10.8) L D 08/24/17 10:10 RBC 4.66 Mil/cmm (3.80-5.10) 08/24/17 10:10 Hgb 14.0 gm/dL (12-16) 08/24/17 10:10 Hct 41.9 % (41.0-60) 08/24/17 10:10 MCV 90.1 fl (81-100) 08/24/17 10:10 MCH 30.0 pg (27.0-31.0) 08/24/17 10:10 MCHC Differential 33.3 pg (28.0-36.0) 08/24/17 10:10 RDW 14.7 % (11.5-20.0) 08/24/17 10:10 Plt Count 102 Th/cmm (150-400) L D 08/24/17 10:10 MPV 9.7 fl 08/24/17 10:10 Neutrophils % 66.0 % (40.0-80.0) 08/24/17 10:10 Lymphocytes % 23.4 % (20.0-50.0) 08/24/17 10:10 Monocytes % 8.4 % (2.0-10.0) 08/24/17 10:10 Eosinophils % 1.7 % (0.0-5.0) 08/24/17 10:10 Basophils % 0.5 % (0.0-2.0) 08/24/17 10:10 PT 11.2 SECONDS (9.5-11.5) 08/03/17 12:40 INR 1.08 (0.5-1.4) 08/03/17 12:40 Sodium 136 mEq/L (136-145) 08/24/17 10:10 Potassium 4.0 mEq/L (3.5-5.1) 08/24/17 10:10 Chloride 101 mEq/L (98-107) 08/24/17 10:10 Carbon Dioxide 29.5 mEq/L (21.0-31.0) 08/24/17 10:10 Anion Gap 9.5 (7.0-16.0) 08/24/17 10:10 BUN 21 mg/dL (7-25) 08/24/17 10:10 Creatinine 0.6 mg/dL (0.6-1.2) 08/24/17 10:10 Est GFR ( Amer) > 60.0 ml/min (>90) 08/24/17 10:10 Est GFR (Non-Af Amer) > 60.0 ml/min 08/24/17 10:10 BUN/Creatinine Ratio 35.0 08/24/17 10:10 Glucose 243 mg/dL (70-105) H 08/24/17 10:10 POC Glucose 145 MG/DL (70 - 105) H 08/25/17 07:48 Hemoglobin A1c % 12.3 % (4.0-6.0) H 08/03/17 12:40 Calcium 9.2 mg/dL (8.6-10.3) 08/24/17 10:10 Magnesium 1.6 mg/dL (1.9-2.7) L 08/04/17 04:30 Total Bilirubin 1.0 mg/dL (0.3-1.0) 08/03/17 12:40 AST 54 U/L (13-39) H 08/03/17 12:40 ALT 67 U/L (7-52) H 08/03/17 12:40 Alkaline Phosphatase 171 U/L (34-104) H 08/03/17 12:40 Creatine Kinase 55 U/L (30-223) 08/03/17 12:40 Troponin I < 0.01 ng/mL (0.01-0.05) L 08/03/17 12:40 B-Natriuretic Peptide 38.1 pg/mL (5.0-100.0) 08/03/17 12:40 Total Protein 8.2 gm/dL (6.0-8.3) 08/03/17 12:40 Albumin 4.3 gm/dL (3.7-5.3) 08/03/17 12:40 Globulin 3.9 gm/dL 08/03/17 12:40 Albumin/Globulin Ratio 1.1 (1.0-1.8) 08/03/17 12:40 Triglycerides 113 mg/dL (<150) 08/04/17 04:30 Cholesterol 103 mg/dL (<200) 08/04/17 04:30 LDL Cholesterol Direct 85 mg/dL (75-193) 08/04/17 04:30 HDL Cholesterol 26 mg/dL (23-92) 08/04/17 04:30 Amylase 72 U/L (29-103) 08/03/17 12:40 Lipase 97 U/L (11-82) H 08/03/17 12:40 TSH 1.17 uIU/ml (0.34-5.60) 08/04/17 04:30 Serum , Qual NEGATIVE (NEGATIVE) 08/03/17 12:22 Urine Source CLEAN C 08/03/17 20:25 Urine Color YELLOW 08/03/17 20:25 Urine Clarity HAZY (CLEAR) 08/03/17 20:25 Urine pH 5.0 (4.6 - 8.0) 08/03/17 20:25 Ur Specific [place] 1.025 (1.005-1.030) 08/03/17 20:25 Urine Protein 100 mg/dL (NEGATIVE) H 08/03/17 20:25 Urine Glucose (UA) >=1000 mg/dL (NEGATIVE) H 08/03/17 20:25 Urine Ketones NEGATIVE mg/dL (NEGATIVE) 08/03/17 20:25 Urine Blood TRACE (NEGATIVE) 08/03/17 20:25 Urine Nitrate POSITIVE (NEGATIVE) H 08/03/17 20:25 Urine Bilirubin NEGATIVE (NEGATIVE) 08/03/17 20:25 Urine Urobilinogen 0.2 E.U./dL (0.2 - 1.0) 08/03/17 20:25 Ur Leukocyte Esterase NEGATIVE (NEGATIVE) 08/03/17 20:25 Urine RBC 0-2 /hpf (0-5) 08/03/17 20:25 Urine WBC 10-25 /hpf (0-5) H 08/03/17 20:25 Ur Epithelial Cells MODERATE /lpf (FEW) 08/03/17 20:25 Urine Bacteria MANY /hpf (NONE SEEN) 08/03/17 20:25 Urine Opiates Screen NEGATIVE (NEGATIVE) 08/03/17 20:25 Urine Methadone Screen NEGATIVE (NEGATIVE) 08/03/17 20:25 Ur Barbiturates Screen NEGATIVE (NEGATIVE) 08/03/17 20:25 Ur Tricyclics Screen NEGATIVE (NEGATIVE) 08/03/17 20:25 Ur Phencyclidine Scrn NEGATIVE (NEGATIVE) 08/03/17 20:25 Amphetamines Screen NEGATIVE (NEGATIVE) 08/03/17 20:25 U Methamphetamines Scrn NEGATIVE (NEGATIVE) 08/03/17 20:25 U Benzodiazepines Scrn NEGATIVE (NEGATIVE) 08/03/17 20:25 U Cocaine Metab Screen NEGATIVE (NEGATIVE) 08/03/17 20:25 U Cannabinoids Screen NEGATIVE (NEGATIVE) 08/03/17 20:25 Serum Ketones SMALL (NEGATIVE) H 08/03/17 12:40 - Physical Exam Vitals and I&O: Vital Signs Temp 97.6 F 08/25/17 08:00 Pulse 90 08/25/17 08:00 Resp 18 08/25/17 08:00 BP 106/86 08/25/17 08:00 Pulse Ox 99 08/25/17 08:00 Intake & Output 08/24/17 08/25/17 08/25/17 18:59 06:59 18:59 Intake Total 500 100 Balance 500 100 Weight (lbs) 54.431 kg 53.751 kg Intake: Oral 500 100 Other: # Voids 4 # Bowel Movements 1 Stool Characteristics Soft Active Medications: Current Medications Escitalopram Oxalate (Lexapro) 10 mg PO DAILY WINSTON PRN Reason: Protocol Stop: 10/05/17 08:59 Last Admin: 08/25/17 08:41 Dose: 10 mg Insulin Aspart (Novolog Insulin Sliding Scale) 0 units SUBQ ACHS WINSTON PRN Reason: Protocol Stop: 10/03/17 07:29 Last Admin: 08/25/17 07:54 Dose: Not Given Lactobacillus Rhamnosus (Culturelle 15b) 1 each PO DAILY WINSTON Stop: 10/15/17 08:59 Last Admin: 08/25/17 08:42 Dose: 1 each Metformin HCl (Glucophage) 1,000 mg PO BID WINSTON Stop: 10/03/17 08:59 Last Admin: 08/25/17 08:42 Dose: 1,000 mg Miscellaneous (Probiotic Screen) 1 ea MC PRN PRN PRN Reason: PROTOCOL Stop: 10/14/17 10:29 General: No acute distress HEENT: Atraumatic Neck: Supple - Procedures Procedures: Procedures Procedure Code Date ELECTROCARDIOGRAM 89.52 05/25/95 INJECT/INFUSE NEC 99.29 12/02/12 NASAL SURGERY PROCEDURE 00904 12/05/01 REMOVE NASAL PACKING 97.32 12/05/01 THER/PROPH/DIAG INJ SC/IM 12782 12/02/12 Assessment/Plan - Problem List Patient Problems: All Active Problems DIZZINESS WITH ELEVATED BLOOD GLUCOSE (Acute) Blood glucose elevated (Acute) R73.9 Diabetes mellitus type 2, uncontrolled, without complications (Acute) E11.65 - Assessment Assessment: Current Active Problems Problem Status Onset DIZZINESS WITH ELEVATED BLOOD GLUCOSE Acute - Plan Plan: continue current management Nutritional Asmnt/Malnutr-PDOC - Dietary Evaluation Malnutrition Findings (Please click <Entered> for more info): Nutritional Asmnt/Malnutrition Start: 08/04/17 15: 39 Text: Status: Complete Freq: Document 08/04/17 15:40 MINALG (Rec: 08/04/17 16:02 MINALG [email or web address]) Nutritional Asmnt/Malnutrition Patient General Information Nutritional Screening High Risk Consult Diagnosis DKA, uncontrolled DM Pertinent Medical Hx/Surgical Hx DM Subjective Information Consult received for BG>600. Pt seen lying in bed, awake and alert during the time of visit, no teeth noted. Pt complained did not like baby food, stated she is able to chew, ground diet ok. Pt stated like milk shake, eat everything, "don't care blood sugar". Nutrition education attempted, pt wanted RD to get out. Per notes, PO intake 75% . Current Diet Order/ Nutrition Support CCHO 60gm pureed Pertinent Medications Nacl 0.45%, glucopage, novolog Pertinent Labs 08/04 Na 140, K 3.6, Cl 109, BUN 34, Cr 0.7, Glucose 116, POC 90-475, Mg 1.6 08/03 A1c 12.3, glucose 641 Nutritional Hx/Data Height 1.5 m Height (Calculated Centimeters) 149.9 Current Weight (lbs) 45.359 kg Weight (Calculated Kilograms) 45.4 Weight (Calculated Grams) 83265.2 [place] Body Weight 98 % [place] Body Weight 102 Body Mass Index (BMI) 20.2 Weight Status Approriate GI Symptoms GI Symptoms None Last BM none Difficult in: None Usual diet at home Per pt 3 meals and 1 snack daily, no diet restriction, take DM medicine. Skin Integrity/Comment: intact Estimated Nutritional Goals BEE in Kcals: Using Current wt Calories/Kcals/Kg 25-30 Kcals Calculated 3733-1591 Protein: Using Current wt Protein g/k-1.2 Protein Calculated 46-55 Fluid: ml [id number] Nutritional Problem 1. Problem Problem altered nutrition related lab values Etiology hx of DM, possible imbalanced carbohydrate intake Signs/Symptoms: A1c 12.3, glucose 641 Malnutrition Alert Protein-Calorie Malnutrition N/A Is there a minimum of two criteria No selected? Query Text:Check all the applicable criteria. A minimum of two criteria are recommended for diagnosis of either severe or non-severe malnutrition. Intervention/Recommendation Comments 1. Continue with [facility] diet. Notified RN, RN will talk to MD for diet texture change. 2. Monitor PO intake, wt weekly, labs and skin integrity 3. F/U as moderate risk in 3-5 days, 08/07-08/09 Expected Outcomes/Goals Expected Outcomes/Goals 1. PO intake to meet at least 75% of nutritional needs with tolerance. 2. Wt stability, skin to remain intact, labs to improve
--- NOTE | 2017-08-25 11:33 | Diagnostic Imaging Report ---
CHEST X-RAY: AP view INDICATION: Tuberculosis COMPARISON: Chest x-ray 01/10/2016 FINDINGS: Patient is rotated. No focal consolidation or effusions. Heart size is normal. Atherosclerosis is noted. Degenerative changes of the spine are noted. IMPRESSION: No focal consolidation or radiographic evidence of active tuberculosis. Atherosclerotic vascular disease.
== END 2017-08-25 16:20 | disposition home or self-care (01) | DRG 420 ==
LOC: ER 12:04 → ICU 14:20 → TELE 08-04 19:36 → MSI 08-05 23:29 → UNDODISIN 08-25 16:20
PROVIDERS: ADMIT Internal Medicine; ATTEND Internal Medicine
DX: E11.10 Type 2 diabetes mellitus with ketoacidosis without coma (principal); E11.65 Type 2 diabetes mellitus with hyperglycemia; R42 Dizziness and giddiness; E86.0 Dehydration; F32.9 Major depressive disorder, single episode, unspecified; F41.9 Anxiety disorder, unspecified; Z88.8 Allergy status to other drugs, medicaments and biological substances; Z83.3 Family history of diabetes mellitus; Z79.4 Long term (current) use of insulin; Z59.0 Homelessness
CPT/HCPCS: 36415-UA; 71010-TC; 80048-TC; 80053-TC; 80061-TC; 80307; 81001-TC; 82010-TC; 82150-TC; 82550-TC; 82948-90; 83036-90; 83690-TC; 83735-TC; 83880-TC; 84443-TC; 84484-TC; 84703-TC; 85025-TC; 85610-TC; 87086-90; 94760; 96374; 97530; J1200; J1630; J1815; J2060; J7030; X3904

== ENCOUNTER 2017-10-05 13:18 | Inpatient (IN) | payer MEDICAID ==
--- NOTE | 2017-10-05 13:52 | ED Physician Chart ---
ED Chief Complaint/HPI - Patient Information Date Seen:: 10/05/17 Time Seen:: 13:35 Chief Complaint:: Depression History of Present Illness:: pt brought to ER and made a 51/50 by Police because of inability to care for herself with depression; pt denies SIs; pt denies trauma, H/As, neck pain, C/P, SOB, Abd. Pain, A/N/V/D/c, fever, chills, or urinary s/s Allergies:: Allergies Allergy/AdvReac Type Severity Reaction Status Date / Time warfarin Allergy Verified 07/18/16 21:13 Vitals:: Vital Signs - 8 hr 10/05/17 13:38 Temp 97.3 F HR 91 RR 22 BP 139/83 O2 Sat % 99 Historian:: Patient, Other (Police) Review:: Nurse's Note Reviewed ED Review of Systems - Review of Systems General/Constitutional: No fever, No chills, No weight loss, No weakness, No diaphoresis, No edema, No loss of appetite Skin: No skin lesions, No rash, No bruising Head: No headache, No light-headedness Eyes: No loss of vision, No pain, No diplopia ENT: No earache, No nasal drainage, No sore throat, No tinnitus Neck: No neck pain, No swelling, No thyromegaly, No stiffness, No mass noted Cardio Vascular: No chest pain, No palpitations, No PND, No orthopnea, No edema Pulmonary: No SOB, No cough, No sputum, No wheezing GI: No nausea, No vomiting, No diarrhea, No pain, No melena, No hematochezia, No constipation, No hematemesis G/U: No dysuria, No frequency, No hematuria, No nacturia Cleat Maker: No vaginal discharge, No abnormal vaginal bleed, No contraction Musculoskeletal: No bone or joint pain, No back pain, No muscle pain Endocrine: Polyuria, Polydipsia Psychiatric: Prior psych history, Depression, Anxiety, No suicidal ideation, No homicidal ideation, No auditory hallucination, No visual hallucination Hematopoietic: No bruising, No lymphadenopathy Allergic/Immuno: No urticaria, No angioedema Neurological: No syncope, No focal symptoms, No weakness, No paresthesia, No headache, No seizure, No dizziness, No confusion, No vertigo ED Past Medical History - Past Medical History Obtainable: Yes Past Medical History: HTN, DM Family History: Diabetes Melitus, HTN Social History: Non Smoker, No Alcohol, No Drug Use, Single, Homeless Surgical History: None Psychiatricy History: Depression, Bipolar Medication: Reviewed Family Medical History - Family Member Mother History Unknown: Yes ED Physical Exam - Physical Examination General/Constitutional: Awake, Well-developed, well-nourished, Alert, No distress, GCS 15, Non-toxic appearing, Ambulatory Head: Atraumatic Eyes: Lids, conjuctiva normal, PERRL, EOMI Skin: Nl inspection, No rash, No skin lesions, No ecchymosis, Well hydrated, No lymphadenopathy ENMT: External ears, nose nl, TM canals nl, Nasal exam nl, Lips, teeth, gums nl , Oropharynx nl, Tonsils nl Neck: Nontender, Full ROM w/o pain, No JVD, No nuchal rigidity, No bruit, No mass, No stridor Respiratory: Nl effort/Exclusion, Clear to Auscultation, No Wheeze/Rhonchi/Rales Cardio Vascular: RRR, No murmur, gallop, rubs, NL S1 S2, Carotid/Femoral/Distal pulses equal bilaterally GI: No tenderness/rebounding/guarding, No organomegaly, No hernia, Normal BS's, Nondistended, No mass/bruits, No McBurney tenderness : No CVA tenderness Extremities: No tenderness or effusion, Full ROM, normal strength in all extremities, No edema, Normal digits & nails Neuro/Psych: Alert/oriented, DTR's symmetric, Normal sensory exam, Normal motor strength, Judgement/insight normal, Mood normal, Normal gait, No focal deficits Misc: Normal back, No paraspinal tenderness ED Labs/Radiology/EKG Results - Lab Results Comments:: Glucose: 661; Na+: 131; Lipase: 131 - EKG Interpretations EKG Time:: 17:05 Rate & Rhythm: 84; NSR Comments:: non-specific st-t changes ED Septic Shock - . Is Septic Shock (SBP<90, OR Lactate>4 mmol\L) present?: No - <6hrs of presentation: Vital Signs: Vital Signs - 8 hr 10/05/17 13:38 Temp 97.3 F HR 91 RR 22 BP 139/83 O2 Sat % 99 ED Reassessment (Disposition) - Reassessment Reassessment Condition:: Improved - Diagnosis Diagnosis:: Dx: Uncontrolled DM; Diabetes Mellitus; Hyperglycemiia; Hyponatremia; Pancreatitis; - Aftercare/Follow up Instructions Aftercare/Follow-Up Instructions:: Counseled pt regarding lab results/diagnosis & need follow up, Counseled pt & family regarding lab results/diagnosis & need follow up - Patient Disposition Discharge/Transfer:: Acute Care w/in this hosp Accepting Physician:: Dr. Mosley Time Called:: 2640 Time Responded:: 15:30 Admitted to:: Telemetry Spoke to:: Dr. Mosley Admitting Medical Physician:: Dr. Mosley Admitting Psych Physician:: Dr. Mosley Condition at Disposition:: Stable, Improved ED Discharge Plan - Patient Disposition Instructions: Psychosis
[2017-10-05 13:54] LABS: % EOSINOPHILS 1.2 % (0.0-5.0); % LYMPHOCYTES 15.3 % (20.0-50.0); % MONOCYTES 5.7 % (2.0-10.0); % NEUTROPHILS 77.8 % (40.0-80.0); EOSINOPHILE ABSOLUTE 0.1 Th/cmm (0.1-0.4); HEMOGLOBIN 15.7 gm/dL (12-16); LYMPHOCYTE ABSOLUTE 0.9 Th/cmm (1.5-3.0); MEAN CELL VOLUME 91.1 fl (81-100); MEAN CORPUSCULAR HEMOGLOBIN 29.9 pg (27.0-31.0); MEAN CORPUSCULAR HGB CONC 32.8 pg (28.0-36.0); MONOCYTE ABSOLUTE 0.3 Th/cmm (0.3-1.0); NEUTROPHILE ABSOLUTE 4.7 Th/cmm (1.8-8.0); RED BLOOD COUNT 5.26 Mil/cmm (3.80-5.10); RED CELL DISTRIBUTION WIDTH 14.5 % (11.5-20.0)
[2017-10-05 13:54] LABS: URINE MICROSCOPIC INDICATED? YES; URINE SOURCE CLEAN C
[2017-10-05 13:55] LABS: URINE BILIRUBIN NEGATIVE (NEGATIVE); URINE BLOOD NEGATIVE (NEGATIVE); URINE GLUCOSE (UA) >=1000 mg/dL (NEGATIVE); URINE KETONE TRACE mg/dL (NEGATIVE); URINE LEUKOCYTE ESTERASE NEGATIVE (NEGATIVE); URINE NITRATE NEGATIVE (NEGATIVE); URINE PROTEIN 30 mg/dL (NEGATIVE); URINE UROBILINOGEN 0.2 E.U./dL (0.2 - 1.0)
[2017-10-05 13:56] LABS: HEMATOCRIT 47.9 % (41.0-60); PLATELET COUNT 136 Th/cmm (150-400)
[2017-10-05 14:08] LABS: AMPHETAMINE URINE NEGATIVE (NEGATIVE); BARBITURATES URINE NEGATIVE (NEGATIVE); BENZODIAZEPINES QUAL URINE NEGATIVE (NEGATIVE); CANNABINOID THC NEGATIVE (NEGATIVE); COCAINE METABOLITE QUAL URINE NEGATIVE (NEGATIVE); METHADONE URINE NEGATIVE (NEGATIVE); METHAMPHETAMINES QUAL URINE NEGATIVE (NEGATIVE); OPIATES (MORPHINE) QUAL. URINE NEGATIVE (NEGATIVE); PHENCYCLIDINE (PCP) URINE NEGATIVE (NEGATIVE); TRICYCLICS (TCA) QUAL. URINE NEGATIVE (NEGATIVE)
[2017-10-05 14:11] LABS: ACETAMINOPHEN < 10.0 ug/mL (10.0-30.0); ALB/GLOB RATIO 0.9 (1.0-1.8); ALBUMIN 3.5 gm/dL (3.7-5.3); ALKALINE PHOSPHATASE 146 U/L (34-104); ANION GAP 15.7 (7.0-16.0); BILIRUBIN,TOTAL 0.8 mg/dL (0.3-1.0); BUN - UREA NITROGEN 17 mg/dL (7-25); CALCIUM SERUM 9.9 mg/dL (8.6-10.3); CARBON DIOXIDE 23.9 mEq/L (21.0-31.0); CHLORIDE 96 mEq/L (98-107); CHOLESTEROL 156 mg/dL (<200); CREATININE - SERUM 0.7 mg/dL (0.6-1.2); GFR AFRICAN-AMERICAN > 60.0 ml/min (>90); GFR NON AFRICAN-AMERICAN > 60.0 ml/min; HDL -HIGH DENSITY LIPOPROTEIN 33 mg/dL (23-92); POTASSIUM SERUM 4.6 mEq/L (3.5-5.1); SGOT 83 U/L (13-39); SGPT/ALT 74 U/L (7-52); SODIUM SERUM 131 mEq/L (136-145); TOTAL PROTEIN,SERUM 7.6 gm/dL (6.0-8.3); TRIGLYCERIDES 189 mg/dL (<150)
[2017-10-05 14:21] LABS: GLUCOSE 620 mg/dL (70-105)
[2017-10-05 14:24] LABS: SALICYLATES (ASPIRIN) < 25.0 mg/L (30.0-100.0)
[2017-10-05] MEDS ORDERED: INSULIN HUMAN REGULAR 100 UNITS/ML UNIT SUBQ ONE (14:25)
[2017-10-05] MEDS ORDERED: Sodium Chloride 0.9% 1,000 ML IV ONE (14:26)
[2017-10-05] MEDS ORDERED: INSULIN HUMAN REGULAR 100 UNITS/ML UNIT ONE (14:31)
[2017-10-05 15:04] LABS: URINE CLARITY CLEAR (CLEAR); URINE COLOR YELLOW
[2017-10-05 15:06] LABS: URINE BACTERIA NONE SEEN /hpf (NONE SEEN); URINE EPITHELIAL CELLS NONE SEEN /lpf (FEW); URINE RBC NONE SEEN /hpf (0-5); URINE WBC NONE SEEN /hpf (0-5)
[2017-10-05 15:11] LABS: AMYLASE SERUM 49 U/L (29-103); INR 1.11 (0.5-1.4); LIPASE 131 U/L (11-82); PROTHROMBIN TIME (TEST) 11.6 SECONDS (9.5-11.5)
[2017-10-05] MEDS ORDERED: Sodium Chloride 0.9% 1,000 ML IV SCH (17:15)
[2017-10-05 19:14] LABS: A1C % 14.5 % (4.0-6.0)
[2017-10-05] MEDS: INSULIN ASPART SLIDING SCALE 100 UNITS/ML UNIT SUBQ SCH (21:52)
[2017-10-06 01:45] VITALS: BP 120/62
[2017-10-06 06:19] LABS: % BASOPHILS 0.6 % (0.0-2.0); % EOSINOPHILS 1.4 % (0.0-5.0); % LYMPHOCYTES 27.4 % (20.0-50.0); % MONOCYTES 6.4 % (2.0-10.0); % NEUTROPHILS 64.2 % (40.0-80.0); EOSINOPHILE ABSOLUTE 0.1 Th/cmm (0.1-0.4); HEMOGLOBIN 15.2 gm/dL (12-16); LYMPHOCYTE ABSOLUTE 1.8 Th/cmm (1.5-3.0); MEAN CELL VOLUME 89.9 fl (81-100); MEAN CORPUSCULAR HEMOGLOBIN 29.8 pg (27.0-31.0); MEAN CORPUSCULAR HGB CONC 33.1 pg (28.0-36.0); MEAN PLATELET VOLUME 8.7 fl; MONOCYTE ABSOLUTE 0.4 Th/cmm (0.3-1.0); NEUTROPHILE ABSOLUTE 4.2 Th/cmm (1.8-8.0); PLATELET COUNT 157 Th/cmm (150-400); RED BLOOD COUNT 5.12 Mil/cmm (3.80-5.10); RED CELL DISTRIBUTION WIDTH 14.4 % (11.5-20.0); WHITE BLOOD COUNT 6.5 Th/cmm (4.8-10.8)
[2017-10-06 07:00] LABS: ALB/GLOB RATIO 0.9 (1.0-1.8); ALBUMIN 3.3 gm/dL (3.7-5.3); ALKALINE PHOSPHATASE 137 U/L (34-104); ANION GAP 10.4 (7.0-16.0); BILIRUBIN,TOTAL 0.7 mg/dL (0.3-1.0); BUN - UREA NITROGEN 26 mg/dL (7-25); CALCIUM SERUM 9.6 mg/dL (8.6-10.3); CARBON DIOXIDE 26.5 mEq/L (21.0-31.0); CHLORIDE 102 mEq/L (98-107); CHOLESTEROL 155 mg/dL (<200); CREATININE - SERUM 0.8 mg/dL (0.6-1.2); GFR AFRICAN-AMERICAN > 60.0 ml/min (>90); GFR NON AFRICAN-AMERICAN > 60.0 ml/min; HDL -HIGH DENSITY LIPOPROTEIN 34 mg/dL (23-92); POTASSIUM SERUM 3.9 mEq/L (3.5-5.1); SGOT 116 U/L (13-39); SGPT/ALT 83 U/L (7-52); SODIUM SERUM 135 mEq/L (136-145); TOTAL PROTEIN,SERUM 7.1 gm/dL (6.0-8.3); TRIGLYCERIDES 106 mg/dL (<150)
[2017-10-06 07:01] LABS: GLUCOSE 286 mg/dL (70-105)
[2017-10-06] MEDS: INSULIN ASPART SLIDING SCALE 100 UNITS/ML UNIT SUBQ SCH ×4 (08:29→21:07)
[2017-10-06] MEDS ORDERED: Insulin Detemir 100 units/mL 10mL Vial SUBQ SCH (09:00)
[2017-10-06] MEDS ORDERED: Pneumococcal Vaccine 0.5 mL Vial IM ONE (10:00)
[2017-10-06] MEDS ORDERED: Influenza Vaccine 0.5 mL Syr IM ONE (10:00)
--- NOTE | 2017-10-06 18:31 | Consultation ---
DATE OF CONSULTATION: JUSTIFICATION FOR HOSPITALIZATION: The patient was brought in on a hold, currently in the med-surg unit. HISTORY OF PRESENT ILLNESS: A 57-year-old female, unclear psych history, brought in on a hold, grave disability, was apparently disoriented, confused, did not know where she was, was unable to verbalize a plan for self-care on [id number]. The patient withdrawn AO to name, place, not situation. She knows the year, not the month, not the day and not the day of the week. She states she is severely depressed, hopeless, sad all the time. Mild anxiety, not eating very well. Sleep "okay". PAST PSYCHIATRIC HISTORY: Unclear. It seems she has a diagnosis of major depression. She denies any psychiatric hospitalizations, but then tells me later "I don't remember". FAMILY HISTORY: Noncontributory. SOCIAL HISTORY: Born in [place], [place]. States she is . She is not quite sure how many kids she has. No drugs, no alcohol, no tobacco. Currently homeless. MEDICATIONS: Noted. She does not know if she has been on psychiatric medications before. MENTAL STATUS EXAMINATION: Stated age. Fair eye contact. Speech, decreased content. Disoriented. Mood "depressed", sad affect, withdrawn. Thought processes were disoriented. No SI, no HI. No psychosis. Insight and judgment diminished. PROVISIONAL DIAGNOSIS: Mood, unspecified; major depression, recurrent, unspecified. It is unclear if she has underlying bipolar diagnosis or schizophrenia diagnosis. She is not a good historian. Also, poor medication and treatment compliance. UNDER MEDICAL: Please see full H and P. ASSESSMENT AND PLAN: The patient to remain on a 5150 hold. We will continue to monitor. The patient may need psychotropic medications, advise avoiding opiates and anticholinergics if possible. We will also try to increase . JOB# [id number]
[2017-10-07] MEDS: INSULIN ASPART SLIDING SCALE 100 UNITS/ML UNIT SUBQ SCH ×3 (07:56→16:41)
[2017-10-07] MEDS: Insulin Detemir 100 units/mL 10mL Vial SUBQ SCH (09:42)
--- NOTE | 2017-10-07 23:07 | Consultation ---
DATE OF CONSULTATION: 10/07/2017 HISTORY OF PRESENT ILLNESS: A 57-year-old female brought in on a hold, grave disability. She was pretty disoriented yesterday and mildly unruly today. She is oriented to name, place, situation and year. She is not quite sure about the month or the day of the week. She states she does not really pay attention to those things. She is chronically homeless, somewhat irritable today asking for a sandwich. She states she is very hungry. A new unruly behaviors, no agitated behaviors. She states she wants help. The patient states that she has been homeless for a long time, living in poverty after her years ago. The patient states that at times she stays in homeless shelters, other times she is just homeless. She states she is able to get food and has no problems with getting food. The patient states that things have been this way "a long time." PAST PSYCHIATRIC HISTORY: She denies psychiatric hospitalizations. States she has never attempted suicide nor ever been on any psychotropic medications, "I am not crazy." FAMILY HISTORY: Noncontributory. SOCIAL HISTORY: Noted, homeless. MEDICATIONS: Noted. MENTAL STATUS EXAMINATION: Stated age, better eye contact, awake, alert, better orientation. Mood "hungry." Affect broad. Thought processes were linear this afternoon. No SI. No HI. No overt psychotic symptoms. Insight and judgment seemed to be improving. PROVISIONAL DIAGNOSES: Mood, unspecified; major depression, recurrent, unspecified. The patient denying any underlying bipolar or schizophrenia diagnosis. MEDICAL: Please see full H and P. ASSESSMENT AND PLAN: A 57-year-old female, seems to have history of depression, coming into the hospital on a hold. It seems that she was quite altered, but this could have been due to medical problems. Her blood sugar was very high and has she is being medically treated, she seems to be approaching her baseline. The patient is able to verbalize a reasonable plan for self-care. She states she stays in shelters or has just been chronically homeless. She states she is able to fend for herself, get food. She is eating on her own, volition without any help. She is fully independent per staff, able to fully express herself. The patient states she wants to stay in the hospital for continued treatment. She wants to get her blood sugar down. Will err on side of caution and monitor for further time to make sure there is consistency in her presentation. Continue 72 hr hold. JOB# [id number] MTDD
[2017-10-08] MEDS: INSULIN ASPART SLIDING SCALE 100 UNITS/ML UNIT SUBQ SCH ×5 (05:33→21:05)
--- NOTE | 2017-10-08 08:38 | Progress Notes ---
DATE: 10/08/2017 HISTORY OF PRESENT ILLNESS: A 57-year-old female, somewhat disoriented today, she was doing better yesterday, very well oriented yesterday, today she is confused. She is not quite sure where she is or the year, she is not quite sure about the month. She was somewhat unruly yesterday, required redirection, security came and she settled down. PAST PSYCH HISTORY: Noted. MEDICATIONS: Noted. MENTAL STATUS EXAMINATION: Stated age, awake, alert but disoriented. No overt psychosis or SI. PROVISIONAL DIAGNOSES: Mood, unspecified; major depression, recurrent, unspecified. There may be underlying delirium. RECOMMENDATIONS AND PLAN: Ongoing safety concerns. There are concerns about her ability to attend to her basic needs. We will err on the side of caution, initiate a 14-day hold for grave disability. [facility]# [id number]
[2017-10-08] MEDS: Insulin Detemir 100 units/mL 10mL Vial SUBQ SCH ×2 (09:12→12:35)
[2017-10-09] MEDS: INSULIN ASPART SLIDING SCALE 100 UNITS/ML UNIT SUBQ SCH ×4 (08:58→21:11)
[2017-10-09] MEDS: Insulin Detemir 100 units/mL 10mL Vial SUBQ SCH (08:59)
[2017-10-10] MEDS: INSULIN ASPART SLIDING SCALE 100 UNITS/ML UNIT SUBQ SCH ×4 (08:49→21:22)
[2017-10-10] MEDS: Insulin Detemir 100 units/mL 10mL Vial SUBQ SCH (08:55)
[2017-10-11] MEDS: Insulin Detemir 100 units/mL 10mL Vial SUBQ SCH ×2 (08:01→20:24)
[2017-10-11] MEDS: INSULIN ASPART SLIDING SCALE 100 UNITS/ML UNIT SUBQ SCH ×4 (08:03→20:20)
--- NOTE | 2017-10-11 18:08 | Consultation ---
DATE OF CONSULTATION: 10/11/2017 HISTORY OF PRESENT ILLNESS: A 57-year-old female, remains better oriented today. She knows her name. She knows that she is in the hospital. She knows why she is in the hospital. She knows the year, the day of the week. She is not quite sure about the month. She knows what city she is in. She tells me that when she leaves here, she will either go stay in a long term or she can go to her friend's house. She states that she has been in shelters before. She knows how to navigate the long term system. She has been eating on her own, bathrooming on her own, requiring absolutely no staff help and actually when the staff tries to help her, she becomes upset. She would like to leave, asking to leave, denying any overt depression, no anxiety, "not crazy." Sleeping well. PAST PSYCHIATRIC HISTORY: Noted. MEDICATIONS: Noted. MENTAL STATUS EXAMINATION: Good attention ADLs, appropriately dressed and groomed. Good eye contact. Mood: "okay." Affect broader. Thought processes were more linear and engaged, but orientation, no SI, no HI, no overt psychotic symptoms. Staff noting also better orientation. She has been redirectable. PROVISIONAL DIAGNOSIS: Mood, unspecified; major depression, recurrent, unspecified. It seems that she may have been delirious and now this is resolving. RECOMMENDATIONS AND PLAN: I am trying to confirm with dependency case manager safe discharge plan. The patient is appearing to improve. No overt evidence of grave disability. Well, she is homeless. She is still able to utilize long term system and has been for years, providing for her basic food and clothing occasionally staying in shelters other times at friend's houses. Tolerant to Prozac. No side effects. Once a safe discharge plan has been confirmed and/or the patient can simply go to a long term. We will discharge the 14-day hold. JOB# [id number]
[2017-10-12] MEDS: INSULIN ASPART SLIDING SCALE 100 UNITS/ML UNIT SUBQ SCH ×4 (09:11→20:18)
[2017-10-12] MEDS: Insulin Detemir 100 units/mL 10mL Vial SUBQ SCH (20:22)
--- NOTE | 2017-10-12 20:46 | Consultation ---
DATE OF CONSULTATION: 10/12/2017 HISTORY OF PRESENT ILLNESS: A 57-year-old female, who had been following now for some days. AO to name, place, and situation. She knows the year. She is not quite sure about the month. She is noted by staff to be calm and cooperative. She has been eating well and on her own volition, appropriately dressed and groomed. Bathrooming on her own. No agitation, no escalation of behaviors. Continues to be consistently telling me that she has been homeless rather for "very long time." Once again, she has been consistently been telling me that she has been "homeless for a very long time." Knows how to navigate the [facility] systems, goes to ___soup__ smooth for food and eventually would like to make her way back to [place] where she has some family. Sleeping well. PAST PSYCHIATRIC HISTORY: Continues to deny any hospitalizations. No suicide history. MENTAL STATUS EXAMINATION: Fair attention ADLs, appropriately dressed and groomed, calm, cooperative, better orientation. She is linear and engaged on exam. No SI, no SI, no intent, no plan. No psychotic symptoms. Re-directable per staff. PROVISIONAL DIAGNOSES: Mood, unspecified; major depression, recurrent, unspecified, likely some delirium, now resolving and resolved. RECOMMENDATIONS AND PLAN: The patient currently on a 14-day hold. She has been consistently more oriented, without any behaviors and consistently she has been able to verbalize a plan for self-care. I will take her out 14-day hold. I do not feel that she meets criteria for SI, HI or grave disability. We will attempt to keep her in the hospital voluntarily to try to get her possibly into a board and care halfway type setting. She remains tolerant to medications. No side effects. JOB# [id number] SHIRLENE
[2017-10-13] MEDS: INSULIN ASPART SLIDING SCALE 100 UNITS/ML UNIT SUBQ SCH ×4 (06:53→20:38)
[2017-10-13] MEDS: Insulin Detemir 100 units/mL 10mL Vial SUBQ SCH (20:37)
--- NOTE | 2017-10-14 01:23 | Consultation ---
DATE OF CONSULTATION: 10/13/2017 HISTORY OF PRESENT ILLNESS: A 57-year-old female, AO to name, place, situation, and year. She is not quite sure about the month, more calm and cooperative, eating on her own, going to the bathroom on her own. I found out that the 14-day hold became invalid because __court__ never recieved it although staff noting it was faxed. She is here voluntarily, agreeable to stay voluntarily. She has been denying any help with placement. Her plan is to catch a bus to [place], to stay with some family. She has been pretty consistently saying this. PAST PSYCHIATRIC HISTORY: Denies hospitalizations, continues to deny any suicide attempts or history. MENTAL STATUS EXAMINATION: Fair ADLs, appropriately dressed, calm, cooperative, linear on exam. Fair orientation. No SI, no HI, no intent, no plan. No psychotic symptoms redirectable. PROVISIONAL DIAGNOSIS: Major depression, recurrent, unspecified, likely delirium, now resolving. RECOMMENDATIONS AND PLAN: The patient is here in the hospital voluntarily. We are trying to secure a safe discharge plan as best as we can based on her resources. The patient has been chronically homeless. She knows of how to navigate the longterm and soup kitchen system. This may be the discharge plan that we are moving toward at this time if there is no alternatives. JOB# [id number] SHIRLENE
[2017-10-14] MEDS: INSULIN ASPART SLIDING SCALE 100 UNITS/ML UNIT SUBQ SCH ×4 (08:00→20:48)
[2017-10-14] MEDS: Insulin Detemir 100 units/mL 10mL Vial SUBQ SCH (20:49)
[2017-10-15] MEDS: INSULIN ASPART SLIDING SCALE 100 UNITS/ML UNIT SUBQ SCH ×4 (07:58→21:47)
[2017-10-15] MEDS: Insulin Detemir 100 units/mL 10mL Vial SUBQ SCH (21:46)
[2017-10-16] MEDS: INSULIN ASPART SLIDING SCALE 100 UNITS/ML UNIT SUBQ SCH ×4 (08:21→21:10)
--- NOTE | 2017-10-16 16:40 | Progress Notes ---
DATE: 10/16/[address] Sanches. Case was discussed with staff of the patient, reviewed records. This is a 57-year-old female with unclear psychiatric history who was admitted to have a grave disability, disoriented, confused, does not know where she is, why she is here. She was diagnosed with major depression. She denies prior psychiatric hospitalization and she told that she does not remember. The patient has been managed by Dr. Sanches, still confused. She is agreeable to stay. There is no need help with placement. She went to catch a bus and go to [place] with family. Denies any suicidal attempts or suicidal ideation. The staff is trying to work on safe discharge plan for this patient and she has been on Prozac 10 mg daily, Thank you very much for allowing me to participate in the care this most interesting lady. JOB# [id number]
[2017-10-16] MEDS: Insulin Detemir 100 units/mL 10mL Vial SUBQ SCH (21:10)
[2017-10-17] MEDS: INSULIN ASPART SLIDING SCALE 100 UNITS/ML UNIT SUBQ SCH ×4 (08:06→21:45)
[2017-10-17] MEDS: Insulin Detemir 100 units/mL 10mL Vial SUBQ SCH (21:46)
--- NOTE | 2017-10-17 22:34 | Progress Notes ---
DATE: 10/17/2017 Case was discussed with staff of the patient and reviewed records. The patient continues to do the same. She wants to go to [place]. She says she will hitchhike. She continues to be gravely disabled and unable to make safe plan for self-care. She continues to have poor insight, needing redirection. Staff is trying to work on safe discharge plan for her and no side effects to the medication, no sedation, no nausea, no extrapyramidal symptoms. She is on Prozac 10 mg a day. Thank you very much for allowing me to participate in the care of this most interesting lady. JOB# [id number]
[2017-10-18] MEDS: INSULIN ASPART SLIDING SCALE 100 UNITS/ML UNIT SUBQ SCH ×4 (08:48→21:24)
[2017-10-18] MEDS: Insulin Detemir 100 units/mL 10mL Vial SUBQ SCH (21:24)
[2017-10-19] MEDS: INSULIN ASPART SLIDING SCALE 100 UNITS/ML UNIT SUBQ SCH ×4 (10:06→21:43)
[2017-10-19] MEDS: Insulin Detemir 100 units/mL 10mL Vial SUBQ SCH (21:44)
[2017-10-20] MEDS: INSULIN ASPART SLIDING SCALE 100 UNITS/ML UNIT SUBQ SCH ×4 (07:58→20:47)
[2017-10-20] MEDS: Insulin Detemir 100 units/mL 10mL Vial SUBQ SCH (21:33)
[2017-10-21] MEDS: INSULIN ASPART SLIDING SCALE 100 UNITS/ML UNIT SUBQ SCH ×4 (06:34→20:26)
[2017-10-21] MEDS: Insulin Detemir 100 units/mL 10mL Vial SUBQ SCH (20:24)
[2017-10-22] MEDS: INSULIN ASPART SLIDING SCALE 100 UNITS/ML UNIT SUBQ SCH ×4 (08:25→20:46)
[2017-10-22] MEDS: Insulin Detemir 100 units/mL 10mL Vial SUBQ SCH (20:47)
[2017-10-23] MEDS: INSULIN ASPART SLIDING SCALE 100 UNITS/ML UNIT SUBQ SCH ×4 (09:12→21:35)
[2017-10-23] MEDS: Insulin Detemir 100 units/mL 10mL Vial SUBQ SCH (21:36)
[2017-10-24] MEDS: INSULIN ASPART SLIDING SCALE 100 UNITS/ML UNIT SUBQ SCH ×4 (08:21→20:58)
[2017-10-24] MEDS: Insulin Detemir 100 units/mL 10mL Vial SUBQ SCH (20:57)
[2017-10-25] MEDS: INSULIN ASPART SLIDING SCALE 100 UNITS/ML UNIT SUBQ SCH ×4 (08:29→21:40)
[2017-10-25] MEDS: Insulin Detemir 100 units/mL 10mL Vial SUBQ SCH (21:40)
[2017-10-26] MEDS: INSULIN ASPART SLIDING SCALE 100 UNITS/ML UNIT SUBQ SCH ×4 (08:45→21:06)
[2017-10-26] MEDS: Insulin Detemir 100 units/mL 10mL Vial SUBQ SCH (21:05)
[2017-10-27] MEDS: INSULIN ASPART SLIDING SCALE 100 UNITS/ML UNIT SUBQ SCH ×4 (07:59→20:42)
[2017-10-27] MEDS: Insulin Detemir 100 units/mL 10mL Vial SUBQ SCH (20:43)
[2017-10-28] MEDS: INSULIN ASPART SLIDING SCALE 100 UNITS/ML UNIT SUBQ SCH ×5 (07:24→20:41)
[2017-10-28] MEDS: Insulin Detemir 100 units/mL 10mL Vial SUBQ SCH (20:44)
[2017-10-29] MEDS: INSULIN ASPART SLIDING SCALE 100 UNITS/ML UNIT SUBQ SCH ×4 (08:37→21:04)
[2017-10-29] MEDS: Insulin Detemir 100 units/mL 10mL Vial SUBQ SCH (21:04)
[2017-10-30] MEDS: INSULIN ASPART SLIDING SCALE 100 UNITS/ML UNIT SUBQ SCH ×4 (08:22→21:12)
[2017-10-30] MEDS: Insulin Detemir 100 units/mL 10mL Vial SUBQ SCH (21:12)
[2017-10-31] MEDS: INSULIN ASPART SLIDING SCALE 100 UNITS/ML UNIT SUBQ SCH ×4 (08:17→22:16)
[2017-10-31] MEDS: Insulin Detemir 100 units/mL 10mL Vial SUBQ SCH (22:18)
[2017-11-01] MEDS: INSULIN ASPART SLIDING SCALE 100 UNITS/ML UNIT SUBQ SCH ×4 (08:21→20:06)
[2017-11-01] MEDS: Insulin Detemir 100 units/mL 10mL Vial SUBQ SCH (20:13)
[2017-11-02] MEDS: INSULIN ASPART SLIDING SCALE 100 UNITS/ML UNIT SUBQ SCH ×4 (08:42→20:44)
[2017-11-02] MEDS: Insulin Detemir 100 units/mL 10mL Vial SUBQ SCH (20:50)
[2017-11-03] MEDS: INSULIN ASPART SLIDING SCALE 100 UNITS/ML UNIT SUBQ SCH ×5 (08:09→21:31)
[2017-11-03] MEDS: Insulin Detemir 100 units/mL 10mL Vial SUBQ SCH (21:30)
[2017-11-04] MEDS: INSULIN ASPART SLIDING SCALE 100 UNITS/ML UNIT SUBQ SCH ×4 (07:34→21:06)
[2017-11-04] MEDS: Insulin Detemir 100 units/mL 10mL Vial SUBQ SCH (21:05)
[2017-11-05] MEDS: INSULIN ASPART SLIDING SCALE 100 UNITS/ML UNIT SUBQ SCH (12:45)
[2017-11-05] MEDS: Insulin Detemir 100 units/mL 10mL Vial SUBQ SCH (20:57)
[2017-11-06] MEDS: Insulin Detemir 100 units/mL 10mL Vial SUBQ SCH (21:00)
[2017-11-07] MEDS: INSULIN ASPART SLIDING SCALE 100 UNITS/ML UNIT SUBQ SCH ×2 (16:20→20:33)
[2017-11-08] MEDS: Insulin Detemir 100 units/mL 10mL Vial SUBQ SCH ×2 (00:28→23:13)
[2017-11-08] MEDS: INSULIN ASPART SLIDING SCALE 100 UNITS/ML UNIT SUBQ SCH ×5 (07:17→23:12)
[2017-11-09] MEDS: INSULIN ASPART SLIDING SCALE 100 UNITS/ML UNIT SUBQ SCH ×4 (07:41→22:17)
[2017-11-09] MEDS: Insulin Detemir 100 units/mL 10mL Vial SUBQ SCH (22:18)
[2017-11-10] MEDS: INSULIN ASPART SLIDING SCALE 100 UNITS/ML UNIT SUBQ SCH ×2 (07:14→12:05)
[2017-11-10] MEDS ORDERED: Insulin Detemir 100 units/mL 10mL Vial SUBQ SCH (21:00)
== END 2017-11-10 14:36 | disposition short-term general hospital (02) | DRG 282 ==
LOC: ER 13:18 → TELE 17:40 → MSI 10-07 18:29 → TELE 10-07 23:16 → MSI 10-08 02:30
PROVIDERS: ADMIT Internal Medicine; ATTEND Internal Medicine
DX: K85.90 Acute pancreatitis without necrosis or infection, unspecified (principal); E11.00 Type 2 diabetes mellitus with hyperosmolarity without nonketotic hyperglycemic-hyperosmolar coma (NKHHC); E44.0 Moderate protein-calorie malnutrition; E11.65 Type 2 diabetes mellitus with hyperglycemia; F20.9 Schizophrenia, unspecified; E86.0 Dehydration; F33.9 Major depressive disorder, recurrent, unspecified; E87.1 Hypo-osmolality and hyponatremia; I10 Essential (primary) hypertension; R41.0 Disorientation, unspecified; F41.9 Anxiety disorder, unspecified; M54.2 Cervicalgia; F39 Unspecified mood [affective] disorder; Z59.0 Homelessness; Z68.28 Body mass index [BMI] 28.0-28.9, adult; Z88.8 Allergy status to other drugs, medicaments and biological substances; Z23 Encounter for immunization
CPT/HCPCS: 36415-UA; 80053-TC; 80061-TC; 80307; 80320-TC; 80329-TC; 81001-TC; 82010-TC; 82150-TC; 82550-TC; 82948-90; 83036-90; 83690-TC; 83880-TC; 84443-TC; 84484-TC; 85025-TC; 85610-TC; 86592-TC; 94760; 97530; J1815; J7030; X3904; Z7610

== ENCOUNTER 2018-04-19 12:27 | Inpatient (IN) | payer MEDICAID ==
--- NOTE | 2018-04-19 13:05 | ED Physician Chart ---
ED Chief Complaint/HPI - Patient Information Date Seen:: 04/19/18 Time Seen:: 12:30 Chief Complaint:: hyperglycemia History of Present Illness:: 58 yr old female homeless diabetic non compliant who comes for high bs pt angry shouting says she hates people and refuses to go in a jail Allergies:: Allergies Allergy/AdvReac Type Severity Reaction Status Date / Time warfarin Allergy Verified 07/18/16 21:13 Vitals:: Vital Signs - 8 hr 04/19/18 12:36 Temp 98.2 F HR 87 RR 16 BP 118/51 O2 Sat % 98 ED Review of Systems - Review of Systems General/Constitutional: No fever Eyes: No loss of vision ENT: No earache Neck: No neck pain Cardio Vascular: No chest pain Pulmonary: No SOB GI: Vomiting G/U: No dysuria Psychiatric: Depression, Anxiety ED Past Medical History - Past Medical History Past Medical History: DM Family Medical History - Family Member Mother History Unknown: Yes ED Physical Exam - Physical Examination General/Constitutional: Awake Other Gen/Cons comments:: disheveled angry shouting non compliant Other Skin comments:: skin filthy dirty Neck: No JVD Respiratory: Nl effort/Exclusion Cardio Vascular: RRR GI: No organomegaly Extremities: No tenderness or effusion Other Neuro/Psych comments:: appears somewhat psychotic ED Assessment - Assessment General Assessment: hyperglycemia non compliant with insulin humolog homeless vagrant psychotic ED Septic Shock - . Is Septic Shock (SBP<90, OR Lactate>4 mmol\L) present?: No - <6hrs of presentation: Vital Signs: Vital Signs - 8 hr 04/19/18 12:36 Temp 98.2 F HR 87 RR 16 BP 118/51 O2 Sat % 98 ED Reassessment (Disposition) - Diagnosis Diagnosis:: hyperglycemia diabetic non compliant on the streets and refuses help angry psychotic - Patient Disposition Discharge/Transfer:: Acute Care w/in this hosp
[2018-04-19] MEDS ORDERED: Sodium Chloride 0.9% 1,000 ML IV ONE (13:16)
[2018-04-19] MEDS ORDERED: INSULIN ASPART, RECOMBINANT 100 UNITS/ML SUBQ ONE ×3 (13:19→16:36)
[2018-04-19 13:30] LABS: URINE SOURCE CLEAN C
[2018-04-19 13:31] LABS: URINE BILIRUBIN NEGATIVE (NEGATIVE); URINE BLOOD SMALL (NEGATIVE); URINE GLUCOSE (UA) >=1000 mg/dL (NEGATIVE); URINE KETONE NEGATIVE (NEGATIVE); URINE LEUKOCYTE ESTERASE TRACE (NEGATIVE); URINE MICROSCOPIC INDICATED? YES; URINE NITRATE NEGATIVE (NEGATIVE); URINE PH 5.5 (4.6 - 8.0); URINE PROTEIN 30 mg/dL (NEGATIVE); URINE UROBILINOGEN 0.2 E.U./dL (0.2 - 1.0)
[2018-04-19 14:46] LABS: URINE CLARITY HAZY (CLEAR); URINE COLOR YELLOW
[2018-04-19 14:47] LABS: URINE BACTERIA NONE SEEN /hpf (NONE SEEN); URINE EPITHELIAL CELLS OCCASIONAL /lpf (FEW); URINE WBC 0-2 /hpf (0-5)
[2018-04-19 15:24] LABS: % BASOPHILS 0.1 % (0.0-2.0); % LYMPHOCYTES 21.2 % (20.0-50.0); % NEUTROPHILS 71.7 % (40.0-80.0); EOSINOPHILE ABSOLUTE 0.1 Th/cmm (0.1-0.4); HEMATOCRIT 39.5 % (41.0-60); MEAN CELL VOLUME 87.8 fl (81-100); MEAN PLATELET VOLUME 8.9 fl; MONOCYTE ABSOLUTE 0.2 Th/cmm (0.3-1.0); NEUTROPHILE ABSOLUTE 3.4 Th/cmm (1.8-8.0); PLATELET COUNT 145 Th/cmm (150-400); RED CELL DISTRIBUTION WIDTH 14.8 % (11.5-20.0); WHITE BLOOD COUNT 4.7 Th/cmm (4.8-10.8)
[2018-04-19 16:06] LABS: ALB/GLOB RATIO 1.1 (1.0-1.8); ALBUMIN 3.2 gm/dL (3.7-5.3); ALKALINE PHOSPHATASE 119 U/L (34-104); ANION GAP 12.9 (7.0-16.0); BILIRUBIN,TOTAL 0.5 mg/dL (0.3-1.0); BUN - UREA NITROGEN 17 mg/dL (7-25); CALCIUM SERUM 8.8 mg/dL (8.6-10.3); CHLORIDE 103 mEq/L (98-107); CREATININE - SERUM 0.7 mg/dL (0.6-1.2); GFR AFRICAN-AMERICAN > 60.0 ml/min (>90); GFR NON AFRICAN-AMERICAN > 60.0 ml/min; POTASSIUM SERUM 3.9 mEq/L (3.5-5.1); SGOT 108 U/L (13-39); SGPT/ALT 84 U/L (7-52); SODIUM SERUM 133 mEq/L (136-145); TOTAL PROTEIN,SERUM 6.1 gm/dL (6.0-8.3)
[2018-04-19 16:14] LABS: GLUCOSE 498 mg/dL (70-105)
[2018-04-19 20:51] VITALS: BP 155/75
[2018-04-19] MEDS: Sodium Chloride 0.9% 1,000 ML IV SCH (23:35)
[2018-04-20] MEDS ORDERED: INSULIN ASPART SLIDING SCALE 100 UNITS/ML UNIT SUBQ SCH (07:30)
--- NOTE | 2018-04-20 08:43 | History and Physical ---
History of Present Illness - HPI Chief Complaint: Hyperglycemia HPI: 58 y/o homeless female who presents to [facility] with elevated blood sugars around the 495. Patient has a known history of diabetes mellitus and is on insulin but is non compliant. She has been having urinary frequency and urgency and found to have trace leukoesterase and small blood. Patient had routine labwork which revealed the following. WBC 4.7 H/H 13.0/39.5 platelets 145K Na 133 K 3.9 Bun/cr 17/0.7 glu 498 UA protein 30 glucose 1000 blood small leukoesterase trace serum ketone neg Patient was subsequently admitted for futher evaluation and treatment. 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: Report: No Pertinent Hx GI: Report: No Pertinent Hx Psych: Report: Depression Musculoskeletal: Report: No Pertinent Hx Rheumatologic: Report: No pertinent Hx Infectious Disease: Report: No Pertinent Hx Renal/: Report: UTI, Urinary Incontinence Endocrine: Report: Diabetes Dermatology: Report: No Pertinent Hx - Past Surgical History Past Surgical History: No pertinent Hx Family Medical History - Family Member Mother History Unknown: Yes Social History Smoke: No Alcohol: None Drugs: None Lives: Homeless - Medications Home Medications: Home Medication Medication Instructions Recorded Type metFORMIN [Glucophage] 1,000 mg PO BID tab 08/25/17 Rx alprazOLAM [Xanax*] 0.25 mg PO DAILY 10/05/17 History - Allergies Allergies/Adverse Reactions: Allergies Allergy/AdvReac Type Severity Reaction Status Date / Time warfarin Allergy Verified 07/18/16 21:13 Review of Systems - Review of Systems Constitutional: Report: No Significant Eyes: Report: No Significant ENT: Report: No Significant Respiratory: Report: No Significant Cardiovascular: Report: No Significant Gastrointestinal: Report: Abdominal Pain Genitourinary: Report: Incontinence Musculoskeletal: Report: No Significant Skin: Report: No Significant Neurological: Report: No Significant Physical Exam - Physical Exam HEENT: Report: Ears Nose Throat within normal limits, Pharnyx within normal limits Neck: Report: Within normal limits Cardiovascular Systems: Report: +s1/s2 noted, Regular, Rate and Rhythm Respiratory: Report: Breath Sounds are within normal limits, Clear to Auscultation of lung randall Abdomen: Report: Non-tender to palpation Back: Report: Inspection of back is within normal limits. Extremities: Report: Non-tender to palpation. Skin: Report: Color of skin is within normal limits Neuro/Psych: Report: Mood affect is within normal limits, A+Ox3, CN II-XII intact - Lab Results All Lab Results last 24 hours: Laboratory Results - last 24 hr 04/19/18 04/19/18 04/19/18 12:45 15:05 15:05 WBC 4.7 L RBC 4.50 Hgb 13.0 Hct 39.5 L MCV 87.8 MCH 29.0 MCHC Differential 33.0 RDW 14.8 Plt Count 145 L MPV 8.9 Neutrophils % 71.7 Lymphocytes % 21.2 Monocytes % 5.0 Eosinophils % 2.0 Basophils % 0.1 Sodium 133 L Potassium 3.9 Chloride 103 Carbon Dioxide 21.0 Anion Gap 12.9 BUN 17 Creatinine 0.7 Est GFR ( Amer) > 60.0 Est GFR (Non-Af Amer) > 60.0 BUN/Creatinine Ratio 24.3 Glucose 498 H* POC Glucose Calcium 8.8 Total Bilirubin 0.5 AST 108 H ALT 84 H Alkaline Phosphatase 119 H Total Protein 6.1 Albumin 3.2 L Globulin 2.9 Albumin/Globulin Ratio 1.1 Urine Source CLEAN C Urine Color YELLOW Urine Clarity HAZY Urine pH 5.5 Ur Specific [place] 1.020 Urine Protein 30 H Urine Glucose (UA) >=1000 H Urine Ketones NEGATIVE Urine Blood SMALL H Urine Nitrate NEGATIVE Urine Bilirubin NEGATIVE Urine Urobilinogen 0.2 Ur Leukocyte Esterase TRACE H Urine RBC 2-5 Urine WBC 0-2 Ur Epithelial Cells OCCASIONAL Urine Bacteria NONE SEEN Serum Ketones 04/19/18 04/20/18 16:53 05:42 WBC RBC Hgb Hct MCV MCH MCHC Differential RDW Plt Count MPV Neutrophils % Lymphocytes % Monocytes % Eosinophils % Basophils % Sodium Potassium Chloride Carbon Dioxide Anion Gap BUN Creatinine Est GFR ( Amer) Est GFR (Non-Af Amer) BUN/Creatinine Ratio Glucose POC Glucose 256 H Calcium Total Bilirubin AST ALT Alkaline Phosphatase Total Protein Albumin Globulin Albumin/Globulin Ratio Urine Source Urine Color Urine Clarity Urine pH Ur Specific [place] Urine Protein Urine Glucose (UA) Urine Ketones Urine Blood Urine Nitrate Urine Bilirubin Urine Urobilinogen Ur Leukocyte Esterase Urine RBC Urine WBC Ur Epithelial Cells Urine Bacteria Serum Ketones NEGATIVE - Assessment Assessment: hyperglycemia diabetes mellitus hyponatremia UTI depression - Plan Plan: will order repeat CBC,CMP,TSH,HbA1c dietary consult Levemir 10u SQ qhs insulin low sliding scale
[2018-04-20] MEDS ORDERED: cefTRIAXone 1 GM in Sodium Chloride 0.9% 50 ML IV SCH (09:00)
[2018-04-20] MEDS: Sulfamethoxazole/TMP 800/160mg Tab PO SCH ×2 (10:28→16:24)
[2018-04-20 11:44] LABS: HEMATOCRIT 43.6 % (41.0-60); RED CELL DISTRIBUTION WIDTH 14.5 % (11.5-20.0)
[2018-04-20 11:48] LABS: HEMOGLOBIN 14.1 gm/dL (12-16); MEAN CELL VOLUME 87.7 fl (81-100); MEAN CORPUSCULAR HEMOGLOBIN 28.3 pg (27.0-31.0); MEAN CORPUSCULAR HGB CONC 32.3 pg (28.0-36.0); MEAN PLATELET VOLUME 8.9 fl; RED BLOOD COUNT 4.97 Mil/cmm (3.80-5.10); WHITE BLOOD COUNT 6.8 Th/cmm (4.8-10.8)
[2018-04-20 11:49] LABS: PLATELET COUNT 72 Th/cmm (150-400)
[2018-04-20 11:56] LABS: ALB/GLOB RATIO 0.9 (1.0-1.8); ALKALINE PHOSPHATASE 124 U/L (34-104); ANION GAP 13.7 (7.0-16.0); BILIRUBIN,TOTAL 0.7 mg/dL (0.3-1.0); BUN - UREA NITROGEN 24 mg/dL (7-25); CARBON DIOXIDE 21.7 mEq/L (21.0-31.0); CHLORIDE 101 mEq/L (98-107); CREATININE - SERUM 0.8 mg/dL (0.6-1.2); GFR AFRICAN-AMERICAN > 60.0 ml/min (>90); GFR NON AFRICAN-AMERICAN > 60.0 ml/min; GLUCOSE 420 mg/dL (70-105); POTASSIUM SERUM 4.4 mEq/L (3.5-5.1); SGOT 123 U/L (13-39); SGPT/ALT 91 U/L (7-52); SODIUM SERUM 132 mEq/L (136-145); TOTAL PROTEIN,SERUM 6.3 gm/dL (6.0-8.3)
[2018-04-20 12:13] LABS: BAND NEUTROPHILE 1 % (0-10); BASOPHIL 0 % (0-3); EOSINOPHIL 0 % (0-5); LYMPHOCYTE 18 % (20-50); MONOCYTE 7 % (2-10); NEUTROPHILS 74 % (40-80); PLATELET ESTIMATE SLIGHT DECREASED (NORMAL)
[2018-04-20 12:16] LABS: PLATELET MORPHOLOGY PLATELET CLUMPS SEEN (NORMAL)
[2018-04-20] MEDS: INSULIN ASPART SLIDING SCALE 100 UNITS/ML UNIT SUBQ SCH ×3 (12:25→20:44)
[2018-04-20] MEDS: Sodium Chloride 0.9% 1,000 ML IV SCH (20:24)
[2018-04-20] MEDS ORDERED: Insulin Detemir 100 units/mL 10mL Vial SUBQ SCH (21:00)
--- NOTE | 2018-04-21 01:40 | Consultation ---
DATE OF CONSULTATION: 04/20/2018 HISTORY OF PRESENT ILLNESS: A 58-year-old female, currently in the hospital, states she is here because of "sugar," noted to be homeless diabetic, noncompliant, coming in for a high blood sugar, angry, shouting. The patient stating that she hates people and does not want to go to a intermediate. Disoriented to year, does not know the month, does not know the day attesting to anxiety, attesting to depression. States she has been homeless for about a year. States that she does not like to be in shelters because she does not want to be around people. The patient states she has some difficulty taking care of herself. Attesting to sadness, hopelessness, anxiety. No suicidal ideations. The patient is not the best historian. PAST PSYCHIATRIC HISTORY: Denies any suicide attempts. SOCIAL HISTORY: The patient was born in [place], no family, currently . Not , no kids, no drugs, no alcohol, no tobacco. The patient alludes to having history of schizophrenia. MENTAL STATUS EXAMINATION: Disheveled, unkempt, fair eye contact. Speech, decreased content. Mood: "Not good." I am here for my sugar. Affect, flat. Thought processes were tangential, but redirectable. No SI, no HI. The patient alludes to history of voices in the past, hallucinations. Insight and judgment diminished. PROVISIONAL DIAGNOSIS: Schizophrenia, poor medication and treatment compliance. Under medical, please see full H and P. RECOMMENDATIONS AND PLAN: Concerns for grave disability. Concerns for her ability to care for basic needs. PLAN: We will continue to monitor. The patient may need a 5150 hold. We will make that determination upon medical clearance to see if there is any improvement as her medical problems are addressed perhaps that she will improve in regards to her mentation. We will monitor and follow up. [facility]# [id number]
[2018-04-21] MEDS: INSULIN ASPART SLIDING SCALE 100 UNITS/ML UNIT SUBQ SCH ×4 (06:49→20:33)
--- NOTE | 2018-04-21 08:23 | General Progress Note ---
Subjective - Review of Systems Service Date: 04/21/18 Subjective: Patient is awake, alert but confused. Patient is poor historian. She was originally admitted for UTI and hyperglycemia +400 BS. Patient is slowly improving. Currently taking insulin sq with some coaxing. Objective - Results Result Diagrams: 04/20/18 11:20 04/20/18 11:20 Recent Labs: Laboratory Last Values WBC 6.8 Th/cmm (4.8-10.8) D 04/20/18 11:20 RBC 4.97 Mil/cmm (3.80-5.10) 04/20/18 11:20 Hgb 14.1 gm/dL (12-16) 04/20/18 11:20 Hct 43.6 % (41.0-60) 04/20/18 11:20 MCV 87.7 fl (81-100) 04/20/18 11:20 MCH 28.3 pg (27.0-31.0) 04/20/18 11:20 MCHC Differential 32.3 pg (28.0-36.0) 04/20/18 11:20 RDW 14.5 % (11.5-20.0) 04/20/18 11:20 Plt Count 72 Th/cmm (150-400) L D 04/20/18 11:20 MPV 8.9 fl 04/20/18 11:20 Add Manual Diff YES 04/20/18 11:20 Neutrophils % 71.7 % (40.0-80.0) 04/19/18 15:05 Band Neutrophils % 1 % (0-10) 04/20/18 11:20 Lymphocytes % 21.2 % (20.0-50.0) 04/19/18 15:05 Monocytes % 5.0 % (2.0-10.0) 04/19/18 15:05 Eosinophils % 2.0 % (0.0-5.0) 04/19/18 15:05 Basophils % 0.1 % (0.0-2.0) 04/19/18 15:05 Neutrophils (Manual) 74 % (40-80) 04/20/18 11:20 Lymphocytes 18 % (20-50) L 04/20/18 11:20 Monocytes 7 % (2-10) 04/20/18 11:20 Eosinophils 0 % (0-5) 04/20/18 11:20 Basophils 0 % (0-3) 04/20/18 11:20 Platelet Estimate SLIGHT DECREASED (NORMAL) 04/20/18 11:20 Platelet Morphology PLATELET CLUMPS SEEN (NORMAL) 04/20/18 11:20 Sodium 132 mEq/L (136-145) L 04/20/18 11:20 Potassium 4.4 mEq/L (3.5-5.1) 04/20/18 11:20 Chloride 101 mEq/L (98-107) 04/20/18 11:20 Carbon Dioxide 21.7 mEq/L (21.0-31.0) 04/20/18 11:20 Anion Gap 13.7 (7.0-16.0) 04/20/18 11:20 BUN 24 mg/dL (7-25) 04/20/18 11:20 Creatinine 0.8 mg/dL (0.6-1.2) 04/20/18 11:20 Est GFR ( Amer) > 60.0 ml/min (>90) 04/20/18 11:20 Est GFR (Non-Af Amer) > 60.0 ml/min 04/20/18 11:20 BUN/Creatinine Ratio 30.0 04/20/18 11:20 Glucose 420 mg/dL (70-105) H 04/20/18 11:20 POC Glucose 386 MG/DL (70 - 105) H 04/21/18 06:31 Calcium 9.0 mg/dL (8.6-10.3) 04/20/18 11:20 Total Bilirubin 0.7 mg/dL (0.3-1.0) 04/20/18 11:20 AST 123 U/L (13-39) H 04/20/18 11:20 ALT 91 U/L (7-52) H 04/20/18 11:20 Alkaline Phosphatase 124 U/L (34-104) H 04/20/18 11:20 Total Protein 6.3 gm/dL (6.0-8.3) 04/20/18 11:20 Albumin 3.0 gm/dL (3.7-5.3) L 04/20/18 11:20 Globulin 3.3 gm/dL 04/20/18 11:20 Albumin/Globulin Ratio 0.9 (1.0-1.8) L 04/20/18 11:20 TSH 1.99 uIU/ml (0.34-5.60) 04/19/18 16:13 Urine Source CLEAN C 04/19/18 12:45 Urine Color YELLOW 04/19/18 12:45 Urine Clarity HAZY (CLEAR) 04/19/18 12:45 Urine pH 5.5 (4.6 - 8.0) 04/19/18 12:45 Ur Specific [place] 1.020 (1.005-1.030) 04/19/18 12:45 Urine Protein 30 mg/dL (NEGATIVE) H 04/19/18 12:45 Urine Glucose (UA) >=1000 mg/dL (NEGATIVE) H 04/19/18 12:45 Urine Ketones NEGATIVE mg/dL (NEGATIVE) 04/19/18 12:45 Urine Blood SMALL (NEGATIVE) H 04/19/18 12:45 Urine Nitrate NEGATIVE (NEGATIVE) 04/19/18 12:45 Urine Bilirubin NEGATIVE (NEGATIVE) 04/19/18 12:45 Urine Urobilinogen 0.2 E.U./dL (0.2 - 1.0) 04/19/18 12:45 Ur Leukocyte Esterase TRACE (NEGATIVE) H 04/19/18 12:45 Urine RBC 2-5 /hpf (0-5) 04/19/18 12:45 Urine WBC 0-2 /hpf (0-5) 04/19/18 12:45 Ur Epithelial Cells OCCASIONAL /lpf (FEW) 04/19/18 12:45 Urine Bacteria NONE SEEN /hpf (NONE SEEN) 04/19/18 12:45 Serum Ketones NEGATIVE (NEGATIVE) 04/19/18 16:53 - Physical Exam Vitals and I&O: Vital Signs Temp 97.2 F 04/21/18 04:23 Pulse 65 04/21/18 04:23 Resp 17 04/21/18 04:23 BP 154/67 04/21/18 04:23 Pulse Ox 97 04/21/18 04:23 Intake & Output 04/20/18 04/21/18 04/21/18 18:59 06:59 18:59 Intake Total 1200 650 Balance 1200 650 Weight (lbs) 52.163 kg 52.163 kg Intake: Oral 1200 650 Other: # Voids 5 3 # Bowel Movements 1 1 Stool Characteristics Soft Soft Weight Source Bedscale Bedscale Active Medications: Current Medications Fluconazole (Diflucan) 100 mg PO DAILY [facility] Stop: 06/20/18 08:59 Glipizide (Glucotrol) 10 mg PO DAILY [facility] Stop: 06/20/18 08:59 Sodium Chloride (Nacl 0.9%) 1,000 mls @ 50 mls/hr IV .Q20H [facility] Stop: 06/18/18 17:47 Last Admin: 04/20/18 20:24 Dose: Not Given Insulin Aspart (Novolog Insulin Sliding Scale) 0 units SUBQ ACHS [facility]; Protocol Stop: 06/19/18 11:29 Last Admin: 04/21/18 06:49 Dose: 10 units Insulin Detemir (Levemir Insulin) 10 units SUBQ HS [facility]; Protocol Stop: 06/19/18 20:59 Last Admin: 04/20/18 20:46 Dose: 10 units Risperidone (Risperdal) 0.5 mg PO BID [facility]; Protocol Stop: 06/20/18 08:59 Trimethoprim/Sulfamethoxazole (Bactrim Ds) 1 tab PO BID [facility] Stop: 06/19/18 08:59 Last Admin: 04/20/18 16:24 Dose: 1 tab General: Alert, No acute distress HEENT: Atraumatic, PERRLA, EOMI Neck: Supple, no JVD Cardiovascular: Regular rate, Normal S1, Normal S2 Lungs: Clear to auscultation Abdomen: Bowel sounds Extremities: no Clubbing, no Cyanosis, no Edema - Procedures Procedures: Procedures Procedure Code Date ELECTROCARDIOGRAM 89.52 05/25/95 INJECT/INFUSE NEC 99.29 12/02/12 NASAL SURGERY PROCEDURE [id number] 12/05/01 REMOVE NASAL PACKING 97.32 12/05/01 THER/PROPH/DIAG INJ SC/IM 79636 12/02/12 Assessment/Plan - Assessment Assessment: hyperglycemia slowly improved. diabetes mellitus .... better. hyponatremia Na+ 133 UTI ... on rocephin IV depression anxiety schizophrenia - Plan Plan: will order repeat CBC,CMP,TSH,HbA1c dietary consult increase Levemir 15u SQ qhs insulin low sliding scale add Glipizide 10mg daily Nutritional Asmnt/Malnutr-PDOC - Dietary Evaluation Malnutrition Findings (Please click <Entered> for more info): Nutritional Asmnt/Malnutrition Start: 04/20/18 17: 26 Text: Status: Complete Freq: Protocol: Document 04/20/18 17:26 LCMINALG (Rec: 04/20/18 17:37 [email or web address] [email or web address]) Nutritional Asmnt/Malnutrition Patient General Information Nutritional Screening High Risk Consult Diagnosis hyperglycemia Pertinent Medical Hx/Surgical Hx DM Subjective Information Pt seen eating lunch in her room at time of visit, alert but confused. Not able to get more diet hx from pt. Per nurse, pt is not compliant with diet. Consult received for uncontroled blood sugar. Current Diet Order/ Nutrition Support 1800 kcal ADA Pertinent Medications glucotrol, novolog, levemir, nacl 0.9% Pertinent Labs 04/20 Na 132, Glucose 420, POC 256-429 04/19 na 133, Glucose 498 Nutritional Hx/Data Height 1.5 m Height (Calculated Centimeters) 149.9 Current Weight (lbs) 50.802 kg Weight (Calculated Kilograms) 50.8 Weight (Calculated Grams) 33544.3 [place] Body Weight 98 Body Mass Index (BMI) 22.6 Weight Status Approriate GI Symptoms GI Symptoms None Last BM none Difficult in: None Skin Integrity/Comment: intact Estimated Nutritional Goals BEE in Kcals: Using Current wt Calories/Kcals/Kg 25-30 Kcals Calculated 7734-5262 Protein: Using Current wt Protein g/k-1.2 Protein Calculated 51-61 Fluid: ml 1275-1530ml (1ml/kcal) Nutritional Problem 1. Problem Problem altered nutrition related labs Etiology uncontroled DM and not following therapeutic diet Signs/Symptoms: Glucose 420-498, POC 256-429 Malnutrition Alert Is there a minimum of two criteria No selected? Query Text:Check all the applicable criteria. A minimum of two criteria are recommended for diagnosis of either severe or non-severe malnutrition. Malnutrition Related to Morbid Obesity Malnutrition related to morbid obesity No Intervention/Recommendation Comments 1. Continue with 1800 kcal ADA diet as ordered. Limit snacks between meals. 2. Monitor PO intake, wt, labs and skin integrity 3. F/U as moderate risk in 3-5 days, 04/23-04/25, PO check 04/22 Expected Outcomes/Goals Expected Outcomes/Goals 1. PO intake to meet at least 75% of nutritional needs. 2. Wt stability, skin to remain intact, labs to approach WNL.
[2018-04-21] MEDS: Sulfamethoxazole/TMP 800/160mg Tab PO SCH ×2 (08:54→17:09)
[2018-04-21] MEDS: Sodium Chloride 0.9% 1,000 ML IV SCH (11:51)
[2018-04-21] MEDS ORDERED: Insulin Detemir 100 units/mL 10mL Vial SUBQ SCH (21:00)
[2018-04-22] MEDS: Sodium Chloride 0.9% 1,000 ML IV SCH (05:06)
[2018-04-22] MEDS: INSULIN ASPART SLIDING SCALE 100 UNITS/ML UNIT SUBQ SCH ×2 (07:53→12:02)
--- NOTE | 2018-04-22 08:18 | General Progress Note ---
Subjective - Review of Systems Service Date: 04/22/18 Subjective: Patient is awake, alert but confused. still non compliant with diet. Asking for additional snacks/meals. BS volatile. Objective - Results Result Diagrams: 04/20/18 11:20 04/20/18 11:20 Recent Labs: Laboratory Last Values WBC 6.8 Th/cmm (4.8-10.8) D 04/20/18 11:20 RBC 4.97 Mil/cmm (3.80-5.10) 04/20/18 11:20 Hgb 14.1 gm/dL (12-16) 04/20/18 11:20 Hct 43.6 % (41.0-60) 04/20/18 11:20 MCV 87.7 fl (81-100) 04/20/18 11:20 MCH 28.3 pg (27.0-31.0) 04/20/18 11:20 MCHC Differential 32.3 pg (28.0-36.0) 04/20/18 11:20 RDW 14.5 % (11.5-20.0) 04/20/18 11:20 Plt Count 72 Th/cmm (150-400) L D 04/20/18 11:20 MPV 8.9 fl 04/20/18 11:20 Add Manual Diff YES 04/20/18 11:20 Neutrophils % 71.7 % (40.0-80.0) 04/19/18 15:05 Band Neutrophils % 1 % (0-10) 04/20/18 11:20 Lymphocytes % 21.2 % (20.0-50.0) 04/19/18 15:05 Monocytes % 5.0 % (2.0-10.0) 04/19/18 15:05 Eosinophils % 2.0 % (0.0-5.0) 04/19/18 15:05 Basophils % 0.1 % (0.0-2.0) 04/19/18 15:05 Neutrophils (Manual) 74 % (40-80) 04/20/18 11:20 Lymphocytes 18 % (20-50) L 04/20/18 11:20 Monocytes 7 % (2-10) 04/20/18 11:20 Eosinophils 0 % (0-5) 04/20/18 11:20 Basophils 0 % (0-3) 04/20/18 11:20 Platelet Estimate SLIGHT DECREASED (NORMAL) 04/20/18 11:20 Platelet Morphology PLATELET CLUMPS SEEN (NORMAL) 04/20/18 11:20 Sodium 132 mEq/L (136-145) L 04/20/18 11:20 Potassium 4.4 mEq/L (3.5-5.1) 04/20/18 11:20 Chloride 101 mEq/L (98-107) 04/20/18 11:20 Carbon Dioxide 21.7 mEq/L (21.0-31.0) 04/20/18 11:20 Anion Gap 13.7 (7.0-16.0) 04/20/18 11:20 BUN 24 mg/dL (7-25) 04/20/18 11:20 Creatinine 0.8 mg/dL (0.6-1.2) 04/20/18 11:20 Est GFR ( Amer) > 60.0 ml/min (>90) 04/20/18 11:20 Est GFR (Non-Af Amer) > 60.0 ml/min 04/20/18 11:20 BUN/Creatinine Ratio 30.0 04/20/18 11:20 Glucose 420 mg/dL (70-105) H 04/20/18 11:20 POC Glucose 288 MG/DL (70 - 105) H 04/22/18 06:23 Calcium 9.0 mg/dL (8.6-10.3) 04/20/18 11:20 Total Bilirubin 0.7 mg/dL (0.3-1.0) 04/20/18 11:20 AST 123 U/L (13-39) H 04/20/18 11:20 ALT 91 U/L (7-52) H 04/20/18 11:20 Alkaline Phosphatase 124 U/L (34-104) H 04/20/18 11:20 Total Protein 6.3 gm/dL (6.0-8.3) 04/20/18 11:20 Albumin 3.0 gm/dL (3.7-5.3) L 04/20/18 11:20 Globulin 3.3 gm/dL 04/20/18 11:20 Albumin/Globulin Ratio 0.9 (1.0-1.8) L 04/20/18 11:20 TSH 1.99 uIU/ml (0.34-5.60) 04/19/18 16:13 Urine Source CLEAN C 04/19/18 12:45 Urine Color YELLOW 04/19/18 12:45 Urine Clarity HAZY (CLEAR) 04/19/18 12:45 Urine pH 5.5 (4.6 - 8.0) 04/19/18 12:45 Ur Specific [place] 1.020 (1.005-1.030) 04/19/18 12:45 Urine Protein 30 mg/dL (NEGATIVE) H 04/19/18 12:45 Urine Glucose (UA) >=1000 mg/dL (NEGATIVE) H 04/19/18 12:45 Urine Ketones NEGATIVE mg/dL (NEGATIVE) 04/19/18 12:45 Urine Blood SMALL (NEGATIVE) H 04/19/18 12:45 Urine Nitrate NEGATIVE (NEGATIVE) 04/19/18 12:45 Urine Bilirubin NEGATIVE (NEGATIVE) 04/19/18 12:45 Urine Urobilinogen 0.2 E.U./dL (0.2 - 1.0) 04/19/18 12:45 Ur Leukocyte Esterase TRACE (NEGATIVE) H 04/19/18 12:45 Urine RBC 2-5 /hpf (0-5) 04/19/18 12:45 Urine WBC 0-2 /hpf (0-5) 04/19/18 12:45 Ur Epithelial Cells OCCASIONAL /lpf (FEW) 04/19/18 12:45 Urine Bacteria NONE SEEN /hpf (NONE SEEN) 04/19/18 12:45 Serum Ketones NEGATIVE (NEGATIVE) 04/19/18 16:53 - Physical Exam Vitals and I&O: Vital Signs Temp 96.6 F 04/21/18 20:00 Pulse 81 04/21/18 20:00 Resp 19 04/21/18 20:00 BP 135/55 04/21/18 20:00 Pulse Ox 96 04/21/18 20:00 Intake & Output 04/21/18 04/22/18 04/22/18 18:59 06:59 18:59 Intake Total 250 Balance 250 Weight (lbs) 53.977 kg Intake: Oral 250 Other: # Voids 2 # Bowel Movements 1 Stool Characteristics Soft Weight Source Bedscale Active Medications: Current Medications Fluconazole (Diflucan) 100 mg PO DAILY [facility] Stop: 06/20/18 08:59 Last Admin: 04/21/18 08:54 Dose: 100 mg Glipizide (Glucotrol) 10 mg PO DAILY [facility] Stop: 06/20/18 08:59 Last Admin: 04/21/18 08:55 Dose: 10 mg Sodium Chloride (Nacl 0.9%) 1,000 mls @ 50 mls/hr IV .Q20H [facility] Stop: 06/18/18 17:47 Last Admin: 04/22/18 05:06 Dose: Not Given Insulin Aspart (Novolog Insulin Sliding Scale) 0 units SUBQ ACHS [facility]; Protocol Stop: 06/19/18 11:29 Last Admin: 04/22/18 07:53 Dose: 6 units Insulin Detemir (Levemir Insulin) 15 units SUBQ HS [facility]; Protocol Stop: 06/20/18 20:59 Last Admin: 04/21/18 20:35 Dose: 15 units Risperidone (Risperdal) 0.5 mg PO BID [facility]; Protocol Stop: 06/20/18 08:59 Trimethoprim/Sulfamethoxazole (Bactrim Ds) 1 tab PO BID [facility] Stop: 06/19/18 08:59 Last Admin: 04/21/18 17:09 Dose: 1 tab General: Alert, No acute distress HEENT: Atraumatic, PERRLA, EOMI Neck: Supple, no JVD Cardiovascular: Regular rate, Normal S1, Normal S2 Lungs: Clear to auscultation Abdomen: Bowel sounds Extremities: no Clubbing, no Cyanosis, no Edema - Procedures Procedures: Procedures Procedure Code Date ELECTROCARDIOGRAM 89.52 05/25/95 INJECT/INFUSE NEC 99.29 12/02/12 NASAL SURGERY PROCEDURE 49527 12/05/01 REMOVE NASAL PACKING 97.32 12/05/01 THER/PROPH/DIAG INJ SC/IM 45508 12/02/12 Assessment/Plan - Assessment Assessment: hyperglycemia slowly improved. diabetes mellitus .... better. hyponatremia Na+ 133 UTI ... on rocephin IV depression anxiety schizophrenia - Plan Plan: will order repeat CBC,CMP,TSH,HbA1c dietary consult increase Levemir 18u SQ qhs insulin low sliding scale add Glipizide 10mg daily add Metformin director social for placement. Nutritional Asmnt/Malnutr-PDOC - Dietary Evaluation Malnutrition Findings (Please click <Entered> for more info): Nutritional Asmnt/Malnutrition Start: 04/20/18 17: 26 Text: Status: Complete Freq: Protocol: Document 04/20/18 17:26 MONA (Rec: 04/20/18 17:37 [email or web address]) Nutritional Asmnt/Malnutrition Patient General Information Nutritional Screening High Risk Consult Diagnosis hyperglycemia Pertinent Medical Hx/Surgical Hx DM Subjective Information Pt seen eating lunch in her room at time of visit, alert but confused. Not able to get more diet hx from pt. Per nurse, pt is not compliant with diet. Consult received for uncontroled blood sugar. Current Diet Order/ Nutrition Support 1800 kcal ADA Pertinent Medications glucotrol, novolog, levemir, nacl 0.9% Pertinent Labs 04/20 Na 132, Glucose 420, POC 256-429 04/19 na 133, Glucose 498 Nutritional Hx/Data Height 1.5 m Height (Calculated Centimeters) 149.9 Current Weight (lbs) 50.802 kg Weight (Calculated Kilograms) 50.8 Weight (Calculated Grams) 86670.3 [place] Body Weight 98 Body Mass Index (BMI) 22.6 Weight Status Approriate GI Symptoms GI Symptoms None Last BM none Difficult in: None Skin Integrity/Comment: intact Estimated Nutritional Goals BEE in Kcals: Using Current wt Calories/Kcals/Kg 25-30 Kcals Calculated 0213-0681 Protein: Using Current wt Protein g/k-1.2 Protein Calculated 51-61 Fluid: ml 1275-1530ml (1ml/kcal) Nutritional Problem 1. Problem Problem altered nutrition related labs Etiology uncontroled DM and not following therapeutic diet Signs/Symptoms: Glucose 420-498, POC 256-429 Malnutrition Alert Is there a minimum of two criteria No selected? Query Text:Check all the applicable criteria. A minimum of two criteria are recommended for diagnosis of either severe or non-severe malnutrition. Malnutrition Related to Morbid Obesity Malnutrition related to morbid obesity No Intervention/Recommendation Comments 1. Continue with 1800 kcal ADA diet as ordered. Limit snacks between meals. 2. Monitor PO intake, wt, labs and skin integrity 3. F/U as moderate risk in 3-5 days, 04/23-04/25, PO check 04/22 Expected Outcomes/Goals Expected Outcomes/Goals 1. PO intake to meet at least 75% of nutritional needs. 2. Wt stability, skin to remain intact, labs to approach WNL.
[2018-04-22] MEDS: Sulfamethoxazole/TMP 800/160mg Tab PO SCH (08:31)
[2018-04-22] MEDS ORDERED: Insulin Detemir 100 units/mL 10mL Vial SUBQ SCH (21:00)
--- NOTE | 2018-04-26 13:06 | Discharge Summary ---
DATE OF DISCHARGE: 04/22/2018 PRELIMINARY DIAGNOSES: 1. Hyperglycemia. 2. Diabetes mellitus. 3. Hyponatremia. 4. Urinary tract infection. 5. Depression. DISCHARGE DIAGNOSES: 1. Hyperglycemia, improved. 2. Diabetes mellitus type 2, on insulin. 3. Hyponatremia, now resolved. 4. Urinary tract infection. 5. Depression. BRIEF HISTORY OF PRESENT ILLNESS: This is a 58-year-old female who presents to [facility] with hyperglycemia, elevated blood sugars around the 495 region. The patient has a known history of diabetes and is on insulin, but is noncompliant with her medications and diet. The patient was noted to have increased urinary frequency and urgency and found to have trace leukocyte esterase and small blood in her urine. The patient also underwent some routine lab work, which revealed the following, white count was 4.7, hemoglobin 13.0, hematocrit 39.5, platelets 145,000. Sodium was slightly decreased at 133, potassium 3.9, BUN 17, creatinine 0.7, glucose 498. Her UA revealed 30 protein, glucose was over 1000. Blood was small, leucocyte esterase was trace, serum ketone levels were negative. The patient has a history of diabetes, hyponatremia, chronic depression. The patient was subsequently admitted for further evaluation and treatment. HOSPITAL COURSE: The patient improved during her hospital stay. The patient was given a dose of Rocephin from the ER, which was continued during her hospital stay; however, the patient refused to take IV medications and therefore, the patient was started on Bactrim-DS 1 tablet twice daily. The patient was noted to be somewhat noncompliant with her diet and was complaining of feeling hungry and wanting seconds and thirds. The patient did have dietary consult during her hospital stay; however, the patient may have some underlying psychiatric disorder. The patient was seen and evaluated by Psychiatry. Please see dictated report. The patient was subsequently discharged in stable condition, was sent to a local halfway because the patient is homeless and was to continue her home medications. [facility]# [id number]
== END 2018-04-22 13:04 | disposition home or self-care (01) | DRG 463 ==
LOC: ER 12:27 → MSI 18:44
PROVIDERS: ADMIT Family Medicine; ATTEND Family Medicine
DX: N39.0 Urinary tract infection, site not specified (principal); E11.65 Type 2 diabetes mellitus with hyperglycemia; F41.9 Anxiety disorder, unspecified; F20.9 Schizophrenia, unspecified; E87.1 Hypo-osmolality and hyponatremia; F32.9 Major depressive disorder, single episode, unspecified; Z59.0 Homelessness; Z88.8 Allergy status to other drugs, medicaments and biological substances; Z91.19 Patient's noncompliance with other medical treatment and regimen; Z79.4 Long term (current) use of insulin
CPT/HCPCS: 36415-UA; 80053-TC; 81001-TC; 82010-TC; 82948-90; 83036-90; 84443-TC; 85007-TC; 85025-TC; J1815